=== PATIENT | female | born 1945 | race Caucasian/White ===

== ENCOUNTER 2023-06-11 08:53 | Outpatient (RCR) | payer MEDICARE, SELFPAY | END 2023-07-15 16:09 | disposition home or self-care (01) | LOC: HO.WCC 08:53 | PROVIDERS: PCP Pediatrics; Referring Provider Pediatrics; Visit Provider Surgery | DX: I87.313 Chronic venous hypertension (idiopathic) with ulcer of bilateral lower extremity (principal); L97.822 Non-pressure chronic ulcer of other part of left lower leg with fat layer exposed; L97.812 Non-pressure chronic ulcer of other part of right lower leg with fat layer exposed; R73.03 Prediabetes; G62.9 Polyneuropathy, unspecified; I10 Essential (primary) hypertension; I73.9 Peripheral vascular disease, unspecified; Z87.891 Personal history of nicotine dependence; Z95.2 Presence of prosthetic heart valve; Z86.73 Personal history of transient ischemic attack (TIA), and cerebral infarction without residual deficits; Z86.711 Personal history of pulmonary embolism | CPT/HCPCS: 11042; 97597; 99212 ==

== ENCOUNTER 2023-08-20 09:31 | Outpatient (REF) | payer MEDICARE, SELFPAY ==
[2023-08-20 09:56] LABS: MANUAL DIFF FLAG NO
[2023-08-20 10:18] LABS: Basophils Absolute Auto 0.1 X10*3/uL (0.0-0.2); Basophils Percent Auto 0.7 % (0-2); Eosinophils Absolute Auto 0.4 X10*3/uL (0.0-0.4); Eosinophils Percent Auto 4.3 % (0-4); Hematocrit 43.2 % (37.0-47.0); Hemoglobin 13.9 g/dl (12.0-16.0); Imm Gran Abs Auto 0.04 X10*3/uL (0.00-0.03); Imm Gran Pct Auto 0.4 % (0.0-0.4); Lymphocytes Absolute Auto 1.8 X10*3/uL (1.2-4.9); Mean Corpuscular HGB Conc 32.2 g/dl (31.0-35.0); Mean Corpuscular Hemoglobin 28.7 pg (27.0-33.0); Mean Corpuscular Volume 89.3 fL (80.0-98.0); Mean Platelet Volume 9.2 fL (9.4-12.3); Monocytes Absolute Auto 0.9 X10*3/uL (0.1-1.2); Monocytes Percent Auto 9.5 % (2-11); Neutrophils Absolute Auto 6.2 x10*3/uL (2.0-8.3); Neutrophils Percent Auto 66.1 % (45-73); Platelet Count 167 X10*3/uL (160-400); Red Blood Count 4.84 X10*6/uL (4.20-5.50); Red Cell Distribution Width 14.3 % (11.0-16.0); White Blood Count 9.4 X10*3/uL (4.8-10.8)
[2023-08-20 11:03] LABS: Erythrocyte Sedimentation Rate 7 MM/HR (0-20)
== END 2023-08-20 09:32 | disposition home or self-care (01) ==
LOC: HO.LAB 09:31
PROVIDERS: Visit Provider Psychiatry & Neurology Neurology
DX: G44.209 Tension-type headache, unspecified, not intractable (principal); Z20.2 Contact with and (suspected) exposure to infections with a predominantly sexual mode of transmission
CPT/HCPCS: 36415; 85025; 85652

== ENCOUNTER 2025-08-02 10:15 | Outpatient (AMB) | payer MEDICARE, SELFPAY ==
--- NOTE | 2025-08-02 10:30 | A.OFFVIS_ITS ---
Intake Visit Reasons: Follow up Allergies amoxicillin (From Augmentin) Allergy (Unknown, Verified 08/02/25 10:31) Unknown clarithromycin (From Biaxin) Allergy (Unknown, Verified 08/02/25 10:31) Unknown clavulanic acid (From Augmentin) Allergy (Unknown, Verified 08/02/25 10:31) Unknown codeine Allergy (Unknown, Verified 08/02/25 10:31) Unknown oxycodone Allergy (Unknown, Verified 08/02/25 10:31) Unknown pentazocine (From Talwin) Allergy (Unknown, Verified 08/02/25 10:31) Unknown salsalate (From Disalcid) Allergy (Unknown, Verified 08/02/25 10:31) Unknown Medication List - Last Reconciled 08/02/25 by Laila Shah CNP apixaban (Eliquis) 5 mg PO BID celecoxib 200 mg PO DAILY cholecalciferol (vitamin D3) (Vitamin D3) 25 mcg PO DAILY clopidogrel 75 mg PO DAILY cyanocobalamin (vitamin B-12) 1,000 mcg PO DAILY digoxin 125 mcg PO Q OTHER DAY empagliflozin (Jardiance) 10 mg PO QAM estradiol 0.01%(0.1mg/gram) vaginal ezetimibe 10 mg PO DAILY fluticasone furoate-vilanterol 100-25 mcg/dose (Breo Ellipta) 1 ea inhalation DAILY fluticasone propionate 50 mcg/actuation sprays intranasal hydromorphone mg PO metoprolol succinate ER 50 mg PO DAILY montelukast 10 mg PO QPM nortriptyline 25 mg PO BEDTIME pantoprazole 40 mg PO BID rosuvastatin 20 mg PO BEDTIME spironolactone 25 mg PO DAILY umeclidinium 62.5 mcg/actuation (Incruse Ellipta) 1 inh inhalation DAILY zolpidem 5 mg PO BEDTIME PRN HPI Comments Details: She had R foot surgery in 06/2025 and had Watchman procedure on 07/27/2025, on Plavix and Eliquis for now with plan to stop Eliquis in the future. Headaches have been up and down. Some days will feel good with no headaches, and other days will have heavy pressure to front of head and fatigue. May be worse with rainy weather. More headaches and fatigue lately. Sleep was okay with CPAP. Had double bypass surgery in 08/2024. Left leg is bit weaker. No stamina. Needs to nap by early afternoon. Sleeping about 9-10 hours/night, using CPAP. Gets some headaches, bifrontal pressure and eyes feel heavy. No photophobia, sonophobia, nausea, or vomiting. More headaches when cloudy or rainy. Barium swallow study was okay, pantoprazole increased to twice a day which has helped with swallowing and feeling of food getting stuck. No issues with speech. Headaches are a frontal pressure above eyes, head and eyes feel heavy with low energy and fatigue. More headaches when cloudy or rainy. No photophobia, sonophobia, nausea, or vomiting. Had cardiac cath with stent placement on 03/10/2024, was found to have 95% blockage. Was hospitalized x2 in 12/2022 while in [place] for CHF exacerbation, pulmonary infection, and foot infection. Reports hx of stroke in 07/2021 following aortic valve replacement, presented with word finding difficulty, seen at [facility]. No speech difficulties, occasional difficulty swallowing. Feels she has some issues with spatial perception as she will knock things over, unsure when this began. No new weakness, poor upper body/arm strength following bilateral rotator cuff repair around 2014 and 14 level spinal fusion in 2018. COVID positive x3, last 03/2022 with ongoing daily headaches and has been diagnosed with long COVID. Bifrontal headaches shortly after waking, lasting most of day. No associated symptoms such as photophobia, nausea, or vomiting. Was taking Tylenol 1000mg 1-2x/day for chronic back pain, no relief for headaches. Feels dizzy, describes as sensation of rocking back and forth, feeling unsteady even in sitting position. Tried meclizine without success. CT scan sinuses unremarkable. No significant hx of headaches prior to COVID, except for occasional sinus headache. [facility] Medical History (Updated 08/02/25 @ 12:01 by Laila Shah CNP) Presence of Watchman left atrial appendage closure device CHF (congestive heart failure) ROBBY on CPAP Afib IgG deficiency Asthma Post covid-19 condition, unspecified Surgical History (Updated 08/02/25 @ 12:01 by Laila Shah CNP) S/P foot surgery, right Status post double vessel coronary artery bypass H/O heart artery stent S/P spinal fusion S/P right rotator cuff repair S/P left rotator cuff repair S/P aortic valve replacement Review of Systems Const Denies chills, Denies daytime sleepiness, Denies difficulty sleeping, Reports fatigue, Denies fever(s), Denies frequent falls, Reports headache(s), Denies increased appetite, Denies poor appetite, Denies snoring, Denies weakness, Denies weight gain and Denies weight loss Eyes Denies loss of vision ENT Denies vertigo, Denies dizziness, Reports headache(s) and Reports neck pain Card Denies chest pain at rest, Denies chest pain with activity, Denies syncope, Denies leg edema, Denies palpitations, Denies dyspnea and Denies dyspnea on exertion Resp Denies cough, Denies dyspnea, Denies dyspnea on exertion and Denies snoring GI Denies abdominal pain, Denies constipation, Denies heartburn, Denies diarrhea and Denies nausea Denies urinary frequency, Denies urinary incontinence and Denies urinary urgency Musc Denies abnormal gait, Reports back pain, Reports myalgias, Denies arthralgias, Reports neck pain, Denies numbness and Denies tingling Neuro Denies abnormal gait, Denies vertigo, Denies dizziness, Denies syncope, Denies frequent falls, Reports headache(s), Denies lack of coordination, Denies loss of vision, Denies memory loss, Denies numbness, Denies Other visual disturbances, Denies restless legs, Denies seizure-like activity, Denies tingling, Denies paresthesias, Denies tremor(s) and Denies weakness Psych Reports anxiety, Denies depression, Denies auditory hallucinations, Denies memory loss and Denies visual hallucinations Endo Reports fatigue and Denies palpitations Physical Exam Const Other: General Appearance:? normal, in no acute distress. Heart:? S1, S2 normal, no murmurs. Lungs:? clear anteriorly and posteriorly. Musculoskeletal:? normal. Extremities:? no edema. Psych:? alert, oriented, cognitive function intact, cooperative with exam. 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 5-/5 L iliopsoas. With walker. Mental Status: alert and oriented X 3. Normal attention, orientation, memory, and affect. Cranial Nerves: Pupils are equal, round, and reactive to light. External ocular muscles are intact. Visual cobb are full, no ptosis. Face is symmetrical, no facial weakness or droop. Facial sensations are normal. Tongue protrudes in midline. Palate elevates symmetrically. Shoulder shrugging is normal Motor Examination: As above. Sensory Exam: Normal light touch, temperature, pinprick, vibration, and joint- position sensations. Rhomberg sign is absent. Coordination: No ataxia. No titubation. Gait Exam: With walker. Cerebellar Signs: [id number] is okay. Extrapyramidal System: No tremor, rigidity with normal facial expressions. No bradykinesia. No bradyphrenia. Normal arm swing and posture. No propulsion or retropulsion. Speech: Normal. Results Reviewed Results Reviewed: CTA head/neck at [facility] 07/2021: 1. No acute intracranial large vessel occlusion. 2. Atherosclerotic changes of the aortic arch and great vessels (Calcified plaque or embolus is noted within the left posterior sylvian fissue related to a left MCA branch vessel). Severe stenosis of the proximal nondominant artery due to heavy calcification (reported) CT head at [facility] 07/2021: No acute intracranial hemorrhage or mass effect. Focal hypodensity within the subcortical white matter of the left frontal lobe-centrum semioval which is nonspecific but given the clinical history could represent small recent ischemic infarction (reported). MRI brain WO at [facility] 07/2021: Acute-subacute left centrum semiovale, left posterior parietotemporal, and left putamen infarcts without hemorrhagic transformation (reported) Assessment & Plan Assessment & Plan (1) Tension headache: Code(s): G44.209 - Tension-type headache, unspecified, not intractable Category: Medical Plan: Continue nortriptyline 25mg 1 capsule at bedtime. (2) History of stroke: Comment: following aortic valve replacement in 07/2021 Code(s): Z86.73 - Personal history of transient ischemic attack (TIA), and cerebral infarction without residual deficits Category: Medical Plan: Reports from [facility] reviewed. She did not have CD of MRI/CT with her to review. She has been asked at multiple visits to bring CD with her to next appointment for review. Continue statin. Control blood pressure. Plan . Coding Level of Care Code Est Pt Level 4 (03451) Diagnoses Tension headache G44.209 History of stroke Z86.73
--- OUTSIDE RECORDS SUMMARY | 2025-08-02 12:06 | XMS_ITS | Clinical Summary ---
Author Organization [facility] Address [address] [place] [address] Care Team Providers Care Control Panel Operator Name Role Phone Mariano Shirley Primary Care Provider [phone] Allergies Active Allergy Reactions Criticality Noted Date Comments Adhesive Tape-Silicones Rash 09/15/2023 Aspirin Anaphylaxis High 09/15/2023 Clarithromycin Hives 09/15/2023 Oxycodone Rash 09/15/2023 Oxycodone-Acetaminophen Rash 09/15/2023 Quinine Rash 09/15/2023 Talwin Compound Rash 09/15/2023 Medications Vitamin D3 25 mcg (1,000 unit) capsule Take 1 capsule by mouth once a day. Active cyanocobalamin (VITAMIN B12) 100 mcg tablet Take 100 mcg by mouth once a day. Active FA/niacinamide/cu pric ox/Zn ox (NICOTINAMIDE ORAL) Take 1 tablet by mouth once a day. Active Bacillus coagulans (PROBIOTIC, B. COAGULANS, ORAL) Take 1 capsule by mouth once a day. Active albuterol (PROAIR HFA,VENTOLIN HFA) 90 mcg inhaler Inhale 1-2 puffs by mouth every 6 hours as needed for wheezing or shortness of breath. Use with spacer. Active ketoconazole (NIZORAL) 2% cream Apply 1 application. topically to the affected area once a day. Active immune globulin, human, (Hizentra) subcutaneous infusion Inject under the skin. Active metoprolol succinate XL (TOPROL XL) 100 mg tablet Take 50 mg by mouth once a day. Active digoxin (LANOXIN) 125 mcg (0.125 mg) tablet Take 125 mcg by mouth every other day. Active apixaban (ELIQUIS) 2.5 mg tablet Take 5 mg by mouth every 12 hours. Active clopidogreL (PLAVIX) 75 mg tablet Take 75 mg by mouth once a day. Active zolpidem (AMBIEN) 5 mg tablet Take 5 mg by mouth nightly as needed for sleep. Active montelukast (SINGULAIR) 10 mg tablet Take 10 mg by mouth nightly. Active pantoprazole DR (PROTONIX) 40 mg tablet Take 40 mg by mouth 2 times a day. Active ezetimibe (ZETIA) 10 mg tablet Take 10 mg by mouth once a day. Active magnesium glycinate 100 mg tablet Take 4 tablets by mouth once a day. Active alpha lipoic acid 600 mg capsule Take 1 capsule by mouth once a day. Active fluticasone propionate (FLONASE) 50 mcg/actuation nasal spray Administer 1 spray into each nostril once a day. Active HYDROmorphone (DILAUDID) 2 mg tablet Take 2 mg by mouth every 6 hours as needed for pain. Active cetirizine (ZyrTEC) 10 mg tablet Take 1 tablet (10 mg total) by mouth once a day. 30 tablet 11 4 Active fluticasone furoate-vilantero L (Breo Ellipta) 100-25 mcg/dose blister with device Inhale by mouth. Active furosemide (LASIX) 20 mg tablet Take 40 mg by mouth 2 times a day. Active nortriptyline (PAMELOR) 25 mg capsule Take 25 mg by mouth nightly. Active umeclidinium (Incruse Ellipta) 62.5 mcg/actuation blister with device Inhale by mouth. Active spironolactone (ALDACTONE) 25 mg tablet Take 25 mg by mouth once a day. Active empagliflozin (Jardiance) 10 mg Take 10 mg by mouth once a day. Active rosuvastatin (CRESTOR) 20 mg tablet Take 20 mg by mouth nightly. 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 09/15/2023 Drug reaction 09/15/2023 Encounters Date Type Department Care Team Description 05/31/[address] Allergy/Immunology [address] [place] [phone] Kelli Boland DO 05/11/2025 Results Follow-Up [facility] [address] Allergy/Immunology [address] [place] [phone] Kelli Boland DO 05/10/2025 9:30 AM EDT Office Visit [facility] [address] Allergy/Immunology [address] [place] [phone] Kelli Boland DO Common variable immunodeficiency (HCC) (Primary Dx); Congestive heart failure, unspecified HF chronicity, unspecified heart failure type (HCC); Chronic rhinitis; Pulmonary emphysema, unspecified emphysema type (HCC) from Last 3 Months Social History Tobacco Use Types Packs/Day Years Used Date Smoking Tobacco: Never Smokeless Tobacco: Never Alcohol Use Standard Drinks/Week Comments Never 0 (1 standard drink = 0.6 oz pur e alcohol) Comments Unknown Sex and Gender Information Value Date Recorded Sex Assigned at Female 08/05/2023 11:18 AM EDT Legal Sex Female 11:14 AM EDT Gender Identity Female 08/05/2023 11:18 AM EDT Sexual Orientation Not on file Last Filed Vital Signs Vital Sign Reading Time Taken Comments Blood Pressure 122/74 05/10/2025 9:27 AM EDT Pulse 73 05/10/2025 9:27 AM EDT Temperature - - Respiratory Rate 22 07/27/2024 9:30 AM EDT Oxygen Saturation 94% 05/10/2025 9:27 AM EDT Inhaled Oxygen Concentration - - Weight 78.7 kg (173 lb 6.4 oz) 05/10/2025 9:27 A M EDT Height - - Body Mass Index - - Plan of Treatment Upcoming Encounters Date Type Department Care Team (Late st Contact Info) Description 10/20/2025 9:30 AM EST Office Visit [facility] [address] Allergy/Immunology [address] [place] [phone] Kelli Boland DO [address] [place] [address] Health Maintenance Due Date Last Done Comments Medicare AWV 1945 Osteoporosis Screening 1994 Alcohol/Substance Use Screening 10/13/2024 Depression Screening and Follow-Up 10/13/2024 Health Care Proxy Review 10/13/2024 Social Drivers of Health Allison ual Screening 10/13/2024 Basic Metabolic Panel 12/01/2024 12/01/2023 COVID-19 Vaccine (6 - 2024-2 6 season) 2025 10/01/2023, 09/25/2022, 11/09/2021, Additional history exists Influenza Vaccine (#1) 2025 , 09/11/2023, 07/15/2022, Additional history exists DTaP,Tdap,and Td Vaccines (3 - Td or Tdap) 09/14/2030 09/14/2020, 06/29/2012 Hepatitis B Vaccines Completed 07/07/2007, 02/03/2007, 01/06/2007 Zoster Vaccines Completed 02/26/2019, 08/14, 09/05/2018 RSV Vaccine (60+ years old a nd patients) Completed 08/12/2023 Pneumococcal Vaccine: 50+ Years Completed 09/22/2023, 10/25/2021, 08/17/2019, Additional history exists Procedures * Due to [place] [employer]'s law, this organization might not be sharing negative HIV tests. Procedure Name Priority Date/Time Associated Diagnosis Comments CREATININE Routine 05/10/2025 10:24 AM EDT Common variable immunodeficiency (HCC) BUN Routine 05/10/2025 10:24 AM EDT Common variable immunodeficiency (HCC) IGG Routine 05/10/2025 10:24 AM EDT Common variable immunodeficiency (HCC) from Last 3 Months Results * Due to [place] state law, this organization might not be sharing negative HIV tests. * (ABNORMAL) BUN (05/10/2025 10:24 AM EDT) BUN 24(H) 8 - 23 mg/dL 05/10/2025 2:59 PM EDT [facility] Blood Structure of peripheral vein / Unknown Venipuncture / Unknown 05/10/2025 10:24 AM EDT 05/10/2025 10:27 AM EDT [facility] Boland DO LAB BLOOD ORDERABLES Final Result [facility] [address] [place] [address], [place] [phone] * IgG (05/10/2025 10:24 AM EDT) IgG, Serum 1218 600 - 1540 mg/dL 05/11/2025 3:13 AM EDT [employer] [facility] Blood Structure of peripheral vein / Unknown Venipuncture / Unknown 05/10/2025 10:24 AM EDT 05/10/2025 10:27 AM EDT Narrative [facility] - 05/11/2025 3:13 AM EDT [facility] Received Date:[id number] [facility] BLOOD ORDERABLES Final Result Performing Organization Address City/[facility]/ZIP Co de Phone Number MARCELO BAUMANN [address], [place] [address], [place] [phone] [facility] [address], [place] [address], [place] [phone] * Creatinine (05/10/2025 10:24 AM EDT) Creatinine 0.75 0.50 - 1.12 mg/dL 05/10/2025 2:59 PM EDT [facility] eGFR 81 >=60 mL/min/1. 73m2 05/10/2025 2:59 PM EDT [facility] Comment:The estimated glomer ular filtration rate (eGFR) is calculated using a new formula developed by the NKF-ASN task force to eliminate race-based correction factors. The new formula uses serum/plasma creatinine, age, and gender to determine eGFR. A value below 60mls/min might indicate kidney disease and will be flagged. For additional information, see Yvonne et al, Am J Kidney Dis. 2021;79(2):268- 288, A Unifying Approach for GFR estimation: Recommendations of the NKF-ASN Task Force on Reassessing the Inclusion of Race in Diagnosing Kidney Disease . Blood Structure of peripheral vein / Unknown Venipuncture / Unknown 05/10/2025 10:24 AM EDT 05/10/2025 10:27 AM EDT us Kelli Boland DO LAB BLOOD ORDERABLES Final Result [facility] [address] [place] [address], [place] [phone] from Last 3 Months Insurance [employer] [facility] MEDICARE Care Teams Control Panel Operator Relationship Specialty Start Date End Date Mariano Shirley [address] [phone] PCP - General Internal Medicine 08/05/23
--- OUTSIDE RECORDS SUMMARY | 2025-08-02 12:07 | XMS_ITS | Clinical Summary ---
Author Organization [facility] Address [address] [place] [address] Care Team Providers Care Iron Caster Name Role Phone Mariano Shirley MD Primary Care Provider Allergies Active Allergy Reactions Criticality Noted Date Comments Clarithromycin Hives Medium 09/30/2023 Salsalate Anaphylaxis High 09/30/2023 Oxycodone Hives Medium 09/30/2023 Oxycodone-Acetaminophen Hives Medium 09/30/2023 Medications No known medications Active Problems Problem Noted Date Diagnosed Date Osteoarthritis of ankle and foot, right 10/15/19 24 Social History Tobacco Use Types Packs/Day Years Used Date Smoking Tobacco: Never Assessed Comments Unknown Sex and Gender Information Value Date Recorded Sex Assigned at Not on file Legal Sex Female 3:53 PM EDT Gender Identity Not on file Sexual Orientation Not on file Plan of Treatment Health Maintenance Due Date Last Done Comments Advance Care Planning 1945 DTaP/Tdap/Td Vaccines (1 - Tdap) 1963 Pneumococcal Vaccines 50+ (1 of 1 - PCV) 1994 Zoster (Shingles) Vaccine (1 of 2) 1994 DXA Bone Density (Females,Ages 65 and older) 2009 RSV Vaccine 50 years and older and Patients (1 - 1-dose 75+ series) 2019 Influenza Vaccine 05/13/2025 09/11/2023, , 08/27/2021, Additional history exists COVID-19 Vaccine (2024- season) 2025 10/01/2023, 09/25/2022, 11/09/2021, Additional history exists Hepatitis B Vaccines Aged Out No long er eligible based on patient's age to complete this topic Insurance MEDICARE PART A & B [facility] Care Teams Iron Caster Relationship Specialty Start Date End Date Mariano Shirley MD [address] [address] PCP - General 04/22/23
--- OUTSIDE RECORDS SUMMARY | 2025-08-02 12:07 | XMS_ITS ---
Author Name [facility] Organization Unknown History of Medication Use Medication Directions Dispensed Refills Start Date End Date Stat us betamethasone acetate-betamethaso ne sodium phosphate (CELESTONE) injection 3 mg 3 mg, Intra-articular, Once PRN Procedure, Starting on Fri10/15/23 at 0900, For 1 dose 10/15/2023 10/15/2023 completed betamethasone acetate-betamethaso ne sodium phosphate (CELESTONE) injection 6 mg 6 mg, Intra-articular, Once, On Fri09/30/23 at 1600, For 1 dose, NOT FOR IV OR EPIDURAL USE. 09/30/2023 09/30/2023 completed No known medications No known medications active Allergies Allergen Reaction Severity Comment Documented Date Source Statu s OXYCODONE-ACETAMINOPHEN HIVES 09/30/2023 [facility] active CLARITHROMYCIN [facility]ES [facility] OXYCODONE [facility]ES [facility] SALSALATE ANAPHYLAXIS [facility] Problems Problem Status Onset Date Problem Type Date of Resolution Source Primary osteoarthritis, left ankle and foot active EncounterDiagnosisAct [facility] Osteoarthritis of ankle and foot, right active 2023-10-15 ProblemAct [facility] Encounters Encounter Type Encounter Reason Primary Diagnosis Location Date Ambulatory Primary osteoarthritis, right ankle and foot Primary osteoarthritis, right ankle and foot [email or web address] 02/03/2024 Ambulatory Primary osteoarthritis, right ankle and foot Primary osteoarthritis, right ankle and foot [email or web address] 02/03/2024 Ambulatory [email or web address] 10/15/2023 Ambulatory Primary osteoarthritis, right ankle and foot Primary osteoarthritis, right ankle and foot [email or web address] 10/15/2023 Ambulatory Primary osteoarthritis, left ankle and foot Primary osteoarthritis, left ankle and foot [email or web address] 09/30/2023 Ambulatory Metatarsalgia, right foot [email or web address] 04/22/2023 Care Team Organization Name Specialty Phone Email Start Date End [email or web address] Mariano Shirley Primary Care 04/22/2023 025 [facility] Mariano Shirley Primary Care 04/22/2023 023
--- OUTSIDE RECORDS SUMMARY | 2025-08-02 12:07 | XMS_ITS | Patient Health Record ---
Author Organization [facility] Address [address] [place] [address] Care Team Providers Care Choir Director Name Role Phone NONE, LISTED Primary Care Provider Stefani Ceballos Unavailable [phone] Allergies Allergen (clinical drug ingredient) Drug/Non Drug Allergy documented on EMR Reaction Allergy Type Onset Date Status Disalcid anaphylaxis Drug Allergy Activ e Biaxin hives Drug Allergy Active codeine codeine other Drug Allergy Active quinidine quinidine vomiting Drug Allergy Active oxycodone other Drug Allergy Active Talwin GI problem Drug Allergy Active Reason For Referral No Information Medications Medication SIG (Take, Route, Frequency, Duration) Notes Start Date End Date Status azelastine nasal 137 mcg/inh 2 sprays pe r nostril 2 times a day; Duration: 30 days Active ProAir HFA 90 mcg/inh 1-2 puffs as neede d up to every 4-6 hours for shortness of breath Active zolpidem 5 mg 1 tab(s) orally once a day (at bedtime) Active Symbicort 160 mcg-4.5 mcg/inh 2 puffs 2 times a day Active amitriptyline 100 mg 1 tab(s) stopped or ally once a day (at bedtime) Active Jardiance 10 mg 1 tab(s) orally once a day (in the morning) Active HYDROmorphone 2 mg 1 tab(s) orally ever y 4 hours Active nortriptyline 25 mg 1 cap(s) orally 3 ti mes a day Active spironolactone 25 mg 1 tab(s) orally onc e a day Active Metoprolol Succinate ER 50 mg 1 tab(s) orally once a day; Duration: 30 days 12/12/2022 Active Eliquis 5 mg as directed orally 2 times a day; Duration: 30 day(s) 12/12/2022 Active Dilaudid 2 mg 1 tab orally every 4 hours Active ezetimibe 10 mg 1 tab(s) orally once a day; Duration: 30 day(s) Active doxepin 25 mg 1 cap orally once a day (at bedtime) Active digoxin 62.5 mcg (0.0625 mg) 1 tab(s) ev pam other day orally once a day; Duration: 30 days 12/12/2022 Active rosuvastatin 10 mg 1 tab(s) orally once a day Active clopidogrel 75 mg 1 tab orally once a day Active Hizentra Prefilled Syringe 20% as directed Active montelukast 10 mg 1 tab once a day Active cetirizine 10 mg 1 tab once a day Active pantoprazole 40 mg 1 tab(s) orally twic e a day; Duration: 30 days Active fluticasone nasal 50 mcg/inh 2 spray(s) in each nostril stopped taking; Duration: 30 days Active ketoconazole topical 2% 1 kyle applied topically once a day; Duration: 14 days As needed Active Incruse Ellipta 62.5 mcg (0.0625 mg)/inh 1 puff every 24 hours Act haresh Flonase Allergy Relief 50 mcg/inh 2 sprays/nostril 1-2 times a day Active SALINE IRRIGATION 0.9% 2-3 oz/nostril 1- 2 times a day Active Magic mouthwash (lidocaine, benadryl, [place], nystatin) 1 tsp swish and swallow 3-4x/day Active azelastine nasal 137 mcg/inh 2 sprays pe r nostril 2 times a day; Duration: 30 days Active fluticasone nasal 50 mcg/inh 2 spray(s) in each nostril 2 times a day; Duration: 30 day(s) Active Social History Smoking Question Answer Notes history: smoked in the past Problems Problem Type SNOMED Code ICD Code Onset Dates Problem Status W/U Status Risk Notes Problem Dyspnea (849028794) dyspnea (R06.02) Active con firmed Problem Lymphadenopathy (19814751) lymphadenopathy (R59.0) Active confirmed Problem Allergic rhinitis caused by pollen (disorder) (22630186) Allergic rhinitis due to pollen (J30.1) Active confirmed Problem Other oral mucositis (ulcerative) (K12.39) Active confirmed Problem Polyarthritis (311414283) Polyarthritis, unspecified (M13.0) Active confirmed Problem 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, 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 Vital Signs Blood pressure diastolic 72 mm Hg 12/14/2024 Height 65 in 12/14/2024 Blood pressure systolic 130 mm Hg 12/14/2024 Weight 170 lbs 12/14/2024 BMI 28.29 kg/m2 12/14/2024 Encounters Encounter Location Date Provider Diagnosis [facility] [address] [place] [address] 12/14/2024 Stefani [place] immunodeficiency, common variable D83.0 ; lymphadenopathy R59.0 ; Allergic rhinitis due to pollen J30.1 ; Polyarthritis, unspecified M13.0 and Other oral mucositis (ulcerative) K12.39 Assessments Encounter Date Diagnosis (ICD Code) Assessment Notes Treatment Notes Treatment Clinical Notes Section Notes 12/14/2024 immunodeficiency, common variable (ICD-10 - D83.0) 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 She started gammaguard with excellent response and had remained infection free until treatment was stopped due to CVA 07/2021. She did well off treatment until 05/2022 when she contracted COVID x 2 and developed recurrent bronchitis and sinusitis again. IgG levels started to decline again. She is taking Hizentra 12gm weekly. She has been doing well on treatment. 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 This should really help control symptoms better. Discussed proper technique and emphasized the importance of daily use to achieve full therapeutic benefit 12/14/2024 Polyarthritis, unspecified (ICD-10 - M13.0) Appears to be consistent with osteoarthritis (aside from the occasional joint warmth), but have to keep polyarthralgia associated with immune deficiency in mind 12/14/2024 Other oral mucositis (ulcerative) (ICD-10 - K12.39) 12/14/2024 Other Thank you for t he opportunity to participate in this patient's care. Please feel free to contact me with any questions or concerns Plan Of Treatment Pending Test Test Name Order Date CT angiogram chest 12/16/2023 Insurance Providers Payer Name Payer Address Payer Phone Subscriber Number Group Number Insured Name Patient Relationship to Insured Coverage Start Date Coverage End Date MEDICARE PART B PART B CLAIMS AND CLAIMS [facility] [address] [place] [phone] [id number] BARBI PARIKH Self - patient is the insured [facility] [address] [place] [address] [id number] BARBI PARIKH Self - patient is the insured 0 Medical (General) History Medical History History ICD Code IGG Deficiency asthma hypertension gerd hyperlipidemia arthritis Surgical History Surgery Date(Month/Year) knee replacement R BL rotator cuff hernia repair spinal infusion BL foot fusion Hospitalization History Reason Date(Month/Year) surgeries
--- OUTSIDE RECORDS SUMMARY | 2025-08-02 12:07 | XMS_ITS | Data Portability ---
Author Organization [facility], Main Office Address [address] [place] [address] Care Team Providers Care Gaming Commissioner Name Role Phone MARIANO SHIRLEY Primary Care Provider [phone] ROYAL ROSARIO Orthopedic Surgeon [phone] HELGA TRIPATHI Assurance Sourcing Manager ROYAL COOPER Card Seller MARLIN SANDOVAL Inside Barrel Lathe Operator [facility] Vascular Surgeon [phone] KRISH VALENTE Pediatric Physical [facility] ZEFERINO YATES Outside Contractor Sales KRISH SIMENTAL Neurologist KRISH ACOSTA Cardiac Surgeon ARLEY SORIANO Vascular Surgeon [phone] [facility] (DENZEL CHU) Orthopedic Surgeon [facility] Yarder Puncher TRISHA COUCH Outside Contractor Sales [facility] Orthopedic Surgeon FUENTES GARCIA Crane Engineer [phone] [facility] Sleep Medicine AYANA MCDONALD Veterinary Parasitologist [phone] Assessment Encounter Date Assessment Date Assessment LastModified by Organization Details LastModified Time 03/28/2025 03/28/2025 Discussed with patient the signs/symptoms warranted for a return to office visit and/or an ER visit. Patient understood and agreed with the plan. [email or web address] Not available 03/28/2025 14:52:15 05/13/2025 05/13/2025 This service was provided using telemedicine. Patient consented to video & audio visit Patient was located at home in the [facility]. Provider was located in the office. No other persons participated in the telemedicine visit except for the patient unless otherwise indicated here. Total time of visit was 16 minutes. [email or web address] Not available 05/13/2025 14:00:48 07/01/2025 07/01/2025 This service was provided using telemedicine ([employer] ). The patient consented and was seen through synchronous audio and video technology. If audio only connection was used, the provider used telephone communication. Patient was located at home in the [facility]. Provider was located in the office. No other persons participated in the telemedicine visit except for the patient unless otherwise indicated here. Total time of visit was 9 minutes. [email or web address] Not available 07/01/2025 15:39:57 Plan of Treatment Reminders Order Date Submit Date Provider Last Modified By Organization Details Last Modified Time Details Appointments telehealt h20 2024 01:45P M Mariano Shirley MD Not available Not available Not available AWV30 2024 09:30A M Mariano Shirley MD Not available Not available Not available Lab drug screen, 14 drugs (detectim ed), urine 2024 025 [facility] (Centralized Electronic Ordering - All Locations), Patient Can Go To The Location Of Their Choice, 05/13/2025 14:02:52 urinalysi s, complete 2024 025 [facility] (Centralized Electronic Ordering - All Locations), Patient Can Go To The Location Of Their Choice, 05/13/2025 14:02:52 lipid panel, serum 2024 025 [facility] (Centralized Electronic Ordering - All Locations), Patient Can Go To The Location Of Their Choice, 05/13/2025 14:02:51 CMP, serum or plasma 2024 025 [facility] (Centralized Electronic Ordering - All Locations), Patient Can Go To The Location Of Their Choice, [id number] 05/13/2025 14:02:52 vaginal pathogens panel, AINSLEY+probe , vaginal fluid 2024 025 T[facility] (Centralized Electronic Ordering - All Locations), Patient Can Go To The Location Of Their Choice, [id number] 03/31/2025 06:08:05 Referral None recorded. Procedures None recorded. Surgeries None recorded. Imaging None recorded. Medication Orders hydromorp j carlos 4 mg tablet 2024 025 [facility] [place], [address], 07/01/2025 15:37:36 estradiol 0.01% (0.1 mg/gram) vaginal cream 2024 025 [facility], [address] [place], [address], 06/17/2025 13:48:55 clotrimaz ole-betam ethasone 1 %-0.05 % topical cream 2024 [facility], [address] [place], [address], 06/17/2025 13:47:47 fluconazo le 150 mg tablet 2024 025 [facility], [address] [place], [address], 06/26/2025 05:01:34 hydromorp j carlos 4 mg tablet 2024 025 [facility], [address] [place], [address], 05/13/2025 14:02:45 hydromorp j carlos 4 mg tablet 2024 025 [facility], [address] [place], [address], 07/01/2025 15:34:52 hydromorp j carlos 4 mg tablet 2024 025 [facility] [facility], [place], [address], 05/13/2025 14:02:45 Patient TargetsNo targets recorded. Patient Instructions Encounter Date Encounter Id Patient Instructions Last Modified By Organization Details Last Modified Time 04/18/2025 [id number] rec. get debrox kit - apply 5 drops in affected ear before bedtime, then place cotton ball - do so nightly x 1-3 nights, then use bulb syringe with warm water in the shower on the following day to irrigate the blockage out - do so monthly for prevention, avoid use of q-tips [email or web address] Not available 04/18/2025 11:38:32 05/13/2025 [id number] chronic pain: care instructions [email or web address] Not available 05/13/2025 14:02:42 Learning About Take-Home Naloxone Kits for Opioid Emergencies [email or web address] Not available 05/13/2025 14:02:42 high blood pressure: care instructions [email or web address] Not available 05/13/2025 14:02:42 learning about high blood pressure [email or web address] Not available 05/13/2025 14:02:42 high cholesterol: care instructions [email or web address] Not available 05/13/2025 14:02:42 Reviewed the risks and benefits of long-term use of opiate for chronic, non-malignant pain. Reviewed with patient that longterm opiate use is appropriate treatment based on current medical condition and patient states that continued benefit is noted. Contract for opiate use is in place. Discussed side effects of opiates. Caution driving, reviewed fall risk, and treatment for constipation, as well as option to fill in lesser amounts. A Prescription for an Opioid has been given to the patient and I have reviewed the patients profile in [facility] Partial fill of RX is possible. [email or web address] Not available 05/13/2025 13:09:21 06/17/2025 [id number] atrophic vaginitis: care instructions Not available 06/17/2025 13:48:53 bacterial vaginosis: care instructions Not available 06/17/2025 13:47:45 Reason for Referral None Reported. Results Created Date Observation Date Name Description Value Unit Range Abnormal Flag Note LastModifiedBy Organization Detail LastModifiedTime 03/28/2003/29/2025 NUA B VAGIN ITIS PLUS (VG+) atopobium vaginae Low - 0 score Not Available [facility] ([facility]) [address] [place], [address], 03/31/2025 06:08:05 03/28/2003/29/2025 NUA B VAGIN ITIS PLUS (VG+) bvab 2 Low - 0 score Not Available [facility] ([facility]) [address] [place], [address], 03/31/2025 06:08:05 03/28/2003/29/2025 NUA B VAGIN ITIS PLUS (VG+) megasphaera 1 Low - 0 score Calcu late total score by jillianin g the 3 indiv idual bacte rial vagin osis (BV) marke r score s toget her. Total score is inter prete d as follo ws: Total score 0-1: Indic ates the absen ce of BV. Total score 2: Indet ermin ate for BV. Addit ional clini karine data shoul d be evalu ated to estab doug a diagn osis. Total score 3-6: Indic ates the prese nce of BV. Not Available [facility] ([facility]) [address] [place], [address], 03/31/2025 06:08:05 03/28/2003/29/2025 NUA B VAGIN ITIS PLUS (VG+) kristi albicans, AINSLEY Negati ve negati ve Not Available [facility] ([facility]) [address] [place], [address], 03/31/2025 06:08:05 03/28/20 25 03/29/2025 NUA B VAGIN ITIS PLUS (VG+) kristi glabrata, AINSLEY Negati ve negati ve Not Available [facility] ([facility]) [address] [place], [address], 03/31/2025 06:08:05 03/28/20 25 03/30/2025 NUSWA B VAGIN ITIS PLUS (VG+) trich vag by AINSLEY Negati ve negati ve Not Available [facility] ([facility]) [address] [place], [address], 03/31/2025 06:08:05 03/28/20 25 03/30/2025 NUA B VAGIN ITIS PLUS (VG+) chlamydia trachomatis, AINSLEY Negati ve negati ve Not Available [facility] ([facility]) [address] [facility], [place], [address], 03/31/2025 06:08:05 03/28/20 25 03/30/2025 NUA B VAGIN ITIS PLUS (VG+) neisseria gonorrhoeae, AINSLEY Negati ve negati ve Not Available [facility] ([facility]) [address] [facility], [place], [address], 03/31/2025 06:08:05 06/14/2006/14/2025 MAMMO , scree jane, digit al, bilat eral PROCED URE: MM Digita l Mammo Screen ing INDICA TION: Screen ing COMPAR ALLISON: Multip le prior mammog garrett most recent ly 024 TECHNI QUE: Full-f ield digita l CC and MLO 3D tomosy nthesi s images of both breast s were acquir ed. Comput er-aid ed detect ion (CAD) was utiliz ed in the interp retati on of this study. DENSIT Y: The breast s are almost entire ly fatty. FINDIN GS: No suspic ious masses , suspic ious microc alcifi cation s, or areas of inocencia ectura l distor tion are seen in either breast to sugges t malign jacqueline. IMPRES JUAN: No mammog raphic eviden ce of malign jacqueline. RECOMM ENDATI ON: Annual mammog raphic screen ing BI-RAD S: 1 (Negat haresh) Lay letter mailed to rei PALMERN: [id number] Orderi ng Physic faye: Mariano White Dictat ed By: Willis Zeng rd, Jr, MD Dictat ed Date/T mary: 1:12 pm Review ed By: Willis Zeng rd, Jr, MD Signed By: Willis Zeng rd, Jr, MD Signed Date/T mary: 1:12 pm Transc ribed By: CSB Transc riptio n Date/T mary: 1:10 pm Birads : Rei cata Class: Outpat ient [email or web address] [facility] (Outpt Imaging) [address] [place], [address], 06/15/2025 11:11:36 06/14/20 25 06/14/2025 MAMMO , scree jane, bilat eral No observ ation record ed. [facility] [address] [place], [address], 06/15/2025 11:12:08 07/16/20 25 07/15/2025 elect rocar diogr am, routi ne ECG, 12 leads min No observ ation record ed. [email or web address] [facility] [address] [place], [address], 07/18/2025 07:14:39 Result Notes Documentation Provider Name and Address Organization Details Recorded Time Mammo, Screening, Digital, Bilateral : PROCEDURE: MM Digital Mammo Screening INDICATION: Screening COMPARISON: Multiple prior mammograms most recently 06/11/2024 TECHNIQUE: Full-field digital CC and MLO 3D tomosynthesis images of both breasts were acquired. Computer-aided detection (CAD) was utilized in the interpretation of this study. DENSITY: The breasts are almost entirely fatty. FINDINGS: No suspicious masses, suspicious microcalcifications, or areas of architectural distortion are seen in either breast to suggest malignancy. IMPRESSION: No mammographic evidence of malignancy. RECOMMENDATION: Annual mammographic screening BI-RADS: 1 (Negative) Lay letter mailed to patient WSN: [id number] Ordering Physician: Mariano Shirley Dictated By: Willis Bartholomew Jr, MD Dictated Date/Time: 06/14/25 1:12 pm Reviewed By: Willis Bartholomew Jr, MD Signed By: Willis Bartholomew Jr, MD Signed Date/Time: 06/14/25 1:12 pm Transcribed By: JERONIMO Er Medical Technician Date/Time: 06/14/25 1:10 pm Birads: Patient Class: Outpatient Traci Vaca fern, [facility] 06/15/2025 11:11:36 Problems Name Problem SNOMED Code Status Onset Date Resolution Date Notes Provider Name and Address Organization Details Recorded Time Allergic rhinitis 67008159 Active Not Available [facility] 3 08:53:10 Arthropa thy 702744636 Completed 08/11/2018 Mariano Shirley MD [address] [facility] [address], [place], [address] , [facility] 8 11:00:48 Asthma 572991041 Completed 08/02/2016 STORY: DEUCE Shirley MD [address], [place], [address] , [facility] 6 10:57:05 Pain in limb 31311178 Completed 02/03/2017 CATA Woodall, [facility] 7 09:23:17 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 74092468 Completed 08/17/2019 STORY: SECONDAR Y TO AORTIC ATHEROMA -YANCY Mariano Shirley MD [address], [place], [address] , [facility] 9 10:10:20 Malaise and fatigue 354132009 Completed 08/02/2016 Mariano Shirley MD [address] [address], [place], [address] , [facility] 6 10:58:03 Fibromyo sitis 31676510 Completed 08/08/2017 Mariano Shirley MD [address], [place], [address] , [facility] 7 11:50:56 Gastroes ophageal reflux disease 959270463 Active Not Available [facility] 3 08:53:09 Headache 46963632 Completed 02/03/2017 CATA Woodall, [facility] 7 09:22:56 Hyperlip idemia 66012734 Active Not Available [facility] 3 08:53:10 Idiopath ic progress haresh polyneur opathy 08315718 Active Not Available [facility] 3 08:53:10 Immunode ficiency disorder 060996098 Active STORY: MUDAWAAR Not Available [facility] 3 08:53:09 Insomnia 924049071 Active Not Available [facility] 3 08:53:09 Heart murmur 09584505 Completed 09/28/2020 mild , trace AR Mariano Shirley MD [address] [address], [place], [address] , [facility] 0 20:01:40 Obesity 836029146 Completed 08/02/2016 Mariano Shirley MD [address] [facility], [place], [address] , [facility] 6 10:57:45 Acute sinusiti s 87254115 Completed 07/31/2015 Mariano Shirley MD [address] [address], [place], [address] , [facility] 6 14:35:29 Fatigue 36357981 Completed 05/21/2017 Holly shirley, [facility] 7 10:57:30 Acute asthma 132810194 Completed 07/31/2015 Mariano Shirley MD [address] [address], [place], [address] , [facility] 6 14:35:29 Edema 552517357 Active Not Available [facility] 3 08:53:09 Aortic valve sclerosi s 18465381 Completed 09/28/2020 Mariano Shirley MD [address] [address], [place], [address] , [facility] 0 20:00:59 Insect bite - wound 503953926 Completed 06/01/2014 Mariano Shirley MD [address] [address], [place], [address] , [facility] 6 14:35:30 Emphysem atous bronchit is 779790579 Active Not Available [facility] 3 08:53:09 Pain of joint of foot 586157610 Completed 02/03/2017 CATA Woodall, [facility] 7 09:23:02 Cellulit is of foot 281631899 Completed 10/12/2014 Mariano Shirley MD [address] [address], [place], [address] , [facility] 6 14:35:29 History of operativ e procedur e on knee 493995386 Completed 02/03/2017 CATA Woodall, [facility] 7 09:23:09 Hyperten sive disorder 03682945 Completed 08/08/2017 Leda shirley, [facility] 2 16:34:07 Peripher al venous insuffic iency 23521421 Active Not Available [facility] hospital 3 08:53:09 Cough 87163632 Completed 08/02/2016 Mariano Shirley MD [address] [address], [place], [address] , [facility] 6 10:57:54 Paresthe vishal 23324952 Completed 08/11/2018 Mariano Shirley MD [address] [address], [place], [address] , [facility] 8 11:01:16 Body mass index 30+ - obesity 224537859 Completed 08/17/2019 Mariano Shirley MD [address] [address], [place], [address] , [facility] 4 11:16:53 Tremor 37367200 Completed 08/02/2016 Mariano Shirley MD [address] [address], [place], [address] , [facility] 7 11:50:23 Injury of lower limb 109836113 Completed 08/11/2018 Mariano Shirley MD [address] [address], [place], [address] , [facility] 8 10:59:58 Cut of taylor 992338333 Completed 08/02/2016 Mariano Shirley MD [address] [address], [place], [address] , [facility] 6 10:56:55 Disorder of rotator cuff 673107398 Active Not Available [facility] hospital 3 08:53:10 Essentia l hyperten juan 96560543 Active Not Available [facility] 3 08:53:10 Essentia l tremor 745374921 Completed 09/09/2022 Mariano Shirley MD [address] [address], [place], [address] , [facility] 2 09:28:17 Liver enzymes outside referenc e range 767560865 Completed 08/08/2017 Mariano Shirley MD [address] [address], [place], [address] , [facility] 7 11:50:16 Hypogamm aglobuli nemia 553256277 Active Not Available [facility] 3 08:53:09 Primary fibromya lgia syndrome 19728585 Active Not Available [facility] 3 08:53:10 Moderate persiste nt asthma 603383143 Active Not Available [facility] 3 08:53:10 Bee sting 481839955 Completed 08/02/2016 Mariano Shirley MD [address], [place], [address] , [facility] 6 10:55:13 Pain of hip region 91224561 Completed 05/21/2017 Holly shirley, [facility] 7 10:57:21 Pain in right knee Completed 02/03/2017 CATA Woodall, [facility] 7 09:22:36 Obesity 026444632 Active Not Available [facility] 3 08:53:10 Degenera tive scoliosi s 55273013321 9101 Active Not Available [facility] 3 08:53:09 Asthma 744730145 Active Not Available [facility] 3 08:53:09 Pulmonar y embolism 25619432 Active Not Available [facility] 3 08:53:10 Spondylo listhesi s 790323657 Active Not Available [facility] 3 08:53:09 Peripher al arterial occlusiv e disease 819065792 Active Not Available [facility] 3 08:53:10 Impairme nt of balance 085732751 Active Not Available [facility] 3 08:53:10 Acquired scoliosi s 808748401 Active Not Available [facility] 3 08:53:09 Abnormal gait 11587090 Active Not Available [facility] 3 08:53:09 Ulcer Completed 08/22/2020 Mariano Shirley MD [address], [place], [address] , [facility] 0 14:00:57 Chronic sinusiti s 98087097 Active Not Available [facility] 3 08:53:10 Neuropat hy 002101003 Active Not Available [facility] 3 08:53:10 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 647009157 Active Not Available [facility] 3 08:53:09 Venous hyperten juan 573139925 Active Not Available [facility] 3 08:53:09 Ulcer of lower extremit y 00198070 Completed 09/09/2022 Mariano Shirley MD [address] [address], [place], [address] , [facility] 2 09:30:35 Backache 165314167 Active Not Available [facility] 3 08:53:09 History of total hysterec manoj 056105197 Active 1984 Not Available [facility] 3 08:53:10 Active or passive immuniza tion Completed 201104/26/2014 RECORDED 06/29/20 12 10:39AM BY MARIANO Mcdermott MD, OFFICE VISIT Mariano Shirley MD [address] [address], [place], [address] , [facility] 6 14:35:30 Active or passive immuniza tion Completed 201105/23/2014 RECORDED 06/29/20 12 10:39AM BY MARIANO Mcdermott MD, OFFICE VISIT Mariano Shirley MD [address] [address], [place], [address] , [facility] 6 14:35:30 Asthma 193016194 Completed 201104/26/2014 RECORDED 10/12/20 12 12:38PM BY ARMANI MINATI ON/ADDEN DUM Mariano Shirley MD [address] [address], [place], [address] , [facility] 6 10:57:05 Screenin g for malignan t neoplasm of colon Completed 201104/26/2014 RECORDED 10/12/20 12 12:38PM BY ARMANI MINATI ON/MARIAH Shirley MD [address] [facility] [address], [place], [address] , [facility] 6 14:35:30 Idiopath ic peripher al neuropat hy 20343620 Completed 201104/26/2014 RECORDED 10/12/20 12 12:37PM BY ZIA MIN ON/MARIAH Shirley MD [address] [facility] [address], [place], [address] , [facility] 6 14:35:29 Administ ration of diphther ia and tetanus vaccine Completed 201104/26/2014 RECORDED 10/12/20 12 12:38PM BY ZIA MIN ON/MARIAH Shirley MD [address] [facility] [address], [place], [address] , [facility] 6 14:35:30 Screenin g for malignan t neoplasm of colon Completed 201105/23/2014 RECORDED 10/12/20 12 12:38PM BY ZIA MIN ON/MARIAH Shirley MD [address] [facility] [address], [place], [address] , [facility] 6 14:35:30 Idiopath ic peripher al neuropat hy 38013341 Completed 201105/23/2014 RECORDED 10/12/20 12 12:37PM BY ZIA MIN ON/MARIAH Shirley MD [address] [facility] [address], [place], [address] , [facility] 6 14:35:29 Administ ration of diphther ia and tetanus vaccine Completed 201105/23/2014 RECORDED 10/12/20 12 12:38PM BY ZIA MIN ON/MARIAH Shirley MD [address] [facility] [address], [place], [address] , [facility] 6 14:35:30 Procedur e Completed 201204/26/2014 RECORDED 12/31/19 13 11:20AM BY BRENDA ROGERS MA, ARMANIATI ON/ADDCAM Shirley MD [address], [place], [address] , [facility] 6 14:35:30 Procedur e Completed 201205/23/2014 RECORDED 12/31/19 13 11:20AM BY BRENDA ROGERS MA, ANNOTATI ON/MARIAH Shirley MD [address], [place], [address] , [facility] 6 14:35:30 Tobacco user [id number] Completed 201204/26/2014 RECORDED 01/21/20 13 10:29AM BY BRENDA ROGERS MA, ANNOTATI ON/MARIAH Shirley MD [address], [place], [address] , [facility] 6 14:35:29 Tobacco user [id number] Completed 201205/23/2014 RECORDED 01/21/20 13 10:29AM BY BRENDA ROGERS MA, ZIA ON/MARIAH Shirley MD [address], [place], [address] , [facility] 6 14:35:29 History of clinical finding in subject 675751363 Completed 201206/01/2014 RECORDED 01/21/20 13 10:29AM BY BRENDA ROGERS MA, ANNOTATI ON/MARIAH Shirley MD [address], [place], [address] , [facility] 6 14:35:30 Disorder of lower extremit y Completed 201204/26/2014 IMPRESSI ON: WITH SURROUND ING ERYTHEMA AROUND ABRASION ON PREVIOUS SKIN GRAFT SITE WILL START ABX AND F/U WITH SURGEON WHO PERFORME D GRAFT.; RECORDED 06/01/20 13 8:49AM BY BRENDA ROGERS MA, ZIA CARRILLO/MARIAH Shirley MD [address], [place], [address] , [facility] 6 14:35:30 Edema 595244055 Completed 201204/26/2014 IMPRESSI ON: HAS HISTORY OF PERIPHER AL VASCULAR DISEASE WITH EDEMA AND NOW NEW WOUND. WILL CONSULT FOR ASSITANC E WITH EDEMA AND WOUND MANAGEME NT.; RECORDED 06/01/20 13 8:49AM BY BRENDA ROGERS MA, ZIA CARRILLO/MARIAH Shirley MD [address] [address], [place], [address] , [facility] 6 14:35:29 Disorder of lower extremit y Completed 201205/23/2014 IMPRESSI ON: WITH SURROUND ING ERYTHEMA AROUND ABRASION ON PREVIOUS SKIN GRAFT SITE WILL START ABX AND F/U WITH SURGEON WHO PERFORME D GRAFT.; RECORDED 06/01/20 13 8:49AM BY BRENDA ROGERS MA, ZIA CARRILLO/MARIAH Shirley MD [address] [facility] [address], [place], [address] , [facility] 6 14:35:30 Edema 923084489 Completed 201205/23/2014 IMPRESSI ON: HAS HISTORY OF PERIPHER AL VASCULAR DISEASE WITH EDEMA AND NOW NEW WOUND. WILL CONSULT FOR ASSITANC E WITH EDEMA AND WOUND MANAGEME NT.; RECORDED 06/01/20 13 8:49AM BY BRENDA ROGERS MA, ZIA CARRILLO/MARIAH Shirley MD [address] [facility] [address], [place], [address] , [facility] 6 14:35:30 Cellulit is [id number] Completed 201204/26/2014 IMPRESSI ON: WITH SURROUND ING WARMTH/E RYTHEMA, SOME SUSPICIO N FOR CELLULIT IS. HAS TOLERATE D AND RESPONDE D WELL TO BACTRIM FOR SIMILAR ISSUE IN THE PAST. PT TO ARRANGE APPT WITH DR HAINES FOR FURTHER WOUND CARE. ELEVATIO N AND OTC WOUND CARE ADVISED IN MEANTIME .; RECORDED 07/01/20 13 9:48AM BY BRENDA ROGERS MA, ZIA ON/MARIAH Shirley MD [address], [place], [address] , [facility] 6 14:35:29 Influenz a vaccine needed [id number] 06 Completed 201204/26/2014 RECORDED 07/01/20 13 9:57AM BY BRENDA ROGERS MA, OFFICE VISIT Mariano Shirley MD [address], [place], [address] , [facility] 6 14:35:30 Cellulit is [id number] Completed 201205/23/2014 IMPRESSI ON: WITH SURROUND ING WARMTH/E RYTHEMA, SOME SUSPICIO N FOR CELLULIT IS. HAS TOLERATE D AND RESPONDE D WELL TO BACTRIM FOR SIMILAR ISSUE IN THE PAST. PT TO ARRANGE APPT WITH DR HAINES FOR FURTHER WOUND CARE. ELEVATIO N AND OTC WOUND CARE ADVISED IN MEANTIME .; RECORDED 07/01/20 13 9:48AM BY BRENDA ROGERS MA, ZIA ON/MARIAH DUM Mariano Shirley MD [address], [place], [address] , [facility] 6 14:35:29 Influenz a vaccine needed [id number] 06 Completed 201205/23/2014 RECORDED 07/01/20 13 9:57AM BY BRENDA ROGERS MA, OFFICE VISIT Mariano Shirley MD [address], [place], [address] , [facility] 6 14:35:30 Adult health examinat ion Completed 201204/26/2014 IMPRESSI ON: WILL UPDATE IMMUNIZA TION STATUS (ZOSTAVA X CONTRAIN DICATED) AND SCREEN BASED ON RISK FACTORS. REGULAR DENTAL CARE AND SEATBELT USE ADVISED. DISTRACT ED DRIVING DISCUSSE D. COLON AND BREAST CANCER SCREENIN G UTD. CERVICAL CANCER SCREENIN G NOT INDICATE D POST HYSTEREC MANOJ.; RECORDED 08/26/20 13 9:12AM BY SHA KELLER MA, ANNOTATI ON/MARIAH Shirley MD [address], [place], [address] , [facility] 6 14:35:30 Screenin g for malignan t neoplasm of breast Completed 201204/26/2014 RECORDED 08/26/20 13 9:12AM BY SHA KELLER MA, ANNOTATI ON/MARIAH Shirley MD [address], [place], [address] , [facility] 6 14:35:30 Chronic sinusiti s [id number] Completed 201204/26/2014 IMPRESSI ON: PERSISTA NT SYMPTOMS S/P EXTENSIV E TREATMEN T. NEED IMAGING TO SEE WHTHER THIS EXPLAINS HER SYMPTOMS .; RECORDED 08/26/20 13 9:12AM BY SHA KELLER MA, ANNOTATI ON/MARIAH Shirley MD [address], [place], [address] , [facility] 6 14:35:29 Adult health examinat ion Completed 201205/23/2014 IMPRESSI ON: WILL UPDATE IMMUNIZA TION STATUS (ZOSTAVA X CONTRAIN DICATED) AND SCREEN BASED ON RISK FACTORS. REGULAR DENTAL CARE AND SEATBELT USE ADVISED. DISTRACT ED DRIVING DISCUSSE D. COLON AND BREAST CANCER SCREENIN G UTD. CERVICAL CANCER SCREENIN G NOT INDICATE D POST HYSTEREC MANOJ.; RECORDED 08/26/20 13 9:12AM BY SHA KELLER MA, ZIA ON/MARIAH Shirley MD [address], [place], [address] , [facility] 6 14:35:30 Screenin g for malignan t neoplasm of breast Completed 201205/23/2014 RECORDED 08/26/20 13 9:12AM BY SHA KELLER MA, ANNOTATI ON/MARIAH Shirley MD [address], [place], [address] , [facility] 6 14:35:30 Chronic sinusiti s [id number] Completed 201205/23/2014 IMPRESSI ON: PERSISTA NT SYMPTOMS S/P EXTENSIV E TREATMEN T. NEED IMAGING TO SEE WHTHER THIS EXPLAINS HER SYMPTOMS .; RECORDED 08/26/20 13 9:12AM BY SHA KELLER MA, ANNOTATI ON/MARIAH Shirley MD [address], [place], [address] , [facility] 6 14:35:29 Open wound of multiple sites of one upper limb Completed 201304/26/2014 IMPRESSI ON: DOES NOT APPEAR TO HAVE A SECONDAR Y BACTERIA L INFX BUT IS SLOW TO HEAL, SHE HAS SEEN DR. GONZALES BEFORE FOR WOUND CARE SO SHE WILL MAKE AN APPT WITH HIM. ADVISE TO CALL BACK IS ANY SIGNS OF INFX(SANDRA N, REDNESS, WARMTH, DRAINAGE , FEVER).; RECORDED 10/15/19 14 10:37AM BY BRENDA ROGERS MA, ANNOTATI ON/MARIAH Shirley MD [address], [place], [address] , [facility] 6 14:35:30 Open wound of multiple sites of one upper limb Completed 201305/23/2014 IMPRESSI ON: DOES NOT APPEAR TO HAVE A SECONDAR Y BACTERIA L INFX BUT IS SLOW TO HEAL, SHE HAS SEEN DR. GONZALES BEFORE FOR WOUND CARE SO SHE WILL MAKE AN APPT WITH HIM. ADVISE TO CALL BACK IS ANY SIGNS OF INFX(SANDRA N, REDNESS, WARMTH, DRAINAGE , FEVER).; RECORDED 10/15/19 14 10:37AM BY BRENDA ROGERS MA, ZIA ON/MARIAH Shirley MD [address], [place], [address] , [facility] 6 14:35:30 Cough [id number] Completed 201304/26/2014 RECORDED 01/01/20 14 11:06AM BY ZIA MIN/MARIAH Shirley MD [address], [place], [address] , [facility] 6 10:57:54 Pain of hip region 08356002 Completed 201304/26/2014 RECORDED 01/01/20 14 11:06AM [facility]IA [facility] Cough [id number] Completed 201305/23/2014 RECORDED 01/01/20 14 11:06AM BY ZIA MIN/MARIAH Shirley MD [address], [place], [address] , [facility] 6 10:57:54 Pain of hip region 82443785 Completed 201305/23/2014 RECORDED 01/01/20 14 11:06AM [facility] 10:57:21 Open wound 715050207 Completed 201304/26/2014 RECORDED 01/13/20 14 11:28AM BY BRENDA ROGERS MA, ANNOTATI ON/MARIAH Shirley MD [address] [facility] [address], [place], [address] , [facility] 6 14:35:30 Open wound 864617603 Completed 201305/23/2014 RECORDED 01/13/20 14 11:28AM BY BRENDA ROGERS MA, ANNOTATI ON/ADDEN DUM Mariano Shirley MD [address], [place], [address] , [facility] 6 14:35:30 Acute sinusiti s 69532342 Completed 201305/23/2014 IMPRESSI ON: BASED ON DURATION OF SYMPTOMS AND PT'S COMORBID ITIES WILL COVER FOR POSSIBLE SECONDAR Y BACTERIA L PROCESS. I SUSPECT THAT THIS MAY HAVE BEEN PRECIPIT ATED BY SEASONAL ALLERGIE S.; RECORDED 03/16/20 14 8:36AM BY BRENDA ROGERS MA, ANNOTATI ON/ADDEN DUM Mariano Shirley MD [address], [place], [address] , [facility] 6 14:35:29 Tendon rupture - shoulder 297731725 Completed 201508/22/2020 Mariano Shirley MD [address] [facility], [place], [address] , [facility] 0 14:00:52 Candidia sis of mouth 96247763 Completed 201508/11/2018 Mariano Shirley MD [address], [place], [address] , [facility] 8 10:59:27 Claudica tion Active 2016 Not Available [facility] 3 08:53:09 Hand pain 32133925 Completed 201605/21/2017 Holly shirley, [facility] 7 10:57:25 Spinal stenosis of lumbar region 89215302 Active 2016 L4/L5 Not Available [facility] 3 08:53:09 Inflamma tion of sacroili ac joint 61948842 Completed 201606/28/2017 Mariano Shirley MD [address] [facility] [address], [place], [address] , [facility] 7 08:14:51 Carpal tunnel syndrome 55187480 Completed 201601/13/2019 Mariano Shirley MD [address] [facility] [address], [place], [address] , [facility] 9 12:05:34 Lumbar radiculo rose marie 848019218 Active 2016 Not Available [facility] 3 08:53:09 Levoscol iosis 95179857692 4102 Active 2016 severe upper lumbar spine Not Available [facility] 3 08:53:10 Tremor 00563549 Completed 201608/08/2017 Mariano Shirley MD [address], [place], [address] , [facility] 7 11:50:23 Peripher al vascular disease 277199557 Active 2016 Not Available [facility] 3 08:53:10 Carotid bruit 741999641 Completed 201608/08/2017 left Mariano Shirley MD [address] [facility] [place], [address] , [facility] 7 11:48:29 Carotid artery stenosis 52628513 Active 2016 50-69% Not Available [facility] 3 08:53:10 Carotid atherosc lerosis 386010431 Completed 201608/17/2019 Mariano Shirley MD [address] [facility] [address], [address] , [facility] 9 10:08:07 Cellulit is of left lower limb 69938397552 145752 Completed 201608/08/2017 Mariano Shirley MD [address], [place], [address] , [facility] 7 11:47:26 Erythroc yte sediment ation rate above referenc e range 208298906 Active 2016 Not Available [facility] 3 08:53:09 Divertic ular disease 460060879 Active 2016 Not Available [facility] 3 08:53:10 Hernia of abdomina l cavity 89237443 Completed 201608/17/2019 Mariano Shirley MD [address], [place], [address] , [facility] 9 10:07:45 Cholangi ectasis 853119725 Active 2016 Not Available [facility] 3 08:53:09 Pancreas divisum 03063876 Active 2017 Not Available [facility] 3 08:53:10 Diastoli c dysfunct ion 0269580 Active 2017 Not Available [facility] 3 08:53:10 Atrial dilatati on 12897223 Active 2017 left Not Available [facility] 3 08:53:10 Generali zed osteoart hritis of the hand 054693707 Active 2017 mod/cristian re left Not Available [facility] 3 08:53:09 History of pulmonar y embolus 779511475 Active 2017 Not Available [facility] 3 08:53:09 Umbilica l hernia 902289052 Active 2017 Not Available [facility] 3 08:53:10 Bilatera l trochant tammi bursitis 45243894078 974463 Active 2018 Not Available [facility] 3 08:53:09 Osteoart hritis of hip 947919264 Active 2018 left Not Available [facility] 3 08:53:09 Iliotibi al band friction syndrome 495044407 Active 2018 Not Available [facility] 3 08:53:10 History of arterial thrombos is 52305611944 360595 Active 2018 Not Available [facility] 3 08:53:09 Albuminu stephen 010387048 Active 2019 Not Available [facility] 3 08:53:09 Spinal stenosis of thoracic region 98699910 Active 2019 T6-T8 Not Available [facility] 3 08:53:10 Fracture of lumbar spine 832331000 Active 2019 L5 pedicle Not Available [facility] 3 08:53:09 Lumbar spondylo listhesi s 89515360636 9102 Active 2019 Not Available [facility] 3 08:53:09 Orthoped ic hardware in situ 785778668 Active 2019 Not Available [facility] 3 08:53:10 Peroneal tendinit is 58635708 Active 2019 Not Available [facility] 3 08:53:10 Left atrial dilatati on 381228816 Active 2019 Not Available [facility] 3 08:53:09 Mitral valve stenosis 41943561 Active 2019 Not Available [facility] 3 08:53:10 Aortic valve stenosis 47528397 Completed 201907/15/2022 s/p TAVR Removal Reason: s/p AVR Mariano Shirley MD [address] [address], [place], [address] , [facility] 4 11:40:28 Aortic valve stenosis 72677611 Completed 201910/15/2023 Mariano Shirley MD [address] [address], [place], [address] , [facility] 4 11:40:28 Polyneur opathy 03328683 Completed 202009/09/2022 lower extremit ies Mariano Shirley MD [address] [address], [place], [address] , [facility] 2 09:30:01 Iliac artery stenosis 916673663 Active 2020 left Not Available [facility] 3 08:53:09 Iliotibi al band friction syndrome 694735692 Active 2020 Not Available [facility] 3 08:53:10 Bilatera l bursitis of hips 45588511587 966777 Completed 202009/09/2022 Mariano Shirley MD [address], [place], [address] , [facility] 2 09:27:11 History of spinal fusion 34879503293 107 Active 2020 Not Available [facility] 3 08:53:10 Arterios clerotic vascular disease 19172757 Active 2020 proximal innomina te stenosis severe Not Available [facility] 3 08:53:10 CVA - cerebrov ascular accident due to cerebral artery occlusio n 007837678 Active 2020 left centrum semioval e/pariet otempora l/putame n Not Available [facility] 3 08:53:09 Antibiot ic prophyla xis indicate d 276626892 Active 2020 Not Available [facility] 3 08:53:10 Body mass index 30+ - obesity 391560316 Completed 202007/12/2024 Mariano Shirley MD [address], [place], [address] , [facility] 4 11:16:53 Hypokale fidel 06464235 Completed 202007/12/2024 Mariano Shirley MD [address], [place], [address] , [facility] 4 10:43:13 Abdomina l aortic aneurysm 984361186 Active 2020 3cm Not Available [facility] 3 08:53:09 Coronary arterios clerosis 15085522 Active 2020 Not Available [facility] 3 08:53:10 Drug-ind uced constipa tion 49916618 Completed 202009/09/2022 Mariano Shirley MD [address], [place], [address] , [facility] 2 09:27:56 Restless legs syndrome 63305954 Active 2021 Not Available [facility] 3 08:53:09 Osteoart hritis of knee 936797567 Active 2021 left Not Available [facility] 3 08:53:09 Stenosis of brachioc ephalic artery 558233124 Active 2021 Not Available [facility] 3 08:53:10 COVID-19 619482597 Completed 202104/19/2022 Mariano Shirley MD [address], [place], [address] , [facility] 2 13:24:45 Diarrhea 39895878 Completed 202109/09/2022 Mariano Shirley MD [address], [place], [address] , [facility] 2 09:27:49 Dizzines s 490624201 Active 2021 Not Available [facility] 3 08:53:10 History of SARS-CoV -2 95710266301 9611414 Active 2021 Not Available [facility] 3 08:53:09 Post-acu te COVID-19 8624376639 Active 2021 Not Available [facility] 3 08:53:09 Prediabe osito 564366762 Active 2021 Not Available [facility] 3 08:53:10 Cardiome best 4083384 Active 2021 Not Available [facility] 3 08:53:10 Non-rheu matic mitral valve stenosis 140290189 Active 2021 Not Available [facility] 3 08:53:09 Urge incontin ence of urine 57880532 Active 2021 Not Available [facility] 3 08:53:10 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 74551672969 199346 Active 2021 Not Available [facility] 3 08:53:09 Hyperten juan monitori ng status 048524324 Active 2021 enrolled Not Available [facility] 3 08:53:09 Paroxysm al atrial fibrilla tion with rapid ventricu lar response 1362510007 Completed 202203/02/2025 Mariano Shirley MD [address], [place], [address] , [facility] 5 19:41:23 Obstruct haresh sleep apnea syndrome 44565337 Active 2022 Not Available [facility] 3 08:53:10 Persiste nt atrial fibrilla tion 133152818 Active 2022 Mariano Shirley MD [address], [place], [address] , [facility] 5 19:41:38 Atrial fibrilla tion 60556963 Completed 202207/20/2025 Mariano Shirley MD [address], [place], [address] , [facility] 5 21:02:21 Vascular calcific ation, radiogra phic finding 731599148 Active 2022 Not Available [facility] 3 08:53:09 Fracture of manubriu pedro sterni 32067553360 352167 Completed 202201/13/2024 Mariano Shirley MD [address], [place], [address] , [facility] 4 09:44:39 Spinal stenosis in cervical region 31533765 Active 2022 C4-C5, C6-C7 Not Available [facility] 3 08:53:10 Degenera tion of cervical interver tebral disc 25287808 Active 2022 Not Available [facility] 3 08:53:10 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 15916829 Active 2022 Not Available [facility] 3 08:53:10 Cervical radiculo rose marie 79426977 Active 2022 Not Available [facility] 3 08:53:10 History of go cart mechanic al aortic valve replacem ent 42367003791 9107 Active 2022 Not Available [facility] 3 08:53:09 Common variable agammagl obulinem ia 02524437 Active 2022 Evelina Martinez MA [facility], [facility] 4 10:16:10 History of aortic valve repair 24695006933 9105 Active 2023 Mariano Shirley MD [address], [place], [address] , [facility] 4 11:40:39 Dilatati on of aorta 32979314 Active 2023 3.7cm Mariano Shirley MD [address] [facility] [address], [place], [address] , [facility] 4 11:41:14 Osteoart hritis of left foot 93090922926 86570 Active 2023 Mariano Shirley MD [address] [facility] [address], [place], [address] , [facility] 4 21:56:03 Vascular insuffic iency of limb 872268041 Active 2023 Mariano Shirley MD [address], [place], [address] , [facility] 4 13:18:37 Body mass index 30+ - obesity 262291629 Active 2023 Mariano Shirley MD [address], [place], [address] , [facility] 4 11:16:53 Hypercoa gulabili [facility] 25083825 Active 2023 Mariano Shirley MD [address], [place], [address] , [facility] 4 11:21:40 Seborrhe ic dermatit is 43448340 Active 2024 Mariano Shirley MD [address], [place], [address] , [facility] 5 11:52:47 Bilatera l renal artery stenosis 147776293 Active 2024 Mariano Shirley MD [address], [place], [address] , [facility] 5 19:36:41 Heart failure 09188498 Active 2024 Mariano Shirley MD [address], [place], [address] , [facility] 5 19:41:02 Problem Notes None recorded. Procedures Surgical History Date Name Laterality Status Provider Name and Address Organization Details Recorded Time 06/14/20 25 Most Recent Mammogram completed Traci Vaca [facility] 06/15/2025 11:11:32 06/14/20 25 Mammogram Screening completed Traci Vaca [facility] 06/15/2025 11:11:16 05/13/20 25 Chronic Pain Assessment completed Demi Pastor MA [facility] 05/13/2025 13:15:12 09/29/20 24 Echo transthoracic completed Mariano Shirley MD [address] [facility], [place], [address], [facility] 10/03/2024 17:17:38 09/03/20 24 femorodistal bypass completed Mariano Shirley MD [address] [facility], [place], [address], [facility] 09/08/2024 12:36:37 07/12/20 24 Chronic Pain Assessment completed Evelina Martinez MA [facility] 07/12/2024 10:30:07 04/05/20 24 Chronic Pain Assessment completed Evelina Martinez MA [facility] 04/05/2024 10:59:31 03/10/20 24 cardiac catheterization completed Mariano Shirley MD [address] [facility], [place], [address], [facility] 03/10/2024 11:19:39 12/18/19 24 Echo transthoracic completed Mariano Shirley MD [address] [facility], [place], [address], [facility] 01/13/2024 21:59:19 10/07/20 23 Echo transthoracic completed Mariano Shirley MD [address] [facility], [place], [address], [facility] 10/15/2023 11:39:33 09/11/20 23 Advanced Care Planning completed Mariano Shirley MD [address] [facility], [place], [address], [facility] 09/11/2023 10:09:20 05/27/20 23 Chronic Pain Assessment completed Evelina Martinez MA [facility] 05/27/2023 13:01:09 04/18/20 23 Chronic Pain Assessment completed Evelina Martinez MA [facility] 04/18/2023 09:00:14 02/19/20 23 injection of joint of ankle completed Mariano Shirley MD [address] [facility], [place], [address], [facility] 05/07/2023 07:34:33 01/24/20 23 Chronic Pain Assessment completed Cait reynoso MA [facility] 01/23/2023 11:54:07 11/26/19 23 cardioversion completed Mariano Shirley MD [address] [facility], [place], [address], [facility] 01/04/2023 22:19:24 10/24/19 23 Chronic Pain Assessment completed Evelina Martinez MA [facility] 10/24/2022 11:08:33 09/09/20 22 Advanced Care Planning completed Mariano Shirley MD [address] [address], [place], [address], [facility] 09/09/2022 09:42:28 08/07/20 22 Echo transthoracic completed Mariano Shirley MD [address] [address], [place], [address], [facility] 08/28/2022 07:23:29 08/06/20 22 Chronic Pain Assessment completed Brenda Rogers MA [facility] 08/06/2022 10:15:33 04/02/20 22 Chronic Pain Assessment completed Brenda Rogers [facility] 04/02/2022 11:08:45 02/06/20 22 injection of knee joint completed Mariano Shirley MD [address], [address], [facility] 02/15/2022 07:18:59 01/16/20 22 Chronic Pain Assessment completed Brenda Rogers [facility] 01/15/2022 13:16:46 12/22/19 22 Chronic Pain Assessment completed Brenda Rogers MA [facility] 12/21/2021 09:49:04 09/25/20 21 Chronic Pain Assessment completed Brenda Rogers MA [facility] 09/25/2021 10:47:05 07/23/20 21 transcatheter aortic valve replacement completed Mariano Shirley MD [address] [facility], [place], [address], [facility] 08/15/2021 08:18:15 07/23/20 21 Cardiac Surgery completed Brenda Rogers MA [facility] 08/27/2021 09:30:10 07/17/20 21 Echo transthoracic completed Mariano Shirley MD [address] [facility], [place], [address], [facility] 04/02/2022 22:07:53 05/29/20 21 release of trigger finger completed Mariano Shirley MD [address] [facility], [place], [address], [facility] 06/03/2021 20:31:07 05/25/20 21 Chronic Pain Assessment completed Brenda Rogers MA [facility] 05/25/2021 13:07:54 05/21/20 21 Coronary artery angio s&i completed Mariano Shirley MD [address] [facility], [place], [address], [facility] 06/27/2021 20:14:08 04/12/20 21 Chronic Pain Assessment completed Brenda Rogers MA [facility] 04/12/2021 08:57:27 04/12/20 21 injection into bursa completed Mariano Shirley MD [address] [facility], [place], [address], [facility] 04/18/2021 20:25:28 03/15/20 21 Echo transthoracic completed Mariano Shirley MD [address] [facility], [place], [address], [facility] 04/13/2021 10:06:40 01/20/20 21 Chronic Pain Assessment completed Mariano Shirley MD [address] [address], [place], [address], [facility] 01/19/2021 13:25:44 10/27/19 21 Chronic Pain Assessment completed Brenda Rogers MA [facility] 10/27/2020 10:20:43 09/15/20 20 injection of joint of ankle completed Mariano Shirley MD [address] [address], [place], [address], [facility] 09/24/2020 13:48:11 08/22/20 20 Advanced Care Planning completed Mariano Shirley MD [address], [address], [facility] 08/22/2020 14:02:30 08/22/20 20 Six-Item Cognitive Test completed Brenda Rogers MA [facility] 08/22/2020 09:41:07 05/02/20 20 Chronic Pain Assessment completed Brenda Rogers MA [facility] 05/02/2020 11:49:01 02/24/20 20 posterior spinal instrumentation completed Marlen Mckeon [facility] 06/05/2020 15:47:11 01/25/20 20 Chronic Pain Assessment completed Brenda Rogers MA [facility] 01/25/2020 09:28:27 09/20/20 19 Chronic Pain Assessment completed Cait reynoso MA [facility] 09/20/2019 09:30:26 08/17/20 19 Mini-Cog Test completed Brenda Rogers MA [facility] 08/17/2019 09:47:05 08/17/20 19 Advanced Care Planning completed Mariano Shirley MD [address], [address], [facility] 08/17/2019 10:32:22 07/15/20 19 Xcapsl ctrc rmvl cplx wo ecp completed Brenda Rogers MA [facility] 08/17/2019 09:41:58 07/01/20 19 Xcapsl ctrc rmvl cplx wo ecp completed Brenda Rogers MA MA [facility] 08/17/2019 09:41:40 05/25/20 19 Chronic Pain Assessment completed Brenda Rogers MA [facility] 05/25/2019 10:13:41 02/20/20 19 Chronic Pain Assessment completed Brenda Rogers MA [facility] 02/19/2019 09:30:15 01/22/20 19 Orthopedic Surgery completed Mariano Shirley MD [address], [place], [address], [facility] 02/19/2019 09:44:16 10/14/19 19 Chronic Pain Assessment completed Brenda Rogers MA [facility] 10/14/2018 09:23:37 09/24/20 18 Most Recent Bone Density completed Brenda Rogers MA [facility] 08/22/2020 09:39:17 09/24/20 18 Dxa bone density evaristo vrt fx completed Brenda Rogers MA [facility] 08/22/2020 09:38:28 09/15/20 18 Chronic Pain Assessment completed Brenda Rogers MA [facility] 09/15/2018 13:47:00 08/26/20 18 Date of Last Colonoscopy completed Brenda Rogers MA [facility] 05/25/2019 10:22:11 08/26/20 18 Cologuard completed Brenda Rogers MA [facility] 05/25/2019 10:21:56 08/11/20 18 Mini-Cog Test completed Brenda Rogers MA [facility] 08/11/2018 10:25:57 02/24/20 18 Neurosurgery completed Mariano Shirley MD [address], [place], [address], [facility] 03/13/2018 04:36:01 02/24/20 18 posterior fusion of lumbar spine completed Marlen Mckeon [facility] 06/05/2020 15:46:51 11/03/19 18 Unlisted procedure spine completed Mariano Shirley MD [address] [facility] [address], [place], [address], [facility] 12/16/2017 20:43:47 10/14/19 18 Chronic Pain Assessment completed Brenda Rogers MA [facility] 10/14/2017 11:18:04 09/12/20 17 Chronic Pain Assessment completed Brenda Rogers MA [facility] 09/12/2017 10:05:02 08/08/20 17 Fall Risk Assessment completed Brenda Rogers MA [facility] 08/08/2017 11:25:19 08/08/20 17 Mini-Cog Test completed Brenda Rogers MA [facility] 08/08/2017 11:25:28 11/01/19 17 Angioplasty completed Mariano Shirley MD [address] [facility] [address], [place], [address], [facility] 08/17/2019 10:05:36 08/02/20 16 Fall Risk Assessment completed Brenda Rogers MA [facility] 08/02/2016 10:32:33 08/02/20 16 Mini-Cog Test completed Brenda Rogers MA [facility] 08/02/2016 10:33:08 07/31/20 15 Fall Risk Assessment completed Brenda Rogers MA [facility] 07/31/2015 11:34:52 07/31/20 15 Mini-Cog Test completed Brenda Rogers MA [facility] 07/31/2015 11:34:52 07/18/20 14 Fall Risk Assessment completed Brenda Rogers MA [facility] 07/18/2014 09:44:28 07/18/20 14 Mini-Cog Test completed Brenda Rogers MA [facility] 07/18/2014 09:44:28 08/05/20 13 completed Brenda Rogers MA [facility] 07/18/2014 09:44:29 10/13/19 10 Joint Replacement completed Evelina Martinez MA [facility] 09/09/2022 08:55:59 12/07/19 08 Egd diagnostic brush wash completed Coleen Cain [facility] 10/01/2017 09:39:16 01/28/20 07 Colonoscopy completed Mariano Shirley MD [address], [place], [address], [facility] 08/27/2021 10:16:57 01/28/20 04 completed Brenda Rogers MA [facility] 07/18/2014 09:44:29 11/13/18 96 ENT Surgery completed Brenda Rogers MA [facility] 08/08/2017 11:19:04 10/13/18 85 Total hysterectomy completed Cait reynoso MA [facility] 12/10/2017 14:04:47 12/29/18 81 Caesarean Section completed Brenda Rogers MA [facility] 08/08/2017 11:19:04 10/13/18 47 Tonsillectomy completed Brenda Rogers MA [facility] 08/27/2021 09:30:10 [place] cultured skin graft completed Brenda Rogers MA [facility] 08/02/2016 10:28:42 Tonsillectomy completed Brenda Rogers MA [facility] 08/27/2021 09:30:10 Carpal tunnel surgery completed Mariano Shirley MD [address], [place], [address], [facility] 08/11/2018 11:08:25 Caesarean Section completed Cait reynoso MA [facility] 09/20/2019 09:22:45 Arthroscopic Surgery completed Brenda Rogers MA [facility] 08/02/2016 10:28:42 Other completed Mary Garza [facility] 06/01/2014 08:38:34 Joint Replacement completed Mairano Shirley MD [address] [facility] [address] [facility], [place], [address], [facility] 08/02/2016 11:05:34 Removal of ovary(s) completed Mariano Shirley MD [address] [address], [place], [address], [facility] 08/08/2017 12:00:11 Cholecystectomy completed Mariano Shirley MD [address] [facility] [address] [facility], [place], [address], [facility] 08/08/2017 12:00:37 primary repair of inguinal hernia completed Cait reynoso [facility] 09/20/2019 09:22:38 Hernia Repair completed Brenda Rogers [facility] 08/22/2020 09:30:08 Cataract Surgery completed Brenda Rogers [facility] 08/22/2020 09:30:08 Control Board Operator Surgery completed Brenda Rogers [facility] 08/22/2020 09:30:08 Hysterectomy completed Brenda Rogers [facility] 08/22/2020 09:30:08 Imaging Results None recorded. Procedure Notes None recorded. Medical Equipment None Reported. Allergies Allergen ID Allergen Name Allergen Category Reaction Reaction Severity Criticality Documentation Date Start Date Code Code System Note Provider Name and Address Organization Details Recorded Time 72031 docusate Not available Not available Not available Not available 01/25/2020 22206 RxNorm Not Available [facility] 3 08:53:16 26947 clarithro mycin medicatio n Not available Not available Not available 01/25/2020 24439 RxNorm EDUAR Soni [facility] 5 14:36:46 60274 oxycodone medicatio n itching Not available Not available 01/25/2020 7804 RxNorm Coleen shirley [facility] 0 10:26:50 23360 salsalate medicatio n anaphylax is Not available Not available 01/25/2020 34424 RxNorm Not Available [facility] 08:53:16 11639 codeine medicatio n itching Not available Not available 01/25/2020 2670 RxNorm Not Available [facility] 08:53:16 90560 quinine Not available Not available Not available Not available 01/25/2020 9071 RxNorm Mary Anne Kaur LPN [place], [facility] 4 09:33:04 05478 pentazoci ne Not available Not available Not available Not available 01/25/2020 8001 RxNorm Not Available [facility] 3 08:53:16 00459 adhesive tape environme nt,medica tion Not available Not available Not available 01/25/2020 Coleen shirley [facility] 0 10:29:01 4211 Biaxin medicatio n hives Not available Not available 04/26/20142013 19817 9 RxNorm Cait CATA Fry [facility] 6 08:34:11 4213 Disalcid medicatio n anaphylax is Not available Not available 04/26/20142013 48134 8 RxNorm CATA Chan [facility] 6 08:34:11 4215 quinine sulfate medicatio n vomiting Not available Not available 04/26/20142013 9075 RxNorm Cait CATA Fry [facility] 6 08:34:11 4216 Talwin medicatio n itching Not available Not available 04/26/20142013 8002 RxNorm Cait CATA Fry [facility] 6 08:34:11 34355 Augmentin medicatio n diarrhea mild Not available 06/30/2023 18200 2 RxNorm Not Available [facility] 3 08:53:16 11723 atorvasta tin medicatio n myalgias (muscle pain) mild low 10/09/2023 96836 RxNorm Mariano Shirley MD [address] [facility] [address] [address], [facility] 3 08:00:25 Medications Name Sig Start Date Stop Date Status Note LastModified by Organization Details LastModified Time Prescript ion - Clarifica tion 08/02 completed Not Available Not Available Not Available Prescript ion - Prior Authoriza tion Request 04/12 completed Not Available Not Available Not Available Miralax 17 gram oral powder packet Take 1 packet every day by oral route. 08/11 completed Not Available Not Available Not Available celecoxib 200 mg capsule TAKE 1 CAPSULE BY MOUTH EVERY DAY active Not Available Not Available No t Available Santyl 250 unit/gram topical ointment 1 1 by topical route. 01/19 completed Not Available Not Available Not Available cyclobenz aprine 10 mg tablet Take 1 tablet every day by oral route for 30 days. 03/27 completed Not Available Not Available Not Available amoxicill in 500 mg capsule TAKE 4 CAPSULES BY MOUTH 1 HR PRIOR TO DENTAL APPOINTM ENT active Not Available Not Available No t Available Miralax 17 gram/dose oral powder Take 17 g every day by oral route as needed. 01/15 completed Not Available Not Available Not Available methocarb nely 500 mg tablet Take 1 tablet every day by oral route as needed. 03/12 completed Not Available Not Available Not Available clotrimaz ole 10 mg hyacinth TAKE 1 TABLET 5 TIMES A DAY BY ORAL ROUTE FOR 14 DAYS. 09/09 completed Not Available Not Available Not Available silver sulfadiaz ine 1 % topical cream 10/27 completed Not Available Not Available Not Available terconazo le 0.4 % vaginal cream Insert 1 applicat orful every day by vaginal route for 7 days. 01/15 completed Not Available Not Available Not Available atorvasta tin 80 mg tablet Take 1 tablet every day by oral route. 10/24 completed myalgias Not Available Not Available Not Available nystatin 100,000 unit/mL oral suspensio n Take 5 mL 4 times a day by oral route for 14 days. 07/15 completed Not Available Not Available Not Available prednison e 10 mg tablet Take 3 tablets every day by oral route. 04/05 completed Not Available Not Available Not Available gabapenti n 600 mg tablet TAKE 1 TABLET BY MOUTH THREE TIMES A DAY 08/11 completed Not Available Not Available Not Available doxycycli ne hyclate 100 mg capsule TAKE 1 CAPSULE BY MOUTH TWICE A DAY FOR 7 DAYS 01/12 completed Not Available Not Available Not Available torsemide 20 mg tablet TAKE 2 TABLETS BY MOUTH EVERY DAY 04/05 completed Not Available Not Available Not Available albuterol sulfate 2.5 mg/3 mL (0.083 %) solution for nebulizat ion USE 1 VIAL VIA NEBULIZE R 3 TIMES A DAY NEEDED 02/21 completed Not Available Not Available Not Available ciproflox acin 750 mg tablet Take 2 tablets every day by oral route for 7 days. 08/11 completed Not Available Not Available Not Available trazodone 50 mg tablet Take 1 tablet every day by oral route as directed . 02/19 completed Not Available Not Available Not Available cetirizin e 10 mg tablet TAKE 1 TABLET BY MOUTH ONCE A DAY 05/13 completed Not Available Not Available Not Available azithromy fela 250 mg tablet TAKE 2 TABLETS BY MOUTH TODAY, THEN TAKE 1 TABLET DAILY FOR 4 DAYS DIRECTED 01/31 completed Not Available Not Available Not Available ofloxacin 0.3 % eye drops 08/17 completed Not Available Not Available Not Available tizanidin e 4 mg tablet Take 1 tablet every 8 hours by oral route for 10 days. 08/11 completed Not Available Not Available Not Available fluconazo le 150 mg tablet Take 1 tablet every 72 hours by oral route as directed for 2 days. 06/26 completed Not Available Not Available Not Available benzonata te 200 mg capsule TAKE 1 CAPSULE BY MOUTH THREE TIMES A DAY FOR COUGH FOR 7 DAYS 01/31 completed Not Available Not Available Not Available metoprolo l succinate ER 50 mg tablet,ex tended release 24 hr TAKE 1 TABLET BY MOUTH EVERY DAY active Not Available Not Available No t Available doxepin 25 mg capsule TAKE 1 CAPSULE BY MOUTH EVERY DAY AT BEDTIME FOR 30 DAYS active Not Available Not Available No t Available urea 20 % topical cream APPLY TO CALLOUS AREA ON BOTH FEET TWICE DAILY 07/25 completed Not Available Not Available Not Available meloxicam 15 mg tablet Take 1 tablet every day by oral route for 10 days. 05/27 completed Not Available Not Available Not Available ibuprofen 200 mg capsule Take 4 capsules as needed by oral route. active Not Available Not Available No t Available prednison e 20 mg tablet Take 2 tablets every day by oral route in the morning for 5 days. 02/12 completed Not Available Not Available Not Available fluoroura cil 5 % topical cream Apply 1 applicat ion every day by topical route for 30 days. 01/15 completed Not Available Not Available Not Available sennoside s 8.6 mg-docusa te sodium 50 mg tablet 2 tablets by oral route. 03/13 completed Not Available Not Available Not Available metoprolo l succinate ER 100 mg tablet,ex tended release 24 hr TAKE 1 TABLET BY MOUTH DAILY , HOLD IF SYSTOLIC BP BELOW 100 OR HR BEBLOW 55 05/10 completed Not Available Not Available Not Available gabapenti n 400 mg capsule 400 mg by oral route. 02/26 completed Not Available Not Available Not Available prednison e 5 mg tablet TAKE 8 TAB FOR 2 DAYS AND DECREASE BY 1 TAB EVERY OTHER DAY UNTIL COMPLETE 08/06 completed Not Available Not Available Not Available moxifloxa fela 400 mg tablet Take 1 tablet every day by oral route as needed for 10 days. 03/25 completed Not Available Not Available Not Available acetazola mide 250 mg tablet THREE TIMES DAILY 11/12 completed RECORDED 11/18/19 13 1:46PM BY MARIANO Mcdermott MD, MEDICATI ON AUTO-CHANCE CTIVATIO N; Not Available Not Available Not Available cyanocoba phi (vit B-12) 1,000 mcg tablet TAKE 1 TABLET BY MOUTH EVERY DAY active Not Available Not Available No t Available bacitraci n 500 unit/gram topical ointment Apply 1 applicat ion every 12 hours by topical route for 30 days. 10/16 completed Not Available Not Available Not Available meclizine 12.5 mg tablet Take 1 tablet 3 times a day by oral route as needed. 04/10 completed Not Available Not Available Not Available metronida zole 500 mg tablet Take 1 tablet every 6 hours by oral route for 10 days. 05/25 completed Not Available Not Available Not Available melatonin 3 mg tablet 05/02 completed Not Available Not Available Not Available clopidogr el 75 mg tablet TAKE 1 TABLET BY MOUTH EVERY DAY 2024 active Not Available Not Available Not Avai lable chlorthal idone 25 mg tablet Take 1 tablet every day by oral route for 90 days. 03/14 completed 01/22/23 ON HOLD PER CARDIO; restart furosemi de 20 mg bid x 1 week Not Available Not Available Not Available doxepin 10 mg capsule TAKE 1 CAPSULE BY MOUTH EVERYDAY AT BEDTIME active Not Available Not Available No t Available folic acid 400 mcg tablet Take 1 tablet every day by oral route. 06/28 completed Not Available Not Available Not Available morphine ER 30 mg tablet,ex tended release 03/13 completed Not Available Not Available Not Available sulfameth oxazole 800 mg-trimet hoprim 160 mg tablet Take 1 tablet every 12 hours by oral route for 7 days. 01/12 completed Not Available Not Available Not Available hydrocodo ne 10 mg-acetam inophen 325 mg tablet 09/28 completed Not Available Not Available Not Available omeprazol e 40 mg capsule,d elayed release Take 1 capsule every day by oral route as directed for 30 days. active Not Available Not Available No t Available doxycycli ne monohydra te 100 mg tablet Take 1 tablet twice a day by oral route for 10 days. 05/30 completed Not Available Not Available Not Available tramadol 50 mg tablet Take 1 tablet every day by oral route for 7 days. 02/19 completed Not Available Not Available Not Available acetamino phen 500 mg tablet Take 2 tablets twice a day by oral route as needed. 2017 active Not Available Not Available Not Avai lable spironola ctone 25 mg tablet TAKE 1 TABLET BY MOUTH EVERY DAY active Not Available Not Available No t Available amoxicill in 500 mg tablet Take 1 tablet 3 times a day by oral route as directed for 10 days. 01/13 completed Not Available Not Available Not Available simvastat in 40 mg tablet TAKE 1 TABLET BY MOUTH EVERY DAY 07/15 completed Not Available Not Available Not Available pantopraz ole 20 mg tablet,de layed release Take 1 tablet every day by oral route. 09/25 completed Not Available Not Available Not Available ketorolac 0.5 % eye drops 08/17 completed Not Available Not Available Not Available nortripty line 25 mg capsule TAKE 1 CAPSULE BY MOUTH EVERY DAY AT BEDTIME FOR 90 DAYS active Not Available Not Available No t Available cefadroxi l 500 mg capsule TAKE 1 CAPSULE BY MOUTH TWICE A DAY 07/01 completed Not Available Not Available Not Available terbinafi ne HCl 250 mg tablet TAKE ONE TABLET BY MOUTH DAILY. REPEAT LABS AFTER 6 WEEKS ON MEDICATI ON 07/12 completed Not Available Not Available Not Available calcium 600 mg (as calcium carbonate 1,500 mg) tablet active RECORDED 06/29/20 12 10:00AM BY BRENDA ROGERS MA, ANNOTATI ON/ADDEN DUM; Not Available Not Available Not Available hydromorp j carlos 2 mg tablet TAKE 1 TABLET BY MOUTH EVERY 4 HOURS NEEDED FOR SEVERE POSTOPER ATIVE PAIN 09/28 completed Not Available Not Available Not Available famotidin e 20 mg tablet Take 1 tablet twice a day by oral route for 14 days. 05/27 completed Not Available Not Available Not Available amitripty line 25 mg tablet 04/05 completed Not Available Not Available Not Available prednisol one acetate 1 % eye drops,soto coxon 08/17 completed Not Available Not Available Not Available omeprazol e 10 mg capsule,d elayed release DAILY active RECORDED 06/29/20 12 9:52AM BY BRENDA ROGERS MA, ZIA ON/ADDEN DUM; Not Available Not Available Not Available lorazepam 0.5 mg tablet 0.5 mg by oral route. 04/02 completed Not Available Not Available Not Available calcium 500 mg (as calcium carbonate 1,250 mg) tablet Take 1 tablet every day by oral route. 07/12 completed Not Available Not Available Not Available dicyclomi ne 20 mg tablet Take 1 tablet every 6 hours by oral route for 7 days. 08/11 completed Not Available Not Available Not Available amitripty line 10 mg tablet Take 3 tablets every day by oral route. 04/05 completed Not Available Not Available Not Available baclofen 10 mg tablet 05/02 completed Not Available Not Available Not Available benzonata te 100 mg capsule Take 2 capsules 3 times a day by oral route as needed for 20 days. 11/01 completed Not Available Not Available Not Available doxycycli ne monohydra te 100 mg capsule TAKE 1 CAPSULE BY MOUTH 2 TIMES A DAY FOR 14 DAYS. 03/28 completed Not Available Not Available Not Available econazole nitrate 1 % topical cream Apply 1 applicat ion every day by topical route for 10 days. 07/01 completed PRN Not Available Not Available Not Available cephalexi n 500 mg capsule TAKE 1 CAPSULE BY MOUTH 4 TIMES A DAY FOR 10 DAYS. 01/31 completed Not Available Not Available Not Available pantopraz ole 40 mg tablet,de layed release TAKE 1 TABLET BY MOUTH TWICE A DAY active Not Available Not Available No t Available erythromy fela 5 mg/gram (0.5 %) eye ointment APPLY 1 CM RIBBON INTO THE LOWER CONJUNCT IVAL SAC(S) IN THE AFFECTED EYE(S) BY OPHTHALM IC ROUTE 3 TIMES PER DAY 01/15 completed Not Available Not Available Not Available trazodone 150 mg tablet Take 1 tablet every day by oral route for 90 days. 08/23 completed Not Available Not Available Not Available ferrous sulfate 325 mg (65 mg iron) tablet TAKE 1 TABLET BY MOUTH EVERY DAY 10/22 completed Not Available Not Available Not Available Cipro 500 mg tablet Take 1 tablet every 12 hours by oral route for 10 days. 10/14 completed Not Available Not Available Not Available clotrimaz ole-betam ethasone 1 %-0.05 % topical cream APPLY TO THE AFFECTED AND SURROUND ING AREAS OF SKIN BY TOPICAL ROUTE 2 TIMES PER DAY IN THE MORNING AND EVENING FOR 2 WEEKS 2024 active Not Available Not Available Not Avai lable prednison e 50 mg tablet Take 1 tablet every day by oral route for 5 days. 2014 active Not Available Not Available Not Avai lable lidocaine 5 % topical patch TWO TIMES DAILY, NEEDED active Not Available Not Available No t Available metronida zole 0.75 % topical cream Apply 1 applicat ion twice a day by topical route for 30 days. 01/15 completed Not Available Not Available Not Available orphenadr ine citrate ER 100 mg tablet,ex tended release TAKE 1 TABLET TWICE A DAY NEEDED 05/21 completed Not Available Not Available Not Available cefadroxi l 1 gram tablet Take 1 tablet twice a day by oral route for 7 days. 06/08 completed Not Available Not Available Not Available nitroglyc venkatesh 0.4 mg sublingua l tablet 07/12 completed Not Available Not Available Not Available trazodone 300 mg tablet AT BEDTIME 04/19 completed RECORDED 05/25/20 13 12:00PM BY IMTIAZ ELDER MD, MEDICATI ON AUTO-CHANCE CTIVATIO N; Not Available Not Available Not Available docusate sodium 100 mg capsule Take 1 capsule twice a day by oral route. 03/12 completed Not Available Not Available Not Available oxybutyni n chloride ER 5 mg tablet,ex tended release 24 hr Take 1 tablet every day by oral route. 10/14 completed Not Available Not Available Not Available gabapenti n 300 mg capsule Take 1 capsule every day by oral route. 04/02 completed Not Available Not Available Not Available Senna Laxative 8.6 mg tablet Take 2 tablets every day by oral route at bedtime. 01/15 completed Not Available Not Available Not Available omeprazol e 20 mg capsule,d elayed release TAKE 1 CAPSULE BY MOUTH EVERY DAY DIRECTED active Not Available Not Available No t Available folic acid 1 mg tablet 05/02 completed Not Available Not Available Not Available monteluka st 10 mg tablet TAKE 1 TABLET BY MOUTH EVERY DAY IN THE EVENING active Not Available Not Available No t Available morphine ER 15 mg tablet,ex tended release Take 1 tablet every day by oral route for 7 days. 03/12 completed Not Available Not Available Not Available codeine 10 mg-guaife nesin 100 mg/5 mL oral liquid TAKE 5 ML BY MOUTH AT BEDTIME NEEDED 01/23 completed Not Available Not Available Not Available mometason e 0.1 % topical ointment APPLY ONCE DAILY TO AFFECTED AREA ON ARM 06/30 completed Not Available Not Available Not Available digoxin 125 mcg (0.125 mg) tablet 1 TABLET BY MOUTH EVERY OTHER DAY,X90 DAYS active Not Available Not Available No t Available zolpidem 5 mg tablet TAKE ONE TABLET BY MOUTH EVERY DAY NEEDED 2024 active Not Available Not Available Not Avai lable furosemid e 20 mg tablet TAKE 3 TABLETS BY MOUTH EVERY DAY active Not Available Not Available No t Available gabapenti n 100 mg capsule TAKE 1 CAPSULE BY MOUTH EVERY DAY 05/27 completed Not Available Not Available Not Available lorazepam 1 mg tablet 04/02 completed Not Available Not Available Not Available azelastin e 137 mcg (0.1 %) nasal spray INHALE 1 SPRAYS EACH NOSTRIL TWICE DAILY 04/05 completed Not Available Not Available Not Available epinephri ne 0.3 mg/0.3 mL injection , auto-inje ctor Take 1 auto as needed by injectio n route for 2 days. active Not Available Not Available No t Available cefuroxim e axetil 500 mg tablet Take by oral route for 7 days. 10/27 completed Not Available Not Available Not Available levofloxa fela 500 mg tablet TAKE 1 TABLET BY MOUTH EVERY DAY 07/02 completed Not Available Not Available Not Available estradiol 0.01% (0.1 mg/gram) vaginal cream Insert 1 applicat orful by vaginal route for 30 days. 2024 active Not Available Not Available Not Avai lable levofloxa fela 750 mg tablet Take 1 tablet every day by oral route. 02/23 completed chaged to bactrim Not Available Not Available Not Available zolpidem 10 mg tablet Take 1 tablet every day by oral route. 08/22 completed Not Available Not Available Not Available methylpre dnisolone 4 mg tablets in a dose pack TAKE 6 TABLETS ON DAY 1 DIRECTED ON PACKAGE AND DECREASE BY 1 TAB EACH DAY FOR A TOTAL OF 6 DAYS 01/31 completed Not Available Not Available Not Available albuterol sulfate HFA 90 mcg/actua tion aerosol inhaler TAKE 2 PUFFS BY MOUTH EVERY 4 TO 6 HOURS NEEDED active Not Available Not Available No t Available celecoxib 100 mg capsule TAKE 1 CAPSULE EVERY DAY BY ORAL ROUTE NEEDED FOR 14 DAYS. 04/01 completed Not Available Not Available Not Available hydrocort isone 2.5 % topical ointment APPLY TO AFFECTED AREA ON LEG ONCE DAILY 09/26 completed Not Available Not Available Not Available ketoconaz ole 2 % topical cream APPLY TO RASH ON FEET TWICE DAILY CHRONICA LLY. USE TWICE DAILY X2 WEEKS FOR RASH IN SKIN FOLDS. active Not Available Not Available No t Available hydromorp j carlos 4 mg tablet Take 0.5 tablets every 6 hours by oral route as needed for 30 days, for foot and chronic back pain. 2024 active Not Available Not Available Not Avai lable morphine 15 mg immediate release tablet Take 1 tablet every day by oral route. 12/10 completed Not Available Not Available Not Available brompheni ramine-ps eudoephed rine-DM 2 mg-30 mg-10 mg/5 mL oral syrup TAKE 2 TEASPOON SFUL( 10MLS) BY MOUTH EVERY 6 HOURS NEEDED FOR COUGH 05/02 completed Not Available Not Available Not Available ondansetr on 4 mg disintegr ating tablet 09/21 completed Not Available Not Available Not Available fluticaso ne propionat e 50 mcg/actua tion nasal spray,soto pension SPRAY 1 - 2 SPRAY BY INTRANAS AL ROUTE EVERY DAY IN EACH NOSTRIL NEEDED active Not Available Not Available No t Available betametha sone dipropion ate 0.05 % lotion APPLY TO SCALP 1-2 TIMES DAILY NEEDED active Not Available Not Available No t Available doxycycli ne hyclate 100 mg tablet TAKE 1 TABLET BY MOUTH EVERY 12 HOURS FOR 10 DAYS 01/31 completed Not Available Not Available Not Available loratadin e 10 mg tablet Take 1 tablet every day by oral route. 08/22 completed Not Available Not Available Not Available naproxen 500 mg tablet TAKE 1 TABLET BY MOUTH EVERY 12 HOURS WITH FOOD OR MILK NEEDED FOR 30 DAYS active Not Available Not Available No t Available diazepam 5 mg tablet 07/27 completed Not Available Not Available Not Available amoxicill in 875 mg-potass ium clavulana te 125 mg tablet Take 1 tablet every 12 hours by oral route for 7 days. 03/27 completed Not Available Not Available Not Available Vitamin B1 (Thiamine ) 100 mg tablet Take 1 tablet every day by oral route. 01/13 completed Not Available Not Available Not Available ciclopiro x 0.77 % topical cream 03/27 completed Not Available Not Available Not Available Calcium 500 + D 500 mg-5 mcg (200 unit) tablet Take 1 tablet every day by oral route. 08/17 completed Not Available Not Available Not Available ezetimibe 10 mg tablet TAKE 1 TABLET BY MOUTH EVERY DAY active Not Available Not Available No t Available Vitamin D3 25 mcg (1,000 unit) tablet TAKE 1 TABLET BY MOUTH EVERY DAY active Not Available Not Available No t Available Vitamin D3 25 mcg (1,000 unit) capsule Take 1 capsule every day by oral route. 05/02 completed Not Available Not Available Not Available cyclobenz aprine 5 mg tablet Take 1 tablet every day by oral route for 19 days. 05/25 completed Not Available Not Available Not Available oxymetazo line 0.05 % nasal drops AT BEDTIME 12/05 completed RECORDED 12/31/19 13 9:52AM BY MARIANO Mcdermott MD, MEDICATI ON AUTO-CHANCE CTIVATIO N; Not Available Not Available Not Available rosuvasta tin 20 mg tablet TAKE 1 TABLET BY MOUTH EVERY DAY 2024 active Not Available Not Available Not Avai lable ketorolac 0.4 % eye drops 1 [drp] by ophthalm ic route. 02/26 completed Not Available Not Available Not Available Klor-Con M10 mEq tablet,ex tended release TAKE 1 TABLET BY MOUTH EVERY DAY 04/20 completed Not Available Not Available Not Available Readi-Cat 2 2.1 % (w/v), 2.0 % (w/w) oral suspensio n Take 450 mL twice a day by oral route as directed for 1 day. 11/26 completed Not Available Not Available Not Available senna 8.6 mg capsule Take 2 capsules every day by oral route at bedtime. 01/19 completed Not Available Not Available Not Available duloxetin e 30 mg capsule,d elayed release Take 1 capsule every day by oral route. 10/14 completed Not Available Not Available Not Available duloxetin e 60 mg capsule,d elayed release Take 1 capsule twice a day by oral route for 90 days. 08/08 completed Not Available Not Available Not Available lactulose 10 gram/15 mL oral solution 03/13 completed Not Available Not Available Not Available Gammagard Liquid 10 % injection solution Take 25 mL every 3 weeks by injectio n route for 21 days. 01/15 completed Not Available Not Available Not Available Flonase 1 1. 04/12 completed Not Available Not Available Not Available magnesium carbonate active RECORDED 06/29/20 12 10:00AM BY BRENDA ROGERS MA, ANNOTATI ON/ADDEN DUM; Not Available Not Available Not Available orphenadr ine citrate 07/01 completed RECORDED 07/01/20 13 9:54AM BY BRENDA ROGERS MA, OFFICE VISIT; Not Available Not Available Not Available azelastin e active RECORDED 06/29/20 12 9:53AM BY BRENDA ROGERS MA, ANNOTATI ON/ADDEN DUM; Not Available Not Available Not Available Prilosec 20 mg. 05/02 completed Not Available Not Available Not Available Miralax 05/02 completed Not Available Not Available Not Available Glucosami ne Complex DAILY active RECORDED 07/01/20 13 10:32AM BY MARIANO Mcdermott MD, ANNOTATI ON/ADDEN DUM; Not Available Not Available Not Available Gammagard dosage as ordered, by Intraven ous route, EVERY 3 WEEKS 03/23 completed Not Available Not Available Not Available Saline Nasal FOUR TIMES DAILY 12/05 completed RECORDED 12/31/19 13 9:52AM BY MARIANO Mcdermott MD, MEDICATI ON AUTO-CHANCE CTIVATIO N; Not Available Not Available Not Available artificia l tears (dext 40-hpm) one drop both eyes as needed 2017 active Not Available Not Available Not Avai lable Mucinex DM TWO TIMES DAILY 2013 active RECORDED 01/01/20 14 11:06AM BY ANKIT MASSEY I, OFFICE VISIT; Not Available Not Available Not Available hydrocodo ne 5 mg-acetam inophen 300 mg tablet Take 1 tablet 4 times a day by oral route as needed for 5 days. 01/15 completed Not Available Not Available Not Available Symbicort 160 mcg-4.5 mcg/actua tion HFA aerosol inhaler TAKE 2 PUFFS BY MOUTH TWICE A DAY IN THE MORNING AND IN THE EVENING IN THE MORNING AND EVENING 04/05 completed Not Available Not Available Not Available Symbicort 80 mcg-4.5 mcg/actua tion HFA aerosol inhaler Inhale 2 inhalati ons twice a day by inhalati on route for 90 days. 07/27 completed Not Available Not Available Not Available peg 3350-elec trolytes 236 gram-22.7 4 gram-6.74 gram-5.86 gram solution 10/14 completed Not Available Not Available Not Available Mucinex 1,200 mg tablet, extended release Take 1 tablet every 12 hours by oral route as needed for 10 days. 07/12 completed Not Available Not Available Not Available diclofena c 1 % topical gel APPLY SMALL AMOUNT TO AREA 3 TIMES A DAY NEEDED FOR PAIN active Not Available Not Available No t Available Fiber (dextrin) 3 gram/3.5 gram oral powder Take 7 g every day by oral route. 02/26 completed Not Available Not Available Not Available magnesium glycinate one tablet by mouth daily 11/01 completed Unknown strength Not Available Not Available Not Available Calmosept ine 0.44 %-20.6 % topical ointment Apply 1 applicat ion every day by topical route. 07/25 completed Not Available Not Available Not Available Hizentra 2 gram/10 mL (20 %) subcutane ous solution 05/10 completed Not Available Not Available Not Available Hizentra 4 gram/20 mL (20 %) subcutane ous solution Inject 20 mL every week by sub-q route for 28 days. 05/10 completed Not Available Not Available Not Available Probiotic 10 billion cell capsule Take 1 capsule every day by oral route. 11/01 completed Not Available Not Available Not Available B3-azelai c acid-zinc -B6-coppe r-FA 600 mg-5 mg-10 mg-5 mg-1.5 mg tablet Take 1 tablet by oral route. 05/02 completed Not Available Not Available Not Available Eliquis 5 mg tablet TAKE 1 TABLET BY MOUTH TWICE A DAY active Not Available Not Available No t Available Breo Ellipta 100 mcg-25 mcg/dose powder for inhalatio n INHALE 1 PUFF BY MOUTH 1 (ONE) TIME EACH DAY. active Not Available Not Available No t Available Hizentra 10 gram/50 mL (20 %) subcutane ous solution Inject 10 mL every week by subcutan eous route. active Not Available Not Available No t Available potassium chloride ER 20 mEq tablet,ex tended release TAKE 1 TABLET BY MOUTH EVERY DAY 08/25 completed ON HOLD Not Available Not Available Not Available Jardiance 10 mg tablet TAKE 1 TABLET BY MOUTH EVERY DAY IN THE MORNING active Not Available Not Available No t Available Incruse Ellipta 62.5 mcg/actua tion powder for inhalatio n INHALE 1 PUFF BY INHALATI ON ROUTE EVERY DAY AT THE SAME TIME EACH DAY active Not Available Not Available No t Available Spiriva Respimat 1.25 mcg/actua tion solution for inhalatio n Inhale 2 puffs every day by inhalati on route. 01/19 completed Not Available Not Available Not Available Nasal Allergy 55 mcg spray aerosol INSTILL 1 SPRAY TO EACH NOSTRIL TWICE A DAY 09/26 completed Not Available Not Available Not Available Narcan 4 mg/actuat ion nasal spray 05/02 completed Not Available Not Available Not Available Shingrix (PF) 50 mcg/0.5 mL intramusc ular suspensio n, kit 03/23 completed Not Available Not Available Not Available Hizentra 2 gram/10 mL (20 %) subcutane ous syringe Inject 10 mL every week by sub-q route as directed for 28 days. active Not Available Not Available No t Available Evusheld (EUA) 150 mg/1.5 mL-150 mg/1.5 mL intramusc ular solution Inject 1.5 mL as needed by intramus cular route. 04/01 completed every 6 months Not Available Not Available Not Available Paxlovid 300 mg (150 mg x 2)-100 mg tablets in a dose pack TAKE BY ORAL ROUTE 2 TIMES PER DAY PER PACKAGE DIRECTIO NS FOR 5 DAYS 04/02 completed Not Available Not Available Not Available Hizentra 10 gram/50 mL (20 %) subcutane ous syringe Inject 50 mL every week by sub-q route as directed for 28 days. 07/01 completed Not Available Not Available Not Available Vitals Date Recorded Body height Body mass index (BMI) Body weight Heart rate Oxygen saturation Oxygen saturation in Arterial blood by Pulse oximetry Body temperature Systolic blood pressure Provider Name and Address Organization Details Last Updated DateTime 167.64 cm 29.2 kg/m2 44936.9 2 g 89 /min 98 % 98 % 97.9 [degF] 123 mm[Hg] Mary Anne Kaur LPN [facility] 14:36:31 Date Recorded Heart rate Systolic And Diastolic Provider Name and Address Organization Details Last Updated DateTime 03/30/2025 54 /min 113/72 mm[Hg] Not Available [facility] 03/30/2025 09:44:37 Date Recorded Heart rate Systolic And Diastolic Provider Name and Address Organization Details Last Updated DateTime 04/02/2025 82 /min 129/66 mm[Hg] Not Available [facility] 04/02/2025 09:09:36 Date Recorded Heart rate Systolic And Diastolic Provider Name and Address Organization Details Last Updated DateTime 04/08/2025 75 /min 127/57 mm[Hg] Not Available [facility] 04/08/2025 08:48:39 Date Recorded Heart rate Systolic And Diastolic Provider Name and Address Organization Details Last Updated DateTime 04/10/2025 79 /min 126/51 mm[Hg] Not Available [facility] 04/10/2025 09:12:35 Date Recorded Heart rate Systolic And Diastolic Provider Name and Address Organization Details Last Updated DateTime 04/17/2025 80 /min 146/70 mm[Hg] Not Available [facility] 04/17/2025 09:18:38 Date Recorded Body height Body mass index (BMI) Body weight Heart rate Oxygen saturation Oxygen saturation in Arterial blood by Pulse oximetry Body temperature Systolic And Diastolic Systolic And Diastolic Provider Name and Address Organization Details Last Updated DateTime 167.64 cm 27.1 kg/m2 90830.5 2 g 79 /min 99 % 99 % 98 [degF] 150/74 mm[Hg] 130/80 mm[Hg] Dionna Martinez MA [facility] 11:03:31 Date Recorded Heart rate Systolic And Diastolic Provider Name and Address Organization Details Last Updated DateTime 04/19/2025 64 /min 124/81 mm[Hg] Not Available [facility] 04/19/2025 09:35:44 Date Recorded Heart rate Systolic And Diastolic Provider Name and Address Organization Details Last Updated DateTime 04/20/2025 80 /min 126/55 mm[Hg] Not Available [facility] 04/20/2025 09:35:36 Date Recorded Heart rate Systolic And Diastolic Provider Name and Address Organization Details Last Updated DateTime 04/21/2025 74 /min 145/57 mm[Hg] Not Available [facility] 04/21/2025 09:21:39 Date Recorded Heart rate Systolic And Diastolic Provider Name and Address Organization Details Last Updated DateTime 04/22/2025 87 /min 131/86 mm[Hg] Not Available [facility] 04/22/2025 09:00:35 Date Recorded Heart rate Systolic And Diastolic Provider Name and Address Organization Details Last Updated DateTime 04/23/2025 79 /min 129/61 mm[Hg] Not Available [facility] 04/23/2025 09:34:41 Date Recorded Heart rate Heart rate Systolic And Diastolic Systolic And Diastolic Provider Name and Address Organization Details Last Updated DateTime 04/26/2025 83 /min 60 /min 147/70 mm[Hg] 109/57 mm[Hg] Not Available [facility] 04/27/2025 09:17:36 Date Recorded Heart rate Systolic And Diastolic Provider Name and Address Organization Details Last Updated DateTime 04/27/2025 83 /min 144/99 mm[Hg] Not Available [facility] 04/27/2025 09:17:37 Date Recorded Heart rate Systolic And Diastolic Provider Name and Address Organization Details Last Updated DateTime 04/28/2025 70 /min 124/60 mm[Hg] Not Available [facility] 04/28/2025 09:03:38 Date Recorded Heart rate Systolic And Diastolic Provider Name and Address Organization Details Last Updated DateTime 04/30/2025 55 /min 131/66 mm[Hg] Not Available [facility] 04/30/2025 10:02:34 Date Recorded Heart rate Systolic And Diastolic Provider Name and Address Organization Details Last Updated DateTime 05/02/2025 73 /min 122/69 mm[Hg] Not Available [facility] 05/02/2025 08:29:36 Date Recorded Heart rate Systolic And Diastolic Provider Name and Address Organization Details Last Updated DateTime 05/03/2025 75 /min 158/59 mm[Hg] Not Available [facility] 05/03/2025 08:41:34 Date Recorded Heart rate Systolic And Diastolic Provider Name and Address Organization Details Last Updated DateTime 05/08/2025 75 /min 131/67 mm[Hg] Not Available [facility] 05/08/2025 14:17:30 Date Recorded Heart rate Systolic And Diastolic Provider Name and Address Organization Details Last Updated DateTime 05/09/2025 55 /min 122/61 mm[Hg] Not Available [facility] 05/09/2025 09:44:27 Date Recorded Body height Provider Name an d Address Organization Details Last Updated DateTime 05/13/2025 167.64 cm Demi Pastor MA [facility] 05/13/2025 13:10:41 Date Recorded Heart rate Systolic And Diastolic Provider Name and Address Organization Details Last Updated DateTime 05/15/2025 84 /min 132/58 mm[Hg] Not Available [facility] 05/15/2025 13:16:26 Date Recorded Heart rate Systolic And Diastolic Provider Name and Address Organization Details Last Updated DateTime 05/21/2025 90 /min 143/81 mm[Hg] Not Available [facility] 05/21/2025 12:03:29 Date Recorded Heart rate Systolic And Diastolic Provider Name and Address Organization Details Last Updated DateTime 05/27/2025 81 /min 129/71 mm[Hg] Not Available [facility] 05/27/2025 11:42:29 Date Recorded Heart rate Systolic And Diastolic Provider Name and Address Organization Details Last Updated DateTime 06/01/2025 91 /min 124/56 mm[Hg] Not Available [facility] 06/01/2025 21:25:26 Date Recorded Heart rate Systolic And Diastolic Provider Name and Address Organization Details Last Updated DateTime 06/06/2025 83 /min 126/57 mm[Hg] Not Available [facility] 06/06/2025 14:07:30 Date Recorded Body height Body mass index (BMI) Body weight Heart rate Oxygen saturation Oxygen saturation in Arterial blood by Pulse oximetry Body temperature Systolic And Diastolic Provider Name and Address Organization Details Last Updated DateTime 167.64 cm 27.3 kg/m2 16137.1 1 g 84 /min 98 % 98 % 97.9 [degF] 116/69 mm[Hg] Cait rivera [facility] 13:30:49 Date Recorded Heart rate Systolic And Diastolic Provider Name and Address Organization Details Last Updated DateTime 06/25/2025 90 /min 139/67 mm[Hg] Not Available [facility] 06/25/2025 13:37:30 Date Recorded Body height Provider Name an d Address Organization Details Last Updated DateTime 07/01/2025 167.64 cm Demi Pastor MA [facility] 07/01/2025 14:53:10 Date Recorded Heart rate Systolic And Diastolic Provider Name and Address Organization Details Last Updated DateTime 07/08/2025 86 /min 124/67 mm[Hg] Not Available [facility] 07/08/2025 13:18:27 Date Recorded Heart rate Systolic And Diastolic Provider Name and Address Organization Details Last Updated DateTime 07/17/2025 92 /min 116/64 mm[Hg] Not Available [facility] 07/17/2025 17:32:29 Date Recorded Heart rate Systolic And Diastolic Provider Name and Address Organization Details Last Updated DateTime 07/18/2025 87 /min 122/65 mm[Hg] Not Available [facility] 07/18/2025 14:39:26 Date Recorded Heart rate Systolic And Diastolic Provider Name and Address Organization Details Last Updated DateTime 07/21/2025 75 /min 139/56 mm[Hg] Not Available [facility] 07/21/2025 21:20:26 Social History Question Answer Notes LastModified by Organizat ion Details LastModified Time Tobacco Smoking Status Former [facility]oker quit 1976 Not Available [facility] 08/15/2020 03:36:38 Do You Have An Advance Directive? Yes HCP/ -Phi l, Dtr-Nilda gipson Information not available 09/09/2022 Is Blood Transfusion Acceptable In An Emergency? Yes [id number] Information not available 08/15/2020 What Is Your Level Of Caffeine Consumption? Moderate Tea Daily [id number] Information not available 08/15/2020 How Much Tobacco Do You Chew? None [id number] Information not available 08/15/2020 What Type Of Diet Are You Following? REGULAR [id number] Information not available 08/15/2020 Which Illicit Or Recreational Drugs Have You Used? None [id number] Information not available 08/15/2020 When Did You Quit Smoking? 16+yearssinc elastcigaret te [id number] Information not available 08/31/2020 Live Alone Or With Others? With Others (Martin), Son, His Girlfriend, 2 Grand Kids/2 Cats [email or web address] Information not available 09/28/2024 Do You Take Precautions To Prevent Distracted Driving? Yes Information not available 07/31/2015 How Often Do You Need To Have Someone Help You When You Read Instructions, Pamphlets, Or Other Written Material From Your Doctor Or Pharmacy? Never Information not available 07/31/2015 Have You Served In The ? Yes Spouse Information not available 08/02/2016 Have You Or Anyone In Your Household Had Any Of The Following Symptoms In The Last 14 Days: Sore Throat, Cough, Chills, Body Aches For Unknown Reasons, Shortness Of Breath For Unknown Reasons, Loss Of Smell, Loss Of Taste, Fever At Or Greater Than 100 Degrees Fahrenheit? No Information not available 05/02/2020 Are You Or Anyone In Your Household A Health Care Provider Or Emergency Responder? No Information not available 05/02/2020 To The Best Of Your Knowledge Have You Been In Close Proximity To Any Individual Who Tested Positive For COVID-19? No Information not available 05/02/2020 *AWV ONLY* Are You Presently Prescribed Opioid Medication By PCP Or Specialist? If YES -Provider Assess The Benefit For Other, Non-opioid Pain Therapies Instead, Even If The Patient Does Not Have OUD But Is Possibly At Risk. No Information not available 08/22/2020 Have You Recently Traveled To A COVID-19 High Risk Area Or Gathering In The Last 10 Days? No Information not available 10/27/2020 What Was The Date Of Your Most Recent Tobacco Screening? 05/13/2025 [id number] Information not available 05/13/2025 How Many Children Do You Have? 5 4 Dtrs, 1 Son [id number] Information not available 08/15/2020 What Is Your Current Pack Years? 30ormorepack years Information not available 09/09/2022 Do You Use Your Seat Belt Or Car Seat Routinely? Yes Information not available 08/27/2021 Seat Belts Used Routinely Yes Information not available 09/09/2022 Are You Sexually Active? No [id number] Information not available 08/15/2020 Smoke Alarm In Home Yes Information not available 09/09/2022 Do You Have Smoke And Carbon Monoxide Detectors In Your Home? Yes Information not available 08/27/2021 At What Age Did You Start Smoking Tobacco? 15 [id number] Information not available 08/15/2020 Are You Passively Exposed To Smoke? Yes Information not available 08/27/2021 How Much Tobacco Do You Smoke? 3+ PPD Information not available 09/09/2022 Do You Use Sunscreen Routinely? No [id number] Information not available 08/15/2020 How Many Years Have You Smoked Tobacco? 16 Information not available 08/22/2020 Sex: Unknown Functional Status Question Answer Note LastModified by Organizat ion Details LastModified Time Do you use any illicit or recreational drugs? No Information not available 09/09/2022 Do you or have you ever used any other forms of tobacco or nicotine? No Information not available 09/09/2022 What is your level of alcohol consumption? Moderate Information not available 09/28/2024 Do you or have you ever used smokeless tobacco? Never used smokeless tobacco [email or web address] Information not available 08/31/2020 Are you currently employed? No retired [id number] Information not available 08/15/2020 Are you able to walk independently without assistance or assistive devices? YESASSIST Information not available 09/28/2024 Are you able to care for yourself independently? 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 Never used electronic cigarettes Information not available 09/09/2022 What is your exercise level? None Information not available 09/09/2022 Mental Status None recorded. Family History Relationship Description Onset Age of this Age Resolved Age Notes LastModified by Organization Details LastModified Time Sister Cerebrovascu lar accident abolcun Not available 10:27:59 Sister Heart disease [email or web address] Not available 08/02 11:00:13 Sister Hypercholest erolemia abolcun Not available 2016 11:18:29 Sister Anxiety disorder abolcun Not available 2019 09:29:43 Maternal Grandmother Malignant neoplasm of colon abolcun Not available 2015 09:42:15 Maternal Grandmother Hypercholest erolemia [email or web address] Not available 08:13:07 Father Hypercholest erolemia abolcun Not available 2015 10:27:59 Father Coronary arterioscler osis [email or web address] Not available 08:55:42 Father Arthritis abolcun Not available 08/08/2017 11:18:29 Father Asthma abolcun Not available 11:18:30 Father Heart disease [email or web address] Not available 08:55:42 Brother Hypercholest erolemia abolcun Not available 2015 09:42:15 Brother Heart disease [email or web address] Not available 08:55:42 Son Hypercholest erolemia [email or web address] Not available 08:13:07 Son Harmful pattern of use of alcohol abolcun Not available 2020 09:30:00 Son Liver problem [email or web address] Not available 08:55:42 Son Kidney disease [email or web address] Not available 08:55:42 Mother Memory impairment [email or web address] Not available 11/09/2021 08:55:42 Mother Conduction disorder of the heart [email or web address] Not available 08:55:42 Mother Dementia abolcun Not available 08/22/2020 09:29:44 Unspecified Relation Immunodefici ency disorder [email or web address] Not available 08:55:42 Unspecified Relation Attention deficit hyperactivit y disorder [email or web address] Not available 1 11/09/2021 08:55:42 Medical History Condition Response Other Y Gout N Kidney Stones N Blood Diseases N Hyperthyroidism N Breast Cancer N Depression N COPD Y Lung Disease N Hypothyroidism Y Defects or Inherited Disease N Anesthesia Complications N Headaches/Migraines N Varicose Veins Y Anxiety Disorder Y Obesity Y Vision or Eye Problems N Arthritis Y Head Injury/Concussion N Polyps N Infertility N Congenital Anomalies N Acid Reflux (GERD) Y Cancer N Stroke Y ADHD N Endometriosis N High Cholesterol Y Liver Disease N Headaches Y Fibromyalgia Y Kidney Disease N Heart Problems Y Ear or Hearing Problems N Hospitalizations Y Thyroid Problems N GI Problems Y Acne N Skin Problems Y Eating Disorder N Anemia N Constipation N Bladder Problems Y Mental Illness N Ovarian Cancer N Diabetes N Blood Transfusions Y Seizures/Epilepsy N Tuberculosis N AIDS/HIV N Congestive Heart Failure (CHF) N Eczema N Diverticulitis N Abuse/Domestic Violence N Asthma Y Allergies Y Reflux/GERD Y Hepatitis N Pulmonary Embolism N Hypertension Y Chicken Pox Y Autism Spectrum Disorder (ASD) N Osteoporosis N Gynecological History Statement/Question Response Date of Last Pap Smear Most Recent Mammogram 06/14/2025 08/05/2013 Date of Last Colonoscopy 08/26/2018 Most Recent Bone Density 09/24/2018 01/28/2004 Obstetrics History GPAL:G 0 P 0 0 0 0 Immunizations Vaccine Type Date Status Note Provider Nam e and Address Organization Details Recorded Time Influenza, split virus, quadrivalent, preservative 5 completed Sveta shirley [facility] 10/03/2023 09:05:35 COVID-19, mRNA, LNP-S, PF, 30 mcg/0.3 mL dose 1 completed Sveta shirley [facility] 10/03/2023 09:05:35 COVID-19, mRNA, LNP-S, PF, 30 mcg/0.3 mL dose 1 completed Sveta Benavides null, [facility] 10/03/2023 09:05:35 zoster recombinant 8 completed Sveta Benavides null, [facility] 10/03/2023 09:05:35 COVID-19, mRNA, LNP-S, PF, 30 mcg/0.3 mL dose 2 completed Sveta Benavides null, [facility] 10/03/2023 09:05:35 Pneumococcal conjugate PCV 13 4 completed Sveta Benavides null, [facility] 10/03/2023 09:05:35 Influenza, high-dose, quadrivalent, PF 0 completed Svetatomas Benavides null, [facility] 10/03/2023 09:05:35 Influenza, split virus, trivalent, PF 4 completed Sveta Benavides null, [facility] 10/03/2023 09:05:35 pneumococcal polysaccharide PPV23 9 completed Sveta Benavides null, [facility] 10/03/2023 09:05:35 pneumococcal polysaccharide PPV23 2 completed Sveta Benavides null, [facility] 10/03/2023 09:05:35 Influenza, high-dose, trivalent, PF 7 completed Sveta Benavides null, [facility] 10/03/2023 09:05:35 Influenza, high-dose, trivalent, PF 6 completed Sveta Benavides null, [facility] 10/03/2023 09:05:35 Influenza, high-dose, trivalent, PF 8 completed Sveta Benavides null, [facility] 10/03/2023 09:05:35 Influenza, high-dose, quadrivalent, PF 1 completed Svetatomas Hannanett null, [facility] 10/03/2023 09:05:35 Td (adult), 2 Lf tetanus toxoid, preservative free, adsorbed 0 completed Sveta Benavides null, [facility] 10/03/2023 09:05:35 Influenza, high-dose, trivalent, PF 9 completed Sveta Benavides null, [facility] 10/03/2023 09:05:35 zoster recombinant 9 completed Sveta Benavides null, [facility] 10/03/2023 09:05:35 zoster recombinant 9 completed Sveta Benavides null, [facility] 10/03/2023 09:05:35 zoster recombinant 9 completed Sveta Benavides null, [facility] 10/03/2023 09:05:35 zoster live 8 completed Sveta Benavides null, [facility] 10/03/2023 09:05:35 Influenza, high-dose, quadrivalent, PF 2 completed Sveta Benavides null, [facility] 10/03/2023 09:05:35 COVID-19, mRNA, LNP-S, bivalent, PF, 30 mcg/0.3 mL dose 2 completed Sveta Benavides null, [facility] 10/03/2023 09:05:35 RSV, recombinant, protein subunit RSVpreF, adjuvant reconstituted, 0.5 mL, PF 3 completed Sveta Benavides null, [facility] 10/03/2023 09:05:35 COVID-19, mRNA, LNP-S, PF, 50 mcg/0.5 mL 3 completed Sveta Benavides null, [facility] 10/03/2023 09:05:35 Pneumococcal conjugate PCV20, polysaccharide [id number] conjugate, adjuvant, PF 3 completed Coleen Cain null, [facility] 12/19/2023 15:36:31 zoster recombinant 8 completed CATA Dunlap, [facility] 04/05/2024 10:16:44 Influenza, high-dose, trivalent, PF 4 completed CATA Dunlap, [facility] 09/28/2024 10:31:09 Pneumococcal conjugate PCV20, polysaccharide [id number] conjugate, adjuvant, PF 3 completed Not Available [facility] 07/01/2025 12:54:55 Hep B, adult 7 completed Sveta shirley, [facility] 10/03/2023 09:05:35 Hep B, adult 7 completed Sveta shirley, [facility] 10/03/2023 09:05:35 Hep B, adult 7 completed Sveta shirley [facility] 10/03/2023 09:05:35 Tdap 2 completed Sveta shirley, [facility] 10/03/2023 09:05:35 pneumococcal polysaccharide PPV23 2 completed Sveta shirley, [facility] 10/03/2023 09:05:35 Influenza, split virus, trivalent, preservative 2 completed Sveta shirley, [facility] 10/03/2023 09:05:35 Influenza, split virus, trivalent, preservative 3 completed Sveta shirley, [facility] 10/03/2023 09:05:35 Influenza, high-dose, quadrivalent, PF 3 completed Mariano Shirley MD [address], [address], [facility] 09/11/2023 12:59:04 Past Encounters Encounter ID Performer Location Encounter Start Date Encounter Closed Date Diagnosis/Indication Diagnosis SNOMED-CT Code Diagnosis ICD10 Code Diagnosis IMO Codes Diagnosis Note [id number] Mariano Shirley MD Main Office [address] [address] 05/04/2014 13:35:09 05/04/2014 14:18:21 Fatigue [id number] Suspect that this might be asthma/all ergy related. Will check labs and if nl follow response to prednisone taper. Acute asthma 670335512 No evidence for infection but if that should evolve or symptoms fail to improve with course of steroids would image and try course of abx. Edema 747561715 Almost back to baseline but with coincident dyspnea will screen for CHF with BNP. [id number] Mariano Shirley MD Main Office [address] [facility] [address] [place], [place] [address] 05/11/2014 14:14:30 05/11/2014 15:32:18 Fatigue 79622164 Suspect that this might be asthma/all ergy related, but given exertional component cardiac contributo r can't be ruled out at this point. Given known valvle disease and her comorbidit ies will ask cardiiolog y for opinion on how to best approach evaluation . Aortic martin ve sclerosis 13430012 [id number] [employer] [address] [facility] [place] [address] 06/29/2012 00:00:00 [id number] [employer]ce [address] [facility],[address] [place] [address] 10/12/2012 00:00:00 [id number] auto[employer] erce [address] [facility],[address] [place] [address] 11/05/2012 00:00:00 [id number] [address] [place] [place] [address],[address] [place] [address] 12/30/2012 00:00:00 [id number] auto[employer] erce [address] [facility],[address] [place] [address] 01/20/2013 00:00:00 [id number] [employer]ce [address] [facility],[address] [place] [address] 06/01/2013 00:00:00 [id number] [employer] erce [address] [facility],[address] [place] [address] 07/01/2013 00:00:00 [id number] [employer] erce [address] [facility],[address] [place], [place] [address] 08/26/2013 00:00:00 [id number] [employer]ce [address] [facility],[address] [place], [place] [address] 10/15/2013 00:00:00 [id number] [employer] erce [address] [facility] [place], [place] [address] 12/31/2013 00:00:00 [id number] [employer] [address] [facility] [place], [place] [address] 01/12/2014 00:00:00 [id number] [employer]ce [address] [facility] [place] [address] 03/16/2014 00:00:00 [id number] NADINE Cabezas Main Office [address] [facility] [address] [place], [place] [address] 06/01/2014 09:48:18 06/01/2014 10:23:01 Pain of joint of foot 773796994 r/o fracture instead of the pain being a cellulitis . not a septic joint since able to move the metatarsal -phalanage al joints FROM no pain Cellulitis of foot 466242197 possible cellulitis foot. non-purule nt. call if redness starts spreading more Fatigue 40977473 currently being worked up for this. reviewing previous notes PCP is having her see cardiology next week. I discussed with pt that if cardio does not see a reason for the fatigue then she should contact our office back [id number] Mariano Shirley MD Main Office [address] [facility] [address] [place], [place] [address] 07/18/2014 09:23:25 07/18/2014 10:54:45 Adult health examination [id number] WIll update mmunizatio n status and screen based on risk factors. Regular dental and ophtho care advised as well as seatbelt and sunscreen use advised. Distracted driving discussed. Breast colon and cervical cancer screening are utd. Pt currently demonstrat es low risk for falls and no significan t cognitive decline. Advance directives discussed. 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 Hyperlipidemia 17311685 Mckay s been at goal and regimen well tolerated. Will reassess and continue current dose. Hypertensive disorder 94867566 Has been labile in the past. Low Na diet, regular exercise and weigh loss advised. If >140/90 at f/u and labs unremarkab le would try diuretic. [id number] Mariano Shirley MD Main Office [address] [place] [address] [place] [address] 08/31/2014 10:06:54 08/31/2014 11:34:32 Hypertensive disorder 20788232 Has be en labile but now persistent ly elevated. Hyperlipidemia 79538610 Mckay s been at goal and regimen well tolerated. Will reassess and continue current dose. Edema 526610212 See if addition af a diuretic helps mitigate this issue as well. Thrombosis of arteries of lower extremity 48447450 [id number] Mariano Shirley MD Main Office [address] [place] [address] [place] [address] 10/12/2014 11:21:26 10/12/2014 12:22:31 Hypertensive disorder 90326417 Well controlled on low dose diuretic. Tolerating rx well. Continue current dose. Hyperlipidemia 09924411 Mckay s been at goal and regimen well tolerated. Will reassess and continue current dose. Arthropathy 764390590 Like ly OA. Would prefer celecoxib over ibuprofen. [id number] NADINE Hanks Main Office [address] [address] [place] [address] 11/10/2014 09:57:11 11/10/2014 10:18:06 Cough 56215581 will treat for possible secondary bacterial infx [id number] Mariano Shirley MD Main Office [address] [place] [address] [place] [address] 02/27/2015 09:17:19 02/27/2015 10:02:08 Hypertensive disorder 27332814 Well controlled on low dose diuretic. Tolerating rx well. Continue current dose. Paresthesia 75720555 Given her history and risk factors could be neurogenic or vascular. Will screen for possible metabolic conditions . Has appointmen t with neuro upcoming so will raise this issue with them to start. If eval unremarkab le will need vascular f/u. Hyperlipidemia 12755782 Mckay s been at goal and regimen well tolerated. Will reassess and continue current dose. Allergic rhinitis 96336673 Arthropathy 141123203 Pres umed OA. Would prefer celecoxib over ibuprofen given her comorbidit ies and risk factors. [id number] Mariano Shirlye MD Main Office [address] [facility] [place] [address] 07/31/2015 11:02:57 07/31/2015 12:26:58 Adult health examination 829762961 Z00.00 Immunizati on status utd will screen based on risk factors. Regular dental and ophtho care advised as well as seatbelt and sunscreen use. Distracted driving discussed. Breast colon and cervical cancer screening are utd. Pt currently demonstrat es low risk for falls and no significan t cognitive decline. Advance directives discussed. Body mass index 30+ - obesity 129179898 E66.9 Pt frustrated with regards to her weight and the secondary comorbidit ies. Has tried weight watchers, but wants/need s further help with this issue. Healthy diet habits as well as regular exercise advised. Insomnia 300987944 G47.0 0 Pt has some risk factors for ROBBY but declines screening at this time. Potential termite control servicer health consequenc es discussed. Will follow. 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 No longer following with vascular. This and PVD managed with clopidogre l and compressio n stockings. Peripheral venous insufficiency 84003873 I87.2 Aortic martin ve sclerosis 02701577 I35.8 Symptomati cande stable. Previous ECHO done 3 years ago. Will follow clinically for now. Hypertensive disorder 38 904186 I10 Poor control but suspect that recent regular NSAID use is a factor. Patient asymptomat ic and ECG unremarkab le. Pt will stop NSAID and come back for reassessme nt in 2-3 weeks. [id number] Mariano Shirley MD Main Office [address] [place] [address] 08/21/2015 09:32:00 08/21/2015 10:48:03 Hypertensive disorder 70191525 I10 Better control today with regular NSAID use out of the picture. Advised to try and limit use as much as possible. Will continue low dose diuretic for now. Tremor 75876225 R25.1 This coupled to gait issues requires neuologic eval to rule out essential tremor vs Parkinson' s. Will screen for thyroid disease. [id number] Albert Alcaraz MD Main Office [address] [address] [place] [address] 12/23/2015 08:15:57 12/23/2015 08:59:30 Injury of lower limb 867477710 S80.922A [id number] Pamela Pickard PA-C Main Office [address] [address] [place] [address] 02/09/2016 11:00:51 02/09/2016 11:41:59 Pre-surgery evaluation 027395199 Z01.818 Based on comprehens haresh history, PE , EKG findings pt. has no above average risk for the L. rotator cuff surgery. Aortic sclerosis with stable echo and baseline symptoms of some sob with exertion. NOrmal EKG nad BP. Labs are ordered and will be reviewed and completed note forwarded to surgeon before 02/14/16. Disorder o f rotator cuff 927925745 M75.82 Essential hypertension 39698865 I10 Asthma 865287834 J45.90 9 Hyperlipidemia 95614488 E78.5 [id number] Mariano Shirley MD Main Office [address] [place] [address] [place] [address] 02/21/2016 09:34:47 02/21/2016 10:13:18 Essential hypertension 09185601 I10 Hyperlipidemia 93863197 E78.5 Has been at goal and regimen well tolerated. Will reassess and continue current dose. Body mass index 30+ - obesity 681975903 E66.01 Pt frustrated with regards to her weight and the secondary comorbidit ies. Has tried weight watchers, but wants/need s further help with this issue. Healthy diet habits as well as regular exercise advised. Essential tremor 9680188 09 G25.0 Minimally symptomati c. Consider BB if symptoms worsen. [id number] Mariano Shirley MD Main Office [address] [address] [place] [address] 06/10/2016 12:40:40 06/10/2016 13:34:28 Pain of hip region 07264554 M25.551 History and exam findings c/w bursitis for which she just had an iunjection . Advised to f/i with ortho if persistent /worse. Pain in right knee 72113 84534 54597 M25.561 Given that she is s/p right TKR and recent apsiration with unremarkab le lab results, I have little to suggest for this issue. We will karine NEOS to confirm that I am not overlookin g something. Influenza vaccine needed [id number] 106 Z23 Gastroesop hageal reflux disease 229481616 K21.9 Well controlled . Will try to wear PPI to QOD dosing for a few weeks and if still well controlled try H2B therapy PRN instead. [id number] Mariano Shirley MD Main Office [address] [facility] [address] [place] [address] 08/02/2016 10:11:28 08/02/2016 11:25:24 Adult health examination 883597587 Z00.00 Immunizati on status utd will screen based on risk factors. Regular dental and ophtho care advised as well as seat belt and sunscreen use. Distracted driving discussed. Breast colon and cervical cancer screening are utd. Pt currently demonstrat es low risk for falls and no significan t cognitive decline. Advance directives discussed. Thrombosis of arteries of lower extremity 76936288 I74.3 from aortic atheroma in the past. No longer following with vascular. This and PVD managed with clopidogre l and compressio n stockings. Body mass index 30+ - obesity 452228600 E66.01 Pt frustrated with regards to her weight and the secondary comorbidit ies. Has tried weight watchers, but wants/need s further help with this issue. Healthy diet habits as well as regular exercise advised. Claudication 708134749 I 73.9 Pt will follow up with vascular to re-evaluat e her PVD and see if additional treatment options are available. Menopause present 442243 006 Z78.0 Screening for malignant neoplasm of breast 500810753 Z12.39 Cramp in lower limb 4499 72976 R25.2 Hyperlipidemia 33194998 E78.5 Has been at goal and regimen well tolerated. Will reassess and continue current dose. [id number] Mariano Shirley MD Main Office [address] [address] [place] [address] 01/15/2017 13:06:01 01/15/2017 13:43:45 Hand pain 06353145 M79.641 M79.642 ? CTS vs RA. Regardless based on degree if symptoms will refer to ortho to help sort out and treat accordingl y. Pain of mu ltiple joints 95286695 M25.50 Will rule out deficiency as the cause of her multiple joint pains. Has had normal sed rate recently. Acquired t tube former operator finger 9193091 M65.30 Will start with conservati ve management and defer injection therapy decision to ortho. [id number] Mariano Shirley MD Main Office [address] [address] [place] [address] 02/03/2017 09:09:24 02/03/2017 10:07:51 Essential hypertension 71961324 I10 Hoarse 98023507 R49.0 Possibly related to thrush vs allergies. Advised to resume antihistam ine even though previous allergy testing was reportedly negative. Candidiasis of mouth 797 27224 B37.0 Consider clotrimazo le hyacinth if persistent /worse. [id number] Mariano Shirley MD Main Office [address] [place] [address] [place] [address] 03/27/2017 13:50:53 03/27/2017 14:35:55 Pre-surgery evaluation 443784725 Z01.818 Essential hypertension 67927720 I10 [id number] Scott Pickard PA-C Main Office [address] [place] [address] 05/21/2017 10:54:29 05/21/2017 12:03:12 Open wound of lower limb 96719930 S81.802A [facility] past Cellulitis of lower leg 690278683 L03.116 Spinal estefany nosis of lumbar region 60634935 M48.[address] Valente in past - was on pain pills thru him, also seen by neurosurge on - he had advised her to f/u c PCP for considerat ion of narcotic contract - she ran out of dilaudid yest - she is requesting pain pills - will give 2-3 days of dilaudid to help prevent withdrawal . checked EDUCATIONAL/DEVELOPMENT ASSISTANT - appropriat e Accidental ly struck by or against stationary object 187905541 W22.8XXA [id number] Mariano Shirley MD Main Office [address] [place] [place] [address] [place] [address] 05/23/2017 08:53:43 05/23/2017 09:49:27 Open wound of lower limb 87695932 S81.802D Responding well to abx change. Will complete 10 days of tx. Will reassess following completion . Spinal estefany nosis of lumbar region 49837302 M48.06 Will maintain pt on narcotic pain regimen until surgery is performed. Narcotic contract completed. Accidental ly struck by or against objects or persons 134749622 W22.8XXD [id number] Mariano Shirley MD Main Office [address] [place] [address] 05/30/2017 08:59:33 05/30/2017 09:46:51 Open wound of lower limb 48311762 S81.802D Healing well, will defer further abx for now. Call if not continuing to slowly resolve. Acute vaginitis 23274545 N76.0 take probiotic and start OTC monistat if persistent . Call inb/worse. Will need to hold trazodone/ simvastati n if oral therpay is needed. Accidental ly struck by or against objects or persons 605195104 W22.8XXD [id number] Mariano Shirley MD Main Office [address] [place] [address] 06/27/2017 12:42:46 06/27/2017 13:37:31 Open wound of hand 623878888 S61.402A Unclear if this is the source of inflammati on, will monitor with leg wound as above. Open wound of lower limb 51711610 S81.802D Healing well compared to 05/30, without subtle evidence for celulitis. CRP value of 0.8 is basically unchanged from 05/2016 (0.7), and CBC is normal, but ESR is elevated at 40. which raises potential concern for infection/ cellulitis . I called and spoke with Dr Chino (covering for Dr. Rosario) and advised postponing surgery until this issue resolves. Pt was started on Bactrim and will continue this for at least 2 weeks with clinical and lab f/u during the treatment course. Peripheral vascular disease 447245217 I73.9 Lower extremity erythema partially related to this issue. Anxiety state 488864610 F41.1 Pt requesting rx preop. Will be driven to hospital. Hypogammaglobulinemia 11 9605517 D80.1 Continue treatment are per hematology to further minimize risk for perioperat haresh infectious complicati ons. Accidental ly struck by or against objects or persons [id number] W22.8XXD [id number] Mariano Shirley MD Main Office [address] [facility] [address] [place] [address] 07/03/2017 11:29:29 07/03/2017 12:24:19 Influenza vaccine needed [id number] 106 Z23 Cellulitis of left lower limb [id number] 5460206 L03.116 Clinically continues to resolve. Will see if inflammato ry markers follow the same trend. If not may need eval for other possible secondary causes. Continue abx for full 2 weeks for now. [id number] Mariano Shirley MD Main Office [address] [facility] [address] [place] [address] 07/10/2017 09:03:14 07/10/2017 09:30:17 Cellulitis of lower leg 466769506 L03.116 Continues to take bactrim and wound is healing well. Spinal estefany nosis of lumbar region 95425648 M48.06 Will maintain pt on narcotic pain regimen until surgery is performed. Erythrocyt e sedimentation rate above reference range 714611508 R70.0 I have been using this as a marker for cellulitis /wound healing. Today's value has increased. Whether this is related to the wound or other secondary factors (ie recent influenza vaccinatio n) is not discernabl e. Will extend course of therapy and ask that her elective back surgery be deferred until biomarker trend improves or wound closes completely . [id number] Pamela Pickard PA-C Main Office [address] [facility] [address] [place] [address] 07/25/2017 10:36:24 07/25/2017 11:20:17 Spinal stenosis of lumbar region 96145539 M48.062 Narcotic contract is on file. Pt. will continue Hydromorph one as per contract ( 2 mg BID) and will return as scheduled in 1 month. IN the mean time pt. has kyle. with both rheum. and ID for July adn August to evaluate for high ESR. [id number] Mariano Shirley MD Main Office [address] [facility] [address] [facility] [place] [address] 08/08/2017 10:46:59 08/08/2017 12:12:12 Adult health examination 858096121 Z00.00 WIll update immunizati on status and screen based on risk factors. Regular dental and ophtho care advised as well as seat belt and sunscreen use advised. Distracted driving discussed. Breast colon and cervical cancer screening are utd. Pt currently demonstrat es low risk for falls and no significan t cognitive decline. Advance directives discussed. Body mass index 30+ - obesity 507556579 E66.01 Z68.34 Erythrocyt e sedimentation rate above reference range 107316721 R70.0 ESR is normalizin g on recent lab work. No physical evidence of active infectious disease and rheumatolo gic evaluation was negative as well. Spinal estefany nosis of lumbar region 22491376 M48.062 Surgery has been postponed. Given resolution of infection and normalizin g of ESR, pt is medically stable and clear to proceed with surgery as planned. Essential hypertension 69886484 I10 Gastroesop hageal reflux disease 210455333 K21.9 Well controlled . Did not tolerate PPI wean. Will ask GI for considerat ion of further evaluation Screening for malignant neoplasm of colon 679116052 Z12.11 Pt will schedule f/u with Dr Kwok, nydia. Obesity 127649808 E66.9 Hyperlipidemia 16008025 E78.5 Has been at goal and regimen well tolerated. Will reassess and continue current dose. Peripheral venous insufficiency 67736324 I87.2 Chronic, following with vascular. Risk factor control excellent. Carotid ar delvin stenosis 09398505 I65.29 [id number] Mariano Shirley MD Main Office [address] [facility] [address] [facility] [place] [address] 09/12/2017 09:54:08 09/12/2017 10:37:49 Spinal stenosis of lumbar region 80212930 M48.062 Surgery has been postponed. Given resolution of infection and normalizin g of ESR, pt is medically stable and clear to proceed with surgery as planned. Will continue current narcotic pain medication dosing until surgical interventi on is reschedule d. Acute vaginitis 95241662 N76.0 Call inb/worse. Will need further evaluation then. [id number] Mariano Shirley MD Main Office [address] [facility] [place] [address] 09/29/2017 14:09:06 09/29/2017 14:52:02 Abdominal pain 21786383 R10.9 With loose stool I suspect that this is most likely diverticul itis. Between this and suspect hernia I will refer her for CT to elaborate/ verify diagnoses. Pt advised to call if symptoms worsen/per sist. Diverticular disease 397 638332 K57.90 Call inb/worse or with any problems on abx. Anterior a bdominal wall mass 774925632 R19.09 Refer to surgery if confirmed. [id number] Mariano Shirley MD Main Office [address] [place] [address] 10/14/2017 11:05:34 10/14/2017 12:07:23 Essential hypertension 13676167 I10 Fair control, continue current regimen. Cholangiectasis 57166022 4 K83.8 Will order MRCP to further evaluate biliary dilation. Hernia of abdominal cavity 73619931 K46.9 Does not correlate directly with source of abdominal discomfort , but if persistent will discuss surgical consultati on. Spinal estefany nosis of lumbar region 25442038 M48.062 Surgery has been reschedule d to 11/03. Given resolution of infection and normalizin g of ESR, pt is medically stable and clear to proceed with surgery as planned. Will continue current narcotic pain medication dosing until surgical interventi on is complete Aortic martin ve sclerosis 23689858 I35.8 Symptomati cande stable. Previous ECHO done over 3 years ago. Will reassess. [id number] Mariano Shirley MD Main Office [address] [facility] [address] [facility] [place] [address] 11/26/2017 16:38:16 11/27/2017 07:58:16 [id number] Scott Pickard PA-C Main Office [address] [facility] [address] [place] [address] 12/10/2017 13:57:33 12/10/2017 15:02:09 Spinal stenosis of lumbar region 67926792 M48.061 s/p surgery last month, cont to f/u c ortho - next f/u 3.22, cont vna/pt/ot as dir for now Gastroesop hageal reflux disease 160884137 K21.9 cont ppi qd Constipation 31380572 K5 9.00 rec. increase miralax to 1/2 scoop twice daily - as bowels moving better can stop colace then Essential hypertension 28155322 I10 bp stable - cont meds as dir, stable Cr at hospital last month, will recheck Anemia 540549815 D64.9 post op anemia h/h of 06/09 - will re-check [id number] Mariano Shirley MD Main Office [address] [address] [place] [address] 03/12/2018 10:18:29 03/12/2018 11:15:00 History of spinal fusion 0356667420 9107 Z98.1 Adequate hydration advised. Titrate gabapentin and use muscle relaxant short term for likely spasm in brace following surgical spine repair. Kyphosis o f thoracic spine 099405409 M40.295 s/p surgical repair with persistent post op pain and no ortho f/u for 10 days. EDUCATIONAL/DEVELOPMENT ASSISTANT reviewed Rx provided a supply of hydromorph one to last until ortho f/u arranged. If longterm pain mgmt is required will defer to ortho or refer to pain mgmt to stabilize. [id number] Mariano Shirley MD Main Office [address] [facility] [address] [place] [address] 04/02/2018 12:58:53 04/02/2018 14:02:32 Essential hypertension 23161139 I10 Fair control, continue current regimen. Spinal estefany nosis of lumbar region 97684066 M48.062 Slowly improving post op. History of spinal fusion 3598727145 9107 Z98.1 Pain mgmt being monitored/ managed by surgery. Edema 660014203 R60.9 Likely related to post op status/derian ous insufficie ncy. Screen for nephropath y/CHF. Continue diuretic, and compressio n stockings. Call if persistent /worse, momo if assymetry develops. Candidal intertrigo 2661 08045 B37.2 Suspect a secondary inflammato ry component. See if short course of steroid helps. Advised not to use longterm. Carotid ar delvin stenosis 79878377 I65.29 Following with vascular. Risk factor reduction pretty well controlled . Umbilical hernia 3417811 07 K42.9 Will monitor clinically for now. Advised of signs/symp toms of incarcerat ion and to go to ED if noted. [id number] Mariano Shirley MD Main Office [address] [place] [address] 07/02/2018 08:56:26 07/02/2018 09:47:05 Infectious colitis, enteritis and gastroenteritis 131233595 A09 Will call to request stool culture and CT scan results. Pt will complete course of cipro. Advised to start probiotic and let me know if symptoms aren't slowly improving. Hypokalemia 19232648 E87 .6 Will reassess and replete again if persistent . [id number] Mariano Shirley MD Main Office [address] [facility] [place] [address] 08/11/2018 10:07:57 08/11/2018 11:27:28 Adult health examination 266689564 Z00.00 WIll update immunizati on status and screen based on risk factors. Regular dental and ophtho care advised as well as seat belt and sunscreen use advised. Distracted driving discussed. Breast and cervical cancer screening are utd. Pt currently demonstrat es low risk for falls and no significan t cognitive decline. Advance directives discussed. Essential hypertension 78929251 I10 Insomnia 910937693 G47.0 0 Pt has some risk factors for ROBBY but continues to decline screening at this time. Potential termite control servicer health consequenc es discussed. Will follow. Influenza vaccine needed 3041052555 106 Z23 Screening for malignant neoplasm of breast 154446992 Z12.39 Menopause present 931807 006 Z78.0 Due for follow up screening. Screening for malignant neoplasm of colon 574497786 Z12.11 Z12.12 Pt will schedule f/u with Dr Kwok, nydia. Body mass index 30+ - obesity 064824968 E66.01 Z68.30 Hypogammaglobulinemia 11 3373920 D80.1 Continue treatment are via hematology to further minimize risk for perioperat haresh infectious complicati ons. [facility] 499596136 Z91.81 Umbilical hernia 8286097 07 K42.9 Will monitor clinically for now. Advised of signs/symp toms of incarcerat ion and to go to ED if noted. Carotid ar delvin stenosis 47272371 I65.29 Following with vascular. Risk factor reduction pretty well controlled . Obesity 314087539 E66.9 Gastroesop hageal reflux disease 486466228 K21.9 Well controlled . Did not tolerate PPI wean. No active warning signs. Continue current regimen. Hyperlipidemia 86615059 E78.5 Has been at goal and regimen well tolerated. Will reassess and continue current dose. Peripheral venous insufficiency 62009027 I87.2 Chronic, following with vascular. Risk factor control excellent. Peripheral vascular disease 553734228 I73.9 [id number] Mariano Shirley MD Main Office [address] [facility] [address] [place] [address] 09/15/2018 13:25:42 09/15/2018 14:33:19 Spinal stenosis of lumbar region 81391148 M48.062 Slowly improving post op. I will assume narcotic prescrbing and contiue to try and wean. Urinary incontinence 165 545901 R32 Urge incontinen ce. See if anticholin ergic helps. If not may need dose titration, urodynamic s and urology consult. Chronic pain syndrome 37 4231524 G89.4 [id number] Mariano Shirley MD Main Office [address] [facility] [address] [facility] [place] [address] 10/14/2018 09:07:00 10/14/2018 10:00:07 Spinal stenosis of lumbar region 35676864 M48.[address] Rx renewed for 90 day supply as per the terms. Will arrange PMR f/u as soon as she returns from [place]. Insomnia 410251907 G47.0 0 Pt has some risk factors for ROBBY but continues to decline screening at this time. Potential termite control servicer health consequenc es discussed. Advised not to use med every day and not to take with her opiate or alcohol. Will follow. [id number] Mariano Shirley MD Main Office [address] [facility] [address] [facility] [place] [address] 01/13/2019 11:18:20 01/13/2019 12:18:43 Insomnia 367249582 G47.00 Pt has some risk factors for ROBBY but continues to decline screening at this time. Potential termite control servicer health consequenc es discussed. Advised not to use med every day and not to take with her opiate or alcohol. Will follow. Pre-surger y evaluation 952894466 Z01.818 Morales CV risk score is 0.19%. Patient is at low risk for cardiopulm onary complicati ons with planned procedure based on comorbidit ies, good exertional tolerance and overall procedure risk. Pt advised to hold clopidogre l and NSAIDS for 7 days prior. Medically stable/jeramie ared to proceed with surgery as planned. Arthritis of hand 134813 005 M13.849 Scheduled for surgical interventi on on left 5th digit with Dr. Cisse on 01/21. Immunodefi ciency disorder 022105244 D84.9 Following with veterans service representative. Recent asthma flare felt to be related to her not getting her IVIG recently. Essential hypertension 96397875 I10 Well controlled . Continue current regimen. Aortic martin ve sclerosis 96754251 I35.8 Symptomati cande stable. Recent echo showed mild stable valve Moderate p ersistent asthma 371116097 J45.40 Off of po steroids and symptoms improving. Defer mgmt to veterans service representative. Should not complicate surgical plans. Prolonged QT interval 11 6404724 I45.81 Mild and new. WIll check electrolyt es/divalen ts and if normal monitor for now. [id number] Mariano Shirley MD Main Office [address] [facility] [address] [place] [address] 02/19/2019 09:10:47 02/19/2019 09:56:02 Spinal stenosis of lumbar region 15129604 M48.[address] Rx renewed for 90 day supply as per the terms. Will arrange PMR f/u as soon as she returns from [place]. Essential hypertension 34544647 I10 Well controlled . Continue current regimen. Insomnia 549409359 G47.0 0 Pt has some risk factors for ROBBY but continues to decline screening at this time. Potential longterm health consequenc es discussed. Doing well with gabapentin which makes sense with ehr chronic musculoske letal issues. Will try to wean trazodone, and continue to use ambien for particular ly difficult nights. Carotid ar delvin stenosis 22128520 I65.29 Following with vascular. Risk factors well controlled . Schedule to have f/u dopplers in July. [id number] Mariano Shirley MD Main Office [address] [facility] [address] [place] [address] 03/23/2019 10:55:57 03/23/2019 11:44:41 Cellulitis of lower leg 390398734 L03.116 Not convinced that there is a bacterial component at this time. Advised to start if redness worsens or warmth develops. Call with an problems. Abrasion o f skin of lower limb 369439099 S80.812A Continue wound care try calmosepti ne during the day hours. Peripheral venous insufficiency 97151081 I87.2 Refer to wound care if not slowly improving. [id number] Mariano Shirley MD Main Office [address] [facility] [address] [facility] [place] [address] 05/25/2019 10:01:04 05/25/2019 10:40:10 Spinal stenosis of lumbar region 30984653 M48.[address] Rx renewed for 90 day supply as per the terms. Pt currenly using meds appropriat sanjeev and knows that she does Insomnia 410448939 G47.0 0 Pt has some risk factors for ROBBY but continues to decline screening at this time. Potential termite control servicer health consequenc es discussed. Doing well with gabapentin which makes sense with her chronic musculoske letal issues. Will try continue trazodone, and use ambien for particular ly difficult nights. Hyperlipidemia 36839510 E78.5 Had been at goal and regimen not responsibl e for muscle symptoms. Will resume statin. [id number] Albert Alcaraz MD Main Office [address] [facility] [address] [place] [address] 06/28/2019 12:51:55 06/28/2019 13:42:03 Pre-surgery evaluation 653562004 Z01.818 Bilateral cataracts 9572 2004 H26.9 Insomnia 447639203 G47.0 0 Hyperlipidemia 51952277 E78.5 Spinal estefany nosis of lumbar region 12416216 M48.061 cont pain management as per pcp Essential hypertension 50958210 I10 bp stable - cont meds as dir, stable Cr in 4.19 History of pulmonary embolus 807829034 Z86.711 cont AC as dir Moderate p ersistent asthma 504360783 J45.40 Off of po steroids and symptoms improving. Defer mgmt to veterans service representative. Should not complicate surgical plans. Aortic martin ve sclerosis 25168995 I35.8 Symptomati cande stable. Recent echo showed mild stable valve Immunodefi ciency disorder 524102027 D84.9 [id number] Mariano Shirley MD Main Office [address] [facility] [address] [facility] [place] [address] 08/17/2019 09:21:45 08/17/2019 10:29:44 Adult health examination 019301129 Z00.00 Immunizati on status updated. Screening utd based on risk factors. Regular dental and ophtho care advised as well as seat belt and sunscreen use advised. Distracted driving discussed. Breast and cervical cancer screening are utd. Pt currently demonstrat es low risk for falls and no significan t cognitive decline. Advance directives discussed. Influenza vaccine needed 3026752401 106 Z23 Essential hypertension 76037595 I10 Well controlled . Continue current regimen. Cramp in lower leg 41560 8009 R25.2 Left side, has vascular Body mass index 30+ - obesity 633673951 E66.01 Z68.31 Peripheral vascular disease 854566288 I73.9 Spinal estefany nosis of lumbar region 67135636 M48.[address] Rx renewed for 90 day supply as per the terms. Pt currenly using meds appropriat sanjeev and knows that she does Moderate p ersistent asthma 867804128 J45.40 Off of po steroids and symptoms improving. Defer mgmt to veterans service representative. Should not complicate surgical plans. Administra tion of pneumococcal vaccine 87667853 Z23 Advance di rective discussed with patient 139558329 Z71.89 MOLST and HCP forms provided/r eviewed with pt. She will return them at her next appt. [id number] Mariano Shirley MD Main Office [address] [facility] [place] [address] 09/20/2019 09:19:56 09/20/2019 10:03:22 Chronic pain syndrome 821550749 G89.4 Spinal estefany nosis of lumbar region 18977661 M48.[address] Rx renewed for 90 day supply as per the terms. Pt currently using meds appropriat sanjeev with improved level of function. Insomnia 873613909 G47.0 0 Pt has some risk factors for ROBBY but continues to decline screening at this time. Potential longterm health consequenc es discussed. Doing well with gabapentin which makes sense with her chronic musculoske letal issues. Will try continue trazodone, and use ambien for particular ly difficult nights. Essential hypertension 32668482 I10 Well controlled . Continue current regimen. Requesting 90 day supply. Neuropathy 726946644 G62 .9 [id number] Mariano Shirley MD Main Office [address] [address] [place] [address] 10/15/2019 15:02:46 10/15/2019 16:20:00 Acute sinusitis 38941982 J01.90 In light of her risk factors and comorbidit ies as well as exam findings will cover for bacterial source. Advised to call if not slowly improving or if additional symptoms develop. Acute asthma 137710604 J 45.901 No evidence of flare now but if symptoms should evolve rx provided for steroid. [id number] Mariano Shirley MD Main Office [address] [facility] [address] [facility] [place] [address] 10/23/2019 10:45:46 10/23/2019 11:46:48 Chronic sinusitis 91237049 J32.9 Symptoms not improving. Will broaden coverage. Karine inb/worse . Essential hypertension 43817667 I10 Normotensi ve today. Suspect that recent spikes are related to acute illness. Will monitor. [id number] Mariano Shirley MD Main Office [address] [facility] [address] [facility] [place] [address] 01/05/2020 09:21:40 01/05/2020 13:35:23 Acute exacerbation of chronic obstructive pulmonary disease 783534800 J44.1 in an attempt to keep pt out of hospital, will empiricall y rx c higher dose of pred pulse and longer course of doxy. also rec alb tid, mucinex, probiotic advised pt if sig worse sob then to go to ER also rec cont self-quara ntine in light of covid pandemic Exposure t o viral disease 9184213571 29938 Z03.818 [id number] Mariano Shirley MD Main Office [address] [address] [place] [address] 01/13/2020 09:22:53 01/13/2020 11:00:12 Hyperlipidemia 01045664 E78.01 Has been at goal and regimen well tolerated. Will reassess and continue current dose. Refill requested. Candidiasis of mouth 797 29202 B37.0 Consider clotrimazo le hyacinth if persistent /worse. [id number] Mariano Shirley MD Main Office [address] [address] [place] [address] 01/18/2020 14:04:25 01/19/2020 12:59:16 Acute pharyngitis 542000658 J02.9 Most likely secondary to thrush and post nasal drip. Candidiasis of mouth 797 86091 B37.0 Not tolerating nystatin very well. Will try clotrimazo le hyacinth instead. Chronic sinusitis 462355 00 J32.9 Sounds more allergic than infectious at this point. Will see if steroid taper helps while continuing nasal steroid/an tihistamin e and sinus irrigation . [id number] Mariano Shirley MD Main Office [address] [place] [address] 01/25/2020 08:43:08 01/25/2020 11:15:43 Essential hypertension 87387936 I10 Mildly elevated based on reported home readings, but in the context of prednisone therapy not too bad. Will contiue diuretic dose. Chronic pain syndrome 37 1304808 G89.4 Spinal estefany nosis of lumbar region 16349058 M48.[address] Rx renewed for 90 day supply as per the terms. Pt currently using meds appropriat sanjeev with improved level of function. Insomnia 851597946 G47.0 0 Pt has some risk factors for ROBBY but continues to decline screening at this time. Potential longterm health consequenc es discussed. Doing well with gabapentin which makes sense with her chronic musculoske letal issues. Will try continue trazodone, and use ambien for particular ly difficult nights. Persistent cough 4056569 02 R05 Seems allergy related but already taking oral/nasal antihistam ine and nasal steroid. Better on prednisone but not a longterm option. Pt has f/u scheduled with veterans service representative. Consider montelukas t inb/worse after completing prednisone taper. [id number] Mariano Shirley MD Main Office [address] [facility] [address] [place] [address] 02/01/2020 08:58:55 02/01/2020 12:01:21 Asthma 259558402 J45.51 Back to baseline, off of oral prednisone . Will continue maintenanc e medication s for asthma/all ergies and follow up with veterans service representative/ pulmonolog ist as scheduled. Candidiasis of mouth 797 13136 B37.0 Resolved with clotrimazo le. Preventive measures discussed/ advised. [id number] Mariano Shirley MD Main Office [address] [place] [address] 05/02/2020 11:22:33 05/02/2020 13:39:02 Essential hypertension 57009539 I10 Well controlled . Continue current regimen. Spinal estefany nosis of lumbar region 13586801 M48.[address] Rx renewed for 90 day supply as per the terms. Pt currently using meds appropriat sanjeev with improved level of function. Osteoarthritis of hip 23 4906829 M16.9 Not sure that this is the cause of her discomfort . If back etiology is ruled out need to consider vascular etiology. Has appt with them in the Fall. Neuropathy 944528649 G62 .9 Hepatitis C screening 41 1114645 Z11.59 [id number] Jasmin hopkins MD Main Office [address] [facility] 207 [facility] [place] [address] 06/08/2020 09:18:01 06/08/2020 10:06:35 Acquired scoliosis 808879780 M41.[address] Rosario at [facility], pt does not want more surgery, treating aleks castellon, sees pain mgmt Essential hypertension 19169674 I10 Spinal estefany nosis of lumbar region 30923722 M48.[address] Salazar, will discuss PT Pain in lower limb 46269 006 M79.661 M79.662 Due to leg pain and cramping at night with paresthesi as would refer to neurology on advice of her back surgeon Insomnia 410689790 G47.0 9 pt takes this nightly, refilled in Dr Shirley' s absence Body mass index 30+ - obesity 053554724 E66.01 Encouraged healthy eating, watch portion size. Encouraged exercise as able but has limitation . [id number] Mariano Shirley MD Main Office [address] [facility] [address] [place] [address] 07/25/2020 13:26:12 07/25/2020 14:31:59 Hyperlipidemia 10383504 E78.01 Has been at goal and regimen well tolerated. Will reassess and continue current dose. Influenza vaccine needed [id number] 106 Z23 Insomnia 858255201 G47.0 0 Pt has some risk factors for ROBBY but continues to decline screening at this time. Potential termite control servicer health consequenc es discussed. Doing well with gabapentin which makes sense with her chronic musculoske letal issues. Will try continue trazodone, and use ambien for particular ly difficult nights. Muscle cramps have been somewhat mitigated by HS muscle relaxant. Essential hypertension 38751508 I10 Well controlled . Continue current regimen. Spinal estefany nosis of lumbar region 80804913 M48.[address] Rx renewed for 90 day supply as per the terms. Pt currently using meds appropriat sanjeev with improved level of function. [id number] Mariano Shirley MD Main Office [address] [facility] [address] [place] [address] 08/22/2020 09:25:02 08/22/2020 10:34:18 Adult health examination 367789861 Z00.00 Immunizati on status updated. Screening utd based on risk factors. Regular dental and ophtho care advised as well as seat belt and sunscreen use advised. Distracted driving discussed. Breast and cervical cancer screening are utd. Pt currently demonstrat es low risk for falls and no significan t cognitive decline. Advance directives discussed. Menopause present 686422 006 Z78.0 Due for follow up screening. At [facility] risk for falls 612752122 Z91.81 Already undergoing PT. Essential hypertension 08028080 I10 Well controlled . Continue current regimen. Cramp in lower leg 87017 8009 R25.2 Left side, has vascular and neurology follow up scheduled. Body mass index 30+ - obesity 417390264 E66.01 Z68.31 Peripheral vascular disease 337303156 I73.9 Followed by vascular. Moderate p ersistent asthma 148995233 J45.40 Currently well controlled and managed by allergy. Advance di rective discussed with patient 305422557 Z71.89 MOLST and HCP forms provided/r eviewed with pt again. She will return them at her next appt. Hernia of anterior abdominal wall 179740069 K43.9 Asymptomat ic. Understand s potential complicati ons and to call for surgical consultati on if symptoms develop. Aortic martin ve sclerosis 53647189 I35.8 Symptomati cande stable. Louder on exam today will reassess. Albuminuria 091630240 R8 0.9 Insomnia 227206433 G47.0 0 Pt has some risk factors for ROBBY but continues to decline screening at this time. Potential termite control servicer health consequenc es discussed. Doing well with gabapentin which makes sense with her chronic musculoske letal issues. Muscle cramps have been somewhat mitigated by HS muscle relaxant. Is out of zolpidem early and is not sure why. rx provided that she can fill for cadena until insurance will cover refill. [id number] Mariano Shirley MD Telehealt [facility] [address] [facility] [address] [place] [address] 08/31/2020 08:12:54 08/31/2020 10:31:47 Candidiasis of mouth 86569384 B37.0 no tolerate nystatin s&s in past, but has suraj. clot troches - so will rx c this [id number] Jasmin hopkins MD Main Office [address] [place] [address] 09/14/2020 13:10:56 09/14/2020 14:07:49 Laceration of lower leg 547970095 S81.812A Elevation of leg, keep clean and dry, start antibiotic for infection, has appt with vascular upcoming and will try to get wound care nydia. If worsening or not improving to call back . Recheck in a few days if unable to see wound care. Cellulitis of lower limb 367753946 L03.116 renew antibiotic , will try to get into wound care nydia, call if worsening and ED if acutely worse. Requires a tetanus booster 120504398 Z28.3 Td to be given today [id number] Arnaldo Chavez MD [facility] [address] [facility] [address] [place] [address] 09/20/2020 11:08:02 09/20/2020 14:22:30 Cellulitis of lower limb 169034905 L03.116 still has swelling, worsening redness, blood blister, she is concerned it is not healing. has 4.5 days left of doxy. Will add keflex BID x 7 days, continue probiotic. She declines XRay today. saw vascular yesterday and had ABIs and carotid study. She will see them again next week. Instructed to keep area clean and dry, elevate leg. use heat/ ice as needed. Peripheral vascular disease 803563563 I73.9 saw vascular yesterday Traumatic blister of knee 901015079 S80.221A large, on the knee, no drainage from it. [id number] Arnaldo Chavez MD [facility] [address] [facility] [address] [place] [address] 09/23/2020 09:40:53 09/23/2020 11:36:19 Cellulitis of lower limb 726144543 L03.116 She has been taking doxycyclin e since 09/14 and keflex since 09/20 but she is not improving. She required IV abx and skin grafting in the past for a cellulitis . She will go to the ER if it worsens and we will try to move her Wound Care appt to Friday the (from Friday the ). [id number] Mariano Shirley MD [facility] [address] [facility] [address] [place] [address] 10/27/2020 07:22:59 10/27/2020 11:53:02 Spinal stenosis of lumbar region 63705260 M48.[address] Rx renewed for 30 day supply as pt is going to [place] next [place] and will be there for 2-3 months. She will call with pharmacy informatio n once she settle in down there. Pt currently using meds appropriat sanjeev with improved level of function. Upper abdominal pain 831 63825 R10.10 Suspect constipati on. Will see if imaging confirms and try to manage it accordingl y. [id number] Mariano Shirley MD [facility] [address] [facility] [address] [facility] [place] [address] 01/19/2021 08:53:18 01/19/2021 13:54:47 Spinal stenosis of lumbar region 91113510 M48.062 Symptoms well controlled on current dose. Narcotic contract in place. Rx renewed for 90 day supply. Iliac artery stenosis 31 9071810 I77.1 Has appt with vascular in 2 weeks. Acute vaginitis 61027642 N76.0 Call inb/worse. Will need further evaluation then. Insomnia 500937485 G47.0 0 Pt has some risk factors for ROBBY but continues to decline screening at this time. Potential longterm health consequenc es discussed. Doing well with gabapentin which makes sense with her chronic musculoske letal issues. Will contineu to wean trazodone and see how it goes. [id number] Arnaldo Chavez MD [facility] [address] [facility] [address] [facility] [place] [address] 01/31/2021 12:56:47 01/31/2021 15:00:07 Dyspnea on exertion 46716599 R06.09 Needs repeat d-dimer and covid test -as COVID can cause elevated d-dimer- to get her infusion. will order repeat testing. Exposure t o viral disease 1423439025 50598 Z03.818 Immunodefi ciency disorder 028655691 D84.9 She has not had her IVIG infusion in [address] Schmitt is on vacation and due to elevated d-dimer another provider was unable to order it. She did have a CT scan and PE was ruled out. Asthma 366650546 J45.90 9 [id number] Mariano Shirley MD Main Office [address] [facility] [place] [address] 02/19/2021 13:35:04 02/19/2021 15:01:29 Cellulitis of left lower limb 7677967122 5643068 L03.116 Given appearance and risk factors will cover for possible pseudomona s with quinolone. Advised to call with any problems on abx. Open wound of left lower leg 0810805931 9238052 S81.802A Given appearance and risk factors will ask wound care for assistance . Pt will call to arrrange and let me know if there are any issues. [id number] Enzo Paris MD Main Office [address] [facility] [address] [facility] [place] [address] 02/23/2021 13:53:16 02/23/2021 14:47:51 Cellulitis of left lower limb 8665807696 7160424 L03.116 Given that there was no improvemen t with Levaquin and with the possibilit y of a discharge I believe that this is purulent cellulitis and thus have changed antibiotic s to Bactrim for MRSA coverage. The surroundin g area of erythema was marked patient was told that if this read further she should go to the hospital at that point for IV antibiotic s given her risk factors. A wound culture was taken however the results may be confounded given that she had applied some silver cell edema to the wound. Open wound of left lower leg 9716810220 2596168 S81.802A Patient reached out to the wound clinic and was not able to get an appointmen t till March 08 and thus I will have patient come in for wound check next week to ensure that there is improvemen t. Ulcer of l ower extremity 68500517 L97.909 [id number] Mariano Shirley MD Main Office [address] [facility] [address] [place] [address] 02/27/2021 12:46:38 02/27/2021 13:18:03 Cellulitis of left lower limb 2326144132 6904992 L03.116 Responding well to Bactrim alone, will continue. Wound was cleaned/dr antoine. Pt advised to try calmosepti ne. Open wound of left lower leg 4685960821 4481610 S81.802D Has wound care appt on 03/08. Advised to call with any new developmen ts or issues in the meantime. [id number] Mariano Shirley MD Telehealt h [address] [facility] [address] [facility] [place] [address] 04/12/2021 08:25:59 04/12/2021 15:43:44 Essential hypertension 81657697 I10 Well controlled . Continue current regimen. Atrial dilatation 934640 03 I51.7 Left, seen on recent echo which was requested and reviewed. Aortic valve disease has also progressed . History of spinal fusion 9602833767 9107 Z98.1 Insomnia 486167511 G47.0 0 Pt has some risk factors for ROBBY but continues to decline screening at this time. Potential longterm health consequenc es discussed. Doing well with gabapentin which makes sense with her chronic musculoske letal issues. Spinal estefany nosis of lumbar region 06462875 M48.062 Symptoms well controlled on current dose. Narcotic contract in place. Rx rewritten for 28 day supply. Aortic valve stenosis 60 815206 I35.0 Based on cardiology note and echo report review she needs a cardiac cath and cardiac surgery consultati on. [id number] Mariano Shirley MD Telehealt h [address] [facility] [address] [place] [address] 05/25/2021 11:38:58 05/25/2021 13:58:51 Spinal stenosis of lumbar region 72110712 M48.062 Symptoms well controlled on current dose. Narcotic contract in place. Rx rewritten for 28 day supply x 3 months of 2mg tablets. Aedvised to call with any problems. Aortic valve stenosis 60 850228 I35.0 Approach being considered . Pt has no concerning symptoms. Foreign body in hand 211 551871 S60.552A Will ask hand surgeon to assess further. Pt will schedule appt nydia and call with any problems. Pain of left heel 840352 6300 513047 M79.672 ? if orthopedic vs vascular vs neurologic . Will try using heel cushion and see if helps. Would check xr next if persistent /worse. [id number] Mariano Shirley MD Main Office [address] [facility] [address] [place] [address] 07/26/2021 09:19:04 07/26/2021 10:14:35 [id number] Mariano Shirley MD Main Office [address] [facility] [address] [place] [address] 08/01/2021 09:18:13 08/01/2021 22:48:43 [id number] Mariano Shirley MD Main Office [address] [facility] [address] [place] [address] 08/27/2021 09:26:52 08/27/2021 10:48:17 Adult health examination 406040156 Z00.00 Immunizati on status updated. Screening utd based on risk factors. Regular dental and ophtho care advised as well as seat belt and sunscreen use advised. Distracted driving discussed. Breast and cervical cancer screening are utd. Pt currently demonstrat es low risk for falls and no significan t cognitive decline. Advance directives discussed. Influenza vaccine needed 3590802297 106 Z23 Essential hypertension 71773309 I10 Well controlled . Continue current regimen. Hyperlipidemia 18698648 E78.01 Has been at goal and regimen well tolerated. Will reassess and continue current dose. Screening for malignant neoplasm of colon 647140435 Z12.11 Had negative cologuard testing in 2018 and previous colonoscop y negative. Based on age/comorb idities and lack of symptoms I feel that further screening is not warranted. Emphysemat ous bronchitis 315025403 J44.9 Hordeolum externum of upper eyelid of right eye 0705816515 69198 H00.011 See if warm compress and topical abx helps. Xerostomia 80016625 K11. 7 Screen for autoimmune disease. Consider medication trial depending on results and symptoms progressio n. Body mass index 30+ - obesity 226788924 E66.01 Z68.30 Carotid ar delvin stenosis 83204979 I65.29 Diffuse disease seen on recent CTA neck. Had f/u with cardiology and vascular in the next [facility]. CVA - cere brovascular accident due to cerebral artery occlusion 132221824 I63.50 Minimal residual symptoms. Continue to maintain risk factor control. [id number] Mariano Shirley MD Main Office [address] [facility] [address] [place] [address] 09/18/2021 08:46:50 09/18/2021 13:17:51 [id number] Mariano Shirley MD [facility] [address] [facility] [address] [place] [address] 09/21/2021 11:57:35 09/21/2021 14:47:22 Abdominal aortic aneurysm 539166264 I71.4 Has appt with vascular next week for further evaluation of 3cm AAA. Intestinal obstruction 41121673 K56.609 Likely related to infectious process but given this and that she has not had a colonoscop y since 2006 (negative cologuard in 2018) [place] ask GI for assessment . Constipation 17857501 K5 9.00 Will address post ileus constipati on with Miralax nydia and try senna for maintenanc e. Gastroesop hageal reflux disease 922579968 K21.9 Not as well controlled on pantoprazo le. WIll try titrating dose. Acute vaginitis 34823749 N76.0 Call inb/worse. Will need further evaluation then. [id number] Mariano Shirley MD Main Office [address] [facility] [address] [place] [address] 09/25/2021 10:39:32 09/25/2021 11:20:35 Lumbar radiculopathy 241307119 M54.16 Symptoms worsening. Using pain meds but has also responded to injections by PMR in the past. Pt will schedule f/u with Dr. Roman. Spinal estefany nosis of lumbar region 04583047 M48.062 Symptoms well controlled on current dose. Narcotic contract in place. Rx rewritten for 28 day supply x 2 months of 2mg tablets. Going to [place] on 10/27 so will send further refills there. She will call with location. Xerostomia 86784636 K11. 7 Screen for autoimmune disease. Will hold cetirizine and see if it helps. Consider holding diuretic next if no improvemen t. Drug-induc ed constipation 23612305 K59.03 Will titrate senna dose to avoid loose stool. [id number] Jasmin hopkins MD Main Office [address] [facility] [address] [place] [address] 10/25/2021 09:25:27 10/25/2021 09:37:49 Administration of pneumococcal vaccine 42526322 Z23 Advance di rective discussed with patient 252690054 Z71.89 [id number] Mariano Shirley MD [facility] [address] [facility] [address] [place] [address] 12/21/2021 08:49:38 12/21/2021 12:50:06 Lumbar radiculopathy 196093007 M54.16 Symptoms stable and medication s afford improved function. Pt is still in [place] so unable to send medication s for now. Will call when refill is needed and arrange office f/u upon return. Drug-induc ed constipation 37570550 K59.03 Will continue senna at current dose. Restless l egs syndrome 03293243 G25.81 Could be vascular or neurogenic . Taking gabapentin . Will arrange vascular f/u upon return to [place]. [id number] Mariano Shirley MD Main Office [address] [facility] [address] [place] [address] 01/15/2022 12:55:45 01/15/2022 14:02:18 Essential hypertension 72086989 I10 Not at goal but suspect that weight gain and diet are contributi ng. Will continue current regimen for now and reasess at f/u. Spinal estefany nosis of thoracic region 08749338 M48.04 Utox negative but pt has not been using medication regularly while waiting for appt. Laceration of left lower leg 0653671392 9508780 S81.812A Will use calmosepti ne and continue wound care. Given her vascular disease, will see if formal wound care can be arranged. No current evidence for infection to warrant further abx therapy. Insomnia 437541343 G47.0 0 Pt has some risk factors for ROBBY but continues to decline screening at this time. Potential longterm health consequenc es discussed. Doing well with gabapentin which makes sense with her chronic musculoske letal issues. Spinal estefany nosis of lumbar region 53576072 M48.062 Symptoms well controlled on current dose. Narcotic contract in place. Having persistent leg pain that may be neurogenic or vascular. See if increasing gabapentin dose helps. [id number] Mariano Shirley MD Main Office [address] [facility] [address] [place] [address] 03/27/2022 09:33:53 03/27/2022 10:14:10 [id number] Arnaldo [facility] [address] [facility] [address] [place] [address] 03/27/2022 14:14:49 03/28/2022 09:19:45 COVID-19 870017640 U07.1 Hydration, rest, if feeling better quarantine x 5 days then mask for 5 days. If not better after 5 days quarantine for full 10 days. Tylenol/ ibuprofen as needed, Call/ return for worsening sx or concerns. Counseling 334011685 Z71 .9 Health advice, education or counseling done for COVID 19 Diarrhea 59696829 R19.7 DO not take more immodium, stop augmentin, re-start daily probiotic, bland diet and advance as tolerated. Paxlovid can also cause diarrhea but she has risk factors so I recommend she continue paxlovid for now. If sx worsen or continue please call/ return. Dizziness 776399671 R42 took a dose of meclizine earlier today. Essential hypertension 20416480 I10 Notes BP is normal. [id number] Mariano Shirley MD Main Office [address] [facility] [address] [facility] [place] [address] 04/02/2022 10:47:10 04/02/2022 11:52:08 Chronic pain syndrome 177465874 G89.4 Stable, will continue current regimen. Essential hypertension 88439752 I10 Not at goal but suspect that weight gain and diet are contributi ng. Will continue current regimen for now and reassess at f/u. Prediabetes 719880324 R7 3.03 Will follow up on A1C of 5.9 in the hospital. Dizziness 792262070 R42 will d/c gabapentin , ? if related to volume depletion vs COVID infection will request recent echo report as murmur sounds prominent today. Pt has cardiology follow up. Impacted c erumen in right ear 1171344867 550882 H61.21 Successful irrigation /disimpact ion in office. Will see if symptoms improve. Spinal estefany nosis of lumbar region 92786838 M48.062 Symptoms well controlled on current dose. Narcotic contract in place. Lumbar radiculopathy 128 985231 M54.16 Symptoms stable and medication s afford improved function. [id number] Enzo Paris MD Main Office [address] [facility] [address] [facility] [place] [address] 04/10/2022 15:45:32 04/10/2022 16:35:56 Dizziness 727720562 R42 ? fluid in middle ear vs post covid syndrome. continue allergy medication , keep hydrated, and rest. f/u 3 weeks as scheduled Headache 72219178 R51.9 Likely post covid headache. pt can not take decongesta nts due to HTN. Cannot take NSAIDS due to use of blood thinners. will send in medrol dose pack as an antiinflam matory and pt. will also take . advise to take extra strength tylenol ever 6 hours. Drug-induc ed hypokalemia 862101792 E87.6 repeat K levels. Advised to take K and Mg supplement ation Essential hypertension 49922890 I10 sign up for [facility] . Pt to check BP 3-4 times a week. f/u 3 weeks as scheduled Post-acute COVID-19 1119 038007 U09.9 [id number] Mariano Shirley MD Main Office [address] [facility] [address] [place] [address] 04/25/2022 15:44:46 04/26/2022 09:08:54 Edema of lower extremity 019359734 R60.0 check d-dimer and u/s duplex to r/o dvt *update --- D-dimer negative/n ormal - dvt significan tly less likely Cellulitis of lower limb 277630135 L03.119 will empiricall y rx for cellulitis c keflex while awaiting results of above tests Peripheral arterial occlusive disease 584104474 I73.9 cont f/u c vasc Peripheral venous insufficiency 18175371 I87.2 cont f/u c vasc Hypokalemia 94573786 E87 .6 recheck bmp as above Essential hypertension 67942632 I10 bp stable - cont meds as dir [id number] Mariano Shirley MD Main Office [address] [facility] [address] [place] [address] 05/01/2022 10:28:06 05/01/2022 11:29:11 Dizziness 943634993 R42 no evidence of bppv or orthostasi s, she c/o mild nasal congestion - rec ns spray prn and cont flonase as dir, and f/u c neuro as dir by pulm (pt states saw pulm recently and he referred her to neuro) Edema of l ower extremity 341051164 R60.0 D-dimer and u/s duplex negative/n ormal - no evidence of dvt Cellulitis of lower limb 469766902 L03.116 LLE looking better but not fully resolved - finish abx as dir, see below Peripheral vascular disease 978737204 I73.9 ? has superficia l vasculitis - cont f/u c vasc tomorrow Essential hypertension 28277550 I10 bp & cr stable - cont meds as dir [id number] Mariano Shirley MD Main Office [address] [facility] [address] [facility] [place] [address] 06/04/2022 13:26:17 06/04/2022 14:14:09 Lumbar radiculopathy 761435115 M54.16 Symptoms stable and medication s afford improved function. Polyarthropathy 59947322 M13.0 Symptoms seem migratory and suggestive of a systemic process. Will screen for autoimmune /reactive arthropath ies. Consider extending steroid course if short course does not provide resolution . Refer to rheum if testing abnormal. Immunodefi ciency disorder 653376999 D84.9 Following with veterans service representative. May be resuming immunother apy. [id number] Mariano Shirley MD Tele[facility] [address] [facility] [address] [place] [address] 07/02/2022 08:36:43 07/02/2022 11:58:44 Open wound of left lower leg 9243038431 7239939 S81.802A due to the inherent limitation s of a TH encounter, advised her if cannot get into wound care timely (pt requested wound care eval - will attempt stat, last seen by them ~ 6 months ago) - then she should come into our office or go to [facility] to have her wound examined in person meanwhile, cont abx as dir by [facility] - doxy 100mg bid x 7 days, cont silver nitrate for 1-2 more days until no further bleeding - then changeover to calmosepti ne (has at home, has used before) or triple abx ointment, but then apply telfa pad and then cover c gauze Cough 31938258 R05.9 see above/aure obrien Hypogammaglobulinemia 11 1061249 D80.1 seen by imm yesterday - no note to review - cont doxy as dir by them - likely rx'ing for pna, could also help leg wound above Moderate p ersistent asthma 496612909 J45.40 see above [id number] JAMES GEIGER MD Main Office [address] [facility] [address] [place] [address] 07/05/2022 10:53:28 07/05/2022 11:37:40 Open wound of left lower leg 8108843594 9310730 S81.802A - pt does have a wound care appoitment on 07/30 however based on pateint's comorbidit ies would need a sooner appoitment - wound dressed today and pt was taught how to do dressing changes at home as well- supplies sent to pharmacy: gauze, non-adhere nt pads and bacitracin - pt has wound cleansing solution at home- ED precaution s given- antibiotic s switched because doxycyline was not helping, there is concern of patient developing cellulitis Candidiasis of mouth 797 15825 B37.0 - plaques noted in patient mouth that were easily scrapped off- pt on symbicort and hx of being immunocomp romised which could be causing infection- counselled on maintainin g oral hygiene Cellulitis of lower limb 519459533 L03.116 - left lower leg is swollen, erythemato us and warm- pt is immunocomp romised- doxycyline which was given for congestion heard in the lung by immunologi st is not helping- ordered bactrim BID for the next 10 days- ED precaution s given Blood pres sure above reference range 24888297 R03.0 - pt does have a history of essential hypertensi on currently on chlorthali done 25mg QD- BP today in office was 171/71- pt is in a lot of pain therefore could be contributi ng to the increase in BP- pt currently denies chest pain, headaches, heart palpitatio n's, dizziness or SOB- ED precaution s given- pt will return on 07/25 and if BP still elevated, medication regimen will be changed [id number] Jasmin hopkins MD Main Office [address] [facility] [address] [place] [address] 07/08/2022 10:54:36 07/09/2022 10:29:42 Dyspnea 547461854 R06.00 likely from COPD exacerbati on but cannot rule out PE, pneumonia, chf. [facility] called to see if they could do a visit tonight or tomorrow am. They will call to set up an appt .Confirmed pt will be seen tonight. Cellulitis 286357586 L03 .90 wound LLE, evaluate for need for IV antibiotic s or more immediate wound care evaluation . [id number] Mariano Shirley MD Main Office [address] [address] 07/15/2022 13:28:11 07/15/2022 14:22:59 Influenza vaccine needed [id number] 106 Z23 Cardiomegaly 4722488 I51 .7 Essential hypertension 64396493 I10 Not at goal with possible CHF. Will switch to stronger diuretic and check labs. Non-rheuma tic mitral valve stenosis 251034882 I34.2 Candidiasis of mouth 797 77745 B37.0 No evidence for recurrence based on todays exam. Dyspnea at rest 36291078 7 R06.00 Possibly just from her chronic pulmonary issues and COVID recovery, but given cardiac history that needs to be assessed as well. Will screen for CHF and anemia as well as try to move up echocardio gram. Emphysemat ous bronchitis 242494723 J44.9 Followed by pulmonary. COntinue current regimen. [id number] aMriano Shirley MD Main Office [address] [address] 08/06/2022 09:55:17 08/06/2022 10:57:29 Essential hypertension 75761544 I10 Well controlled . Conitnue current regimen. Chronic pain syndrome 37 7255511 G89.4 Stable, will continue current regimen. Candidiasis of mouth 797 17138 B37.0 No evidence for recurrence based on todays exam. Left lower quadrant pain 405186698 R10.32 Based on reported symptom developmen t and comorbidit ies screening for mesenteric ischemia is warranted. Lumbar radiculopathy 128 078017 M54.16 Symptoms stable and medication s afford improved function. Heart failure 91943815 I 50.9 Possible that elevated BNP is related to MV disease. ECHO done this AM. Will continue furosemide . [id number] Mariano Shirley MD Main Office [address] [facility] 207 [facility] [place] [address] 09/09/2022 08:51:27 09/09/2022 10:05:41 Adult health examination 467254191 Z00.00 Immunizati on status updated. Screening utd based on risk factors. Regular dental and ophtho care advised as well as seat belt and sunscreen use advised. Distracted driving discussed. Breast and cervical cancer screening are utd. Pt currently demonstrat es low risk for falls and no significan t cognitive decline. Advance directives discussed. Chronic sinusitis 150390 00 J32.9 Working with ENT, currently on abx. Essential hypertension 12656024 I10 Well controlled . Continue current regimen. Gastroesop hageal reflux disease 978548482 K21.9 Well controlled on pantoprazo le without warning signs. Continue current dose. Body mass index 30+ - obesity 237439636 Z68.30 E66.9 Immunodefi ciency disorder 326276345 D84.9 Following with veterans service representative. May be resuming immunother apy. Moderate p ersistent asthma 570634111 J45.40 Currently well controlled and managed by allergy. 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 Following with cards and pulm. 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 Urge incon tinence of urine 11782912 N39.41 Screen for retention/ obstructio n and discuss treatment accordingl y. Advance di rective discussed with patient 874986759 Z71.89 MOLST and HCP forms provided/r eviewed with pt again. She will return them at her next appt. Atheroscle rosis of superior mesenteric artery 9738316183 1237397 K55.1 Symptoms stable. Has vascular appt next month. [id number] Enzo Paris MD Main Office [address] [facility] [address] [place] [address] 10/16/2022 10:53:43 10/16/2022 11:56:44 Headache 46065116 R51.9 Likely post covid headache. pt can not take decongesta nts due to HTN. Cannot take NSAIDS due to use of blood thinners. At this point it's been several months. WE will have head CT to r/o intracrani al pathology and refer to neurologis t for headache management . Pt. agreed wit this plan. [id number] Mariano Shirley MD Main Office [address] [facility] 207 [facility] [place] [address] 10/24/2022 10:48:03 10/24/2022 11:42:22 Chronic pain syndrome 082200907 G89.4 Stable, will continue current regimen. Lumbar radiculopathy 128 779844 M54.16 Symptoms stable and medication s afford improved function. Narcotic contract in place. Insomnia 219772706 G47.0 0 Pt has some risk factors for ROBBY but continues to decline screening at this time. See if doxepin is effective to reduce need/use of hypnotic. Essential hypertension 78165596 I10 Wants to switch back to chlorthali done for diuretic therapy Asthma 352013027 J45.51 Currently on abx and steroid via pulm and veterans service representative. Vitals/sym ptoms currently stable. [id number] Mariano Shirley MD Main Office [address] [facility] 207 [facility] [place] [address] 10/31/2022 08:20:43 11/05/2022 08:41:34 [id number] Jasmin hopkins MD Main Office [address] [facility] 207 [place] [address] 11/01/2022 10:32:22 11/01/2022 11:40:45 Atrial fibrillation 80689211 I48.91 New onset afib with RVR, discharged 2 days ago with services. Pt is newly on digoxin and eliquis, HR in 80, Oxygen sat ok, feels improved overall. Called for cardiology appt, no changes in med at this time. Discussed remaining on both eliquis and plavix due to vascular condition and prev hx of stroke wit Dr Shirley. He advises remaining on both for now. Would like to do cardiac monitoring nydia. If any new inc SOB to call or go to ED Hypokalemia 23616200 E87 .6 lab today, currently off potassium as she is off lsix as well. Dyspnea on exertion 6084 5006 R06.09 BNP in hospital > 5000, will repeat to compare. Does not seem to be in clinical HF today. Right uppe r quadrant pain 212362911 R10.11 Mild to moderate, responds to anti gas med, To call or ED if acutel worse, Consider ultrasound if persistent . Cough 18036123 R05.9 hx asthma and recent RSV, cough persistent , check labs and if normal and cough is worsening to call and would do cxr. No pneumonia heard today, can try 1/3 to 1/2 dose albuterol if very wheezy and monitor HR. If > 100 stop. O2 sat normal today. Karine with up date on friday. [id number] Mariano Shirley MD Main Office [address] [facility] [address] [place] [address] 01/23/2023 11:32:03 01/23/2023 12:37:39 Insomnia 460200393 G47.00 pt requests refill Chronic pain syndrome 37 6186380 G89.4 pt to f/u c AW for chronic pain meds Atrial fibrillation 4943 6004 I48.91 cont f/u c card Obstructiv e sleep apnea syndrome 39701490 G47.33 had recent sleep study, pending get cpap Essential hypertension 76764388 I10 bp & cr stable - cont meds as dirbp ave 126/69 c RPM - cont as dir Diastolic heart failure 154098685 I50.30 seen by card yest - had elevated probnp & wt gain - resumed lasix, next ov c card next week advised pt to avoid salt! Hypokalemia 33022998 E87 .6 likely d/t diuretic and / or being off supplement recently - cont diuretic and potassium supplement as dir, recheck bmp ac see card next week c cc: card [id number] Mariano Shirley MD [facility] [address] [facility] [address] [place] [address] 02/21/2023 12:32:27 02/21/2023 14:06:42 Fracture of manubrium sterni 8925044750 0981822 S22.21XA Will increase her chronic narcotic dose and try short term NSAID therapy to help with pain control and hopefully minimize splinting. Has incentive spirometer and was encouraged to use it regularly. Reassess in 2 weeks. Advised to call if cough/feve r develop. Lumbar radiculopathy 128 M54.16 Symptoms stable and medication s afford improved function. Narcotic contract in place. Insomnia 777520378 G47.0 0 Pt has some risk factors for ROBBY but continues to decline screening at this time. Using hypnotic sparingly. [id number] Mariano Shirley MD [facility] [address] [place] [address] 02/25/2023 10:35:28 02/25/2023 12:01:41 Fracture of manubrium sterni 4667064265 5771868 S22.21XA Will increase her chronic narcotic dose and try short term NSAID therapy to help with pain control and hopefully minimize splinting. Has incentive spirometer and was encouraged to use it regularly. Reassess in 2 weeks. Advised to call if cough/feve r develop. 5.16.23 - advised pt about superimpos ed costochond ritis as well - see below - rec cont meds as dir, but add warm compress in between ice packs (alternate ice/heat) - if get significan tly better temp help c heat then change to heat only - also, rec get salonopas patches - apply to back by day (gettting radiating pain to there), remove at night, and apply salonpas patch to sternum at night, remove in a.m. Costal chondritis 456678 04 M94.0 [id number] Mariano Shirley MD [facility] [address] [place] [address] 03/14/2023 08:54:51 03/14/2023 10:02:41 Fracture of manubrium sterni 7057006016 1379916 S22.21XA Will continue her increased hydromopho ne her chronic narcotic dose and try short term NSAID therapy to help with pain control and hopefully minimize splinting. Has incentive spirometer and was encouraged to use it regularly. Reassess in 2 weeks. Advised to call if cough/feve r develop. Lumbar radiculopathy 128 M54.16 Symptoms stable and medication s afford improved function. Will resume usual pain med maintenanc e regimen once sternal fracture symptoms improve. Narcotic contract in place. Gastroesop hageal reflux disease 386830217 K21.9 On PPI but having worsening post meal symptoms. CT scan from ED reviewed and no obvious etiology determined . Will try adding H2B while on NSAID and if symptoms persist may need UGI. [id number] Mariano Shirley MD [facility] [address] [facility] [address] [place] [address] 03/21/2023 08:35:02 03/24/2023 09:16:39 Impairment of balance 052311184 R26.89 In patient with history of CVA/CVD as well as lower spine stenosis. Given her multitude of risk factors and recent CVA will ask neuro to help with eval and rule out cervical spine stenosis as contributi ng. Obstructiv e sleep apnea syndrome 35303121 G47.33 Has been referred to [facility] sleep medicine/betty thompson. Idiopathic progressive polyneuropathy 46209453 G60.3 Possible contributo r to other symptoms but not improving with replacemen t therapy. Will reassess with next round of lab work. Refill requested today. Insomnia 765338101 G47.0 0 Has new diagnosis of ROBBY but awaiting discussion of treatment options with sleep medicine. Using hypnotic sparingly. [id number] JAMES GEIGER MD Main Office [address] [facility] [address] [facility] [place] [address] 04/01/2023 14:51:05 04/01/2023 15:37:27 Low back pain 858009325 M54.50 - acute on chronic- pain could have been exacerbate d by yard work vs incident that occurred at end to february- will continue with hydromorph one TID at this time> please note pt mentions she never received script for TID placed on 03/14 and has been taking hydromorph one mostly BID> pt was advised that at next visit her dosage will most likely reduce back to BID- pt provided with steroid pack to help reduce inflammati on and pain- ordered MRI of the lumbar spine to ensure no new abnormalit ies of spine noted [id number] Mariano Shirley MD [facility] h [address] [facility] 207 [facility] [place] [address] 04/18/2023 08:40:34 05/15/2023 08:17:42 Chronic pain syndrome 004388703 G89.4 Has needed to escalate daily dosing following sternal fracture. Low back pain 236044751 M54.50 Will maintain current dosing while waiting for PMR eval and NSAID trial impact. History of spinal fusion 4453344301 9107 Z98.1 Has thoracic spine xray ordered, pt will go nydia. Spinal estefany nosis in cervical region 11471565 M48.02 Will see what PMR suggests regarding management . Fracture o f manubrium sterni 8075589810 0892053 S22.21XA Will continue her increased hydromopho ne her chronic narcotic dose and try short term NSAID therapy to help with pain control and hopefully minimize splinting. Esophageal dysphagia 408 98807 R13.19 ? if her sternal injury is impacting swallowing function or possibly contributi ng to tracheal bowing seen on Cspine MRI. Copy of report also forwarded to her pulmonolog ist (Dr. Tripathi). [id number] Mariano Shirley MD Main Office [address] [address] 05/27/2023 12:42:03 05/27/2023 13:27:47 Chronic pain syndrome 582866899 G89.4 Has needed to escalate daily dosing following sternal fracture which has settled down but pt continues to require a third pill on some days. Will prescribe quantity to allow for extra dose half of the month. Low back pain 089158493 M54.50 Has needed to escalate daily dosing following sternal fracture which has settled down but pt continues to require a third pill on some days. Will prescribe quantity to allow for extra dose half of the month. Constipation 43083899 K5 9.00 Will address post ileus constipati on with Miralax and see if probiotic helps. Arterioscl erotic vascular disease 13879535 K55.011 Seems to be having disease progressio n/complica tions. Will ask vascular to follow up with her sooner regarding leg lesions and abdominal pain. Open wound of left lower leg 6975397073 0392872 S81.802A Will cover for possible infection of LLE and try to arrange wound care to facilitate healing in context of her PVD. [id number] Mariano Shirley MD Main Office [address] [facility] [address] [place] [address] 06/30/2023 13:48:40 06/30/2023 14:41:28 Acute sinusitis 36644196 J01.90 recommend probiotics while on abxcont ns spray - see below Asthmatic bronchitis 405 861254 J45.909 to help keep pt out of the hospital, rec take pred pulse as wellalso rec mucinex Essential hypertension 44731752 I10 bp stable - cont meds as diradvised pt to stop prn sudafed d/t htnrather, take brenna or mucinex - see above Moderate p ersistent asthma 108567363 J45.40 cont symbicort as dir c prn alb - see above [id number] Mariano Shirley MD Main Office [address] [facility] [address] [place] [address] 07/09/2023 11:21:57 07/09/2023 12:20:42 Acute sinusitis 95864318 J01.90 recommend probiotics while on abxcont ns spray - see below 07.09.23 - better, finish abx as directed Low blood pressure 09640 003 I95.9 ? orthostasi s likely cause of above dizzinessr ec increase water intakeis on furosemide - has been on 20mg 2 tabs qd - cont as dir, but did gain 5 lbs in past week - see below Dizziness 955545174 R42 no evidence of bppv - see below Atrial fibrillation 4943 6004 I48.91 pt takes BB qd, but wonder if digoxin could be contributi ng to her dizziness - encouraged pt to call call (last seen 04.04) *will fwd copy of this ov note to card* Dyspnea 112798794 R06.00 ? has chf - strongly advised pt to call cardd probnp 1683 back on 11.01.22 - will recheck and cc: results to nhung mendes low salt diet [id number] Mariano Shirley MD Main Office [address] [facility] [address] [place] [address] 09/11/2023 09:32:39 09/11/2023 10:40:06 Adult health examination 987241817 Z00.00 Immunizati on status updated. Screening utd based on risk factors. Regular dental and ophtho care advised as well as seat belt and sunscreen use advised. Distracted driving discussed. Breast and cervical cancer screening are utd. Pt currently demonstrat es low risk for falls and no significan t cognitive decline. Advance directives discussed. Influenza vaccine needed 4696308330 106 Z23 Advance di rective discussed with patient 996407959 Z71.89 MOLST and HCP forms provided/r eviewed/co mpleted with pt. Administra tion of pneumococcal vaccine 43365934 Z23 Screening for malignant neoplasm of colon 750668077 Z12.11 Z12.12 Had negative cologuard testing in 2018 and previous colonoscop y negative. Based on age/comorb idities and lack of symptoms I feel that further screening is not warranted. Body mass index 30+ - obesity 107294727 E66.01 Z68.30 Hypogammaglobulinemia 11 8938683 D84.9 Continue treatment are via hematology to further minimize risk for perioperat haresh infectious complicati ons. Moderate c hronic obstructive pulmonary disease 698683437 J44.9 On controller med therpay and following with Dr. Tripathi. Fairly well controlled . 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 Vitals/sym ptoms currently stable. Persistent atrial fibrillation 766935793 I48.19 Dizziness 523399051 R42 Working with neuro and has f/u scheduled there and with cardiology . Given her cardiac history and this symptom will try to arrange echo prior to facilitate the process. Essential hypertension 82123703 I10 Wants to switch back to chlorthali done for diuretic therapy Gastroesop hageal reflux disease 297320648 K21.9 On PPI but having worsening post meal symptoms. CT scan from ED reviewed and no obvious etiology determined . Will try adding H2B while on NSAID and if symptoms persist may need UGI. History of mechanical aortic valve replacement 4288332371 90843 Z95.2 Last echo over 1 year ago. Will try to arrange prior to her upcoming cardiology appointmen t. At [facility] risk for falls 036281324 Z91.81 Will arrange PT after she returns from [place]. [id number] Mar[facility] [address] [place] [address] 09/26/2023 08:58:54 09/26/2023 10:21:51 Low back pain 361708281 M54.50 Chronic back pain is currently well controlled on this regimen and tolerated. Will provide enough prescripti ons to allow for her to not need a follow up visit until she returns [place]. Hyperlipidemia 47583708 E78.5 Well controlled but atorvastat in may be affording myalgias. Will hold and continue ezetemibe for now. If myalgias improve would switch to rosuvastat in 20mg Arterioscl erotic vascular disease 06276053 K55.011 Needs LDL <70 based on this and other comorbidit ies. History of mechanical aortic valve replacement 3554869192 25969 Z95.2 Recent BNP elevated. Last echo over 1 year ago. Will try to arrange prior to her leaving for [place]. [facility] unable to accommodat e so will try different cardiology group. [id number] Mariano Shirley MD Main Office [address] [place] [address] 01/02/2024 13:59:53 01/02/2024 14:10:37 [id number] Mariano Shirley MD Main Office [address] [place] [address] 01/13/2024 08:59:32 01/13/2024 09:54:04 Coronary arteriosclerosis 06290687 I25.10 Patient asymptomat ic. Will assess risk factor control, BP not ideal but diuretic regimen just modified. Chronic pain syndrome 37 3717200 G89.4 Has needed to escalate daily dosing following sternal fracture which has settled down but pt continues to require a third pill on some days. Will prescribe quantity to allow for extra dose half of the month. Cellulitis of left foot 7914334959 4384128 L03.116 s/p IV abx for left foot infection, completed course of cephalexin and Bactim, Has podiatry f/u today. Lumbar radiculopathy 128 565495 M54.16 Symptoms stable and medication s afford improved function. Will resume usual pain med maintenanc e regimen once sternal fracture symptoms improve. Narcotic contract in place. Atrial fibrillation 4943 6004 I48.91 On DOAC with good rate control. Continue current regimen. Congestive heart failure 45038593 I50.9 Currently compensate d. Being transition ed to torsemide by cardiology Prediabetes 882259753 R7 3.03 Will follow up on A1C of 5.9 in the hospital. Vitamin B1 2 deficiency (non anemic) 85781771 E53.8 On oral supplement , will confirm adequate dosing. [id number] Mariano Shirley MD Main Office [address] [place] [address] 04/05/2024 10:05:15 04/05/2024 11:02:57 Lumbar radiculopathy 518405096 M54.16 Symptoms stable and medication s afford improved function. Will resume usual pain med maintenanc e regimen once sternal fracture symptoms improve. Narcotic contract in place. Esophageal dysphagia 408 78757 R13.19 ? EoE or other dysmotilit y issues. Due for colonoscop y so will ask for assistance on this matter as well. Arterioscl erotic vascular disease 13220688 K55.011 s/p THEODORE, LDL <70 and BP control excellent, needs clopidogre l for 6 months. Adjustment disorder with depressed mood 90310374 F43.21 PHQ improved today. Recent health stressors likely impacting symptoms. Will monitor. [id number] Mariano Shirley MD Main Office [address] [address] 05/10/2024 11:10:26 05/10/2024 12:48:07 Cough 98356585 R05.9 x 1 wk - nonproduct haresh - rec mucinex or brenna == when better, switch to brenna dm or mucinex dmcheck cxr - if negative, wonder if cough d/t gerd - see below- if positive, will rx c abx Gastroesop hageal reflux disease 549210569 K21.9 worsening of gerd lately - pending see gi - advised pt to call gi for eval (took pic of gi phone #)meanwhil e, rec increase ppi to bid 30-60 min meals - hopefully will help above/belo w Esophageal dysmotility 851328619 K22.4 see above re: gi eval Moderate p ersistent asthma 578709919 J45.40 cont inhalers as dir c prn alb - see above, cont f/u c pulm [id number] Mariano Shirley MD Main Office [address] [place] [address] [place] [address] 07/12/2024 10:02:38 07/12/2024 10:51:50 Arteriosclerotic vascular disease 51769648 K55.011 s/p THEODORE, LDL <70 and BP control excellent, remains on clopidogre l CVA - cere brovascular accident due to cerebral artery occlusion 451438587 I63.50 Minimal residual symptoms. Continue to maintain risk factor control. Chronic pain syndrome 37 3556264 G89.4 Has needed to escalate daily dosing following sternal fracture which has settled down but pt continues to require a third pill on some days. Will prescribe quantity to allow for extra dose half of the month. Gastroesop hageal reflux disease 875715354 K21.9 On PPI but having worsening post meal symptoms. Has been seen by GI and another UGI was ordered/pe nding. Insomnia 694781765 G47.0 0 Using hypnotic sparingly. Lumbar radiculopathy 128 423458 M54.16 Symptoms stable and medication s afford improved function. Will resume usual pain med maintenanc e regimen once sternal fracture symptoms improve. Narcotic contract in place. Influenza vaccine needed 3734871425 106 Z23 65 YEARS AND OLDER Prediabetes 738122650 R7 3.03 Will follow up on before next appt. [id number] Arnaldo Chavez MD Main Office [address] [place] [place] [address] [place] [address] 08/25/2024 09:20:14 08/25/2024 09:52:40 Pruritus of vagina 09633142 L29.3 x1 week-has been on doxycyclin e for about 4 weeks now>given by vascular-s ymptoms of vaginal itching/di scomfort x1 week-denie s of any abnormal vaginal discharge, bleeding, or urinary symptoms-u rine dipstick, negative for UTI-will send out vg+ swab [id number] Mariano Shirley MD Main Office [address] [place] [address] [place] [address] 09/08/2024 08:45:26 09/08/2024 09:29:09 [id number] Mariano Shirley MD Main Office [address] [place] [address] 09/28/2024 10:15:17 09/28/2024 11:20:58 Adult health examination 827514153 Z00.00 Immunizati on status updated. Screening utd based on risk factors. Regular dental and ophtho care advised as well as seat belt and sunscreen use advised. Distracted driving discussed. Breast and cervical cancer screening are utd. Pt currently demonstrat es low risk for falls and no significan t cognitive decline. Advance directives discussed. Vitamin D deficiency 347 91186 E55.9 Screening for malignant neoplasm of breast 021744175 Z12.39 Anemia 668428062 D64.9 Body mass index 30+ - obesity 315977484 Z68.30 E66.9 Hypogammaglobulinemia 11 5465840 D80.1 Continue treatment are via hematology to further minimize risk for perioperat haresh infectious complicati ons. Persistent atrial fibrillation 192621056 I48.19 Moderate c hronic obstructive pulmonary disease 147318901 J44.9 On controller med therapy and following with Dr. Tripathi. Fairly well controlled . Essential hypertension 96495929 I10 Well controlled and currently being managed by cards. Diuretic dose being decrease Asthma 990012408 J45.51 Currently on abx and steroid via pulm and veterans service representative. Vitals/sym ptoms currently stable. Gastroesop hageal reflux disease 845506176 K21.9 On PPI but having worsening post meal symptoms. CT scan from ED reviewed and no obvious etiology determined . Will try adding H2B while on NSAID and if symptoms persist may need UGI. Screening for malignant neoplasm of colon 380588367 Z12.11 Z12.12 Had negative cologuard testing in 2018 and previous colonoscop y negative. Based on age/comorb idities and lack of symptoms I feel that further screening is not warranted. Morbid obesity 006143527 E66.01 Hypercoagu lability state 54958820 D68.69 On DOAC for CVA risk reduction. Tolerating well. [id number] Mariano Shirley MD [facility] [address] [place] [address] 10/22/2024 13:08:32 10/25/2024 15:35:02 Backache 482014145 M54.9 Essential hypertension 55718950 I10 Well controlled and currently being managed by cards. Diuretic dose being adjusted based on weight. Lumbar radiculopathy 128 493654 M54.16 Symptoms stable and medication s afford improved function. Will resume usual pain med maintenanc e regimen once sternal fracture symptoms improve. Narcotic contract in place. [id number] Arnaldo Chavez MD Main Office [address] [place] [address] 01/31/2025 13:35:26 01/31/2025 14:10:13 Asthma 747406341 J45.51 c/w current inhaler regimen Acute exac erbation of chronic obstructive pulmonary disease 692054035 J44.1 459616 -recently returned from a cruise 2 weeks ago-sympto ms of worsening cough>jimenez es of any fever, chills, red flag symptoms-p t reports she had left over prednisone and doxycyclin e at home, took both and notes of improvemen ts-c/w current inhaler regimen-wi ll provide 5 day course of prednisone -c/w OTC mucinex and conservati ve measuremen ts-discuss ed to contact office if no improvemen ts or worsening [id number] Arnaldo Chavez MD Main Office [address] [place] [address] 03/28/2025 14:24:40 03/28/2025 14:59:56 Pruritus of vagina 69660575 N89.8 510823 x1 week of vaginal irritation /burning-h as tried OTC yeast infection pills which provided relief, symptoms returned-w ill obtain swab- yeast infection vs. atrophic vaginitis> if swab is negative and symptoms persist, likely atrophic vaginitis and will provide estrogen gel [id number] Mariano Shirley MD Main Office [address] [place] [address] 04/18/2025 10:53:48 04/18/2025 11:41:33 Congestion of nasal sinus 21880411 R09.81 753429 rec stop zyrtec, but cont montelukas t as dirrec mucinex bid, ns spray oftencall if worse / no better - to consider abx - can tolerate doxy [id number] Mariano Shirley MD [facility] [address] [facility] [address] [place] [address] 05/13/2025 12:46:42 05/13/2025 15:33:03 Chronic pain syndrome 139203182 G89.4 Has needed to escalate daily dosing following sternal fracture which has settled down but pt continues to require a third pill on some days. Will prescribe quantity to allow for extra dose half of the month. Essential hypertension 83345498 I10 Well controlled on 2 diuretics. Will continue current regimen and arrange routine labs. Hyperlipidemia 36783448 E78.5 Well controlled but atorvastat in may be affording myalgias. Will hold and continue ezetemibe for now. If myalgias improve would switch to rosuvastat in 20mg Lumbar radiculopathy 128 195269 M54.16 Symptoms stable and medication s afford improved function. Will resume usual pain med maintenanc e regimen once sternal fracture symptoms improve. Narcotic contract in place. [id number] Mariano Shirley MD Main Office [address] [facility] [address] [place] [address] 06/17/2025 13:08:25 06/17/2025 13:54:27 Vulvovaginitis 41752773 N76.0 79701 secondary to oral antibiotic . Recom fluconazol e 150 1 tab , repeat in 72 hrs and external combinatio steroid -antifunga l cream for 7 days. Also, try estrogen cream after completed vaginitis treatment. If not relief or symptoms reoccur, refer to fagot heater. Atrophic vaginitis 33253 000 N95.2 03159 [id number] MD [facility] [address] [facility] [address] [place] [address] 07/01/2025 12:54:01 07/01/2025 16:03:20 History of operative procedure on foot [id number] 6083002 Z98.890 [id number] s/p bunionecto my on 06/29 warranting more pain control. Will titrate dose x 1 month to up to 4mg daily. Resume previous dosing next month. Lumbar radiculopathy 128 833265 M54.16 695901 Health Concerns Section Related Observation LastModified by Organization Detai ls LastModified Time None Recorded Concern Status LastModified by Organization Details LastModified Time None Recorded Advance Directives Directive Y: HCP/ -Martin, Dtr-Mo ra Payers Insurance Date Sequence Insurance Name Policy Number Policy Francis Covered Member ID Francis Member ID Guarantor Name 12/02/2024 1 [place] [employer] Barbi Hernandez [id number] Barbi Hernandez 06/04/2022 3 [place] [id number] Barbi Hernandez [id number] Barbi Hernandez 08/01/2025 2 [place] [id number] Barbi Hernandez [id number] Barbi Hernandez 08/01/2025 1 [place] [employer] Barbi Hernandez [id number] Barbi Hernandez 06/04/2022 2 [place] [facility] [id number] Barbi Hernandez [id number] Barbi Hernandez 06/04/2022 2 [place] [facility] ([facility] [id number] Barbi Hernandez [id number] Barbi Hernandez Notes Date Note Type Note Provider Name and Address Organization Details Recorded Time 03/28/2025 text/html ROS as noted in the HPI Barbi is an 79yr old F who presents for vaginal irritation. Endorses vaginal irritation, itching, burning sensation x1 week. Has tried OTC medication for yeast infection (3 day supply) which provided some relief, however symptoms did return. Denies of any abnormal vaginal bleeding, known trauma, or discharge. ARIEL AL [address] [address], [place], [address], [facility] 03/28/2025 14:56:07 04/18/2025 text/html Pt c/o sinus congestion since a couple of months, and tired after 2 hours of waking up since a couple of months everyday.markedly worse past 1-2 wks+ fatigueno dizziness, tooth/jaw paintaking zyrtec and montelukastrare pur nasal dc+ frontal sinus hano cough, wheezeseen by pulm last wk - normal exam Scott Pickard PA-C [address], [place], [address], [facility] 04/18/2025 12:38:32 05/13/2025 text/html InsomniaReported by PatientHPIFor context, patient reportsusing medications for sleep. For associated symptoms, patient reportssleep apnea. For severity, patient reportsimproving. For duration, patient reportsfrequent.Has been working with sleep medicine and recently given new mask which is leaking less and more effective at relieving symptoms. Back PainReported by PatientHPIFor quality, patient reportsdull. For location, patient reportspain is not radiating. For severity, patient reportssame. For duration, patient reportschronic. For context, patient reportsprior back problemsandused medications for back pain.Has established diagnosis of spinal stenosis. Had surgical repair x 2 over [id number]. Had been stable on dilaudid 1-2/day until 02/20/23 she sustained a traumatic injury to her anterior mid chest and went to [facility] [place] she was diagnosed with an acute fx of her manubrium. Still requiring hydromorphone TID on some days. Had an MRI of her Cspine which showed multilevel spondylosis and lower stenosis, for which she saw PMR and injections were offered but she declines for now. Thoracic spine xray showed fractured lumbar spine stabilizing rods. She discussed this with her surgeon's office and was advised that hardware removal/cement would be the only option to correct this. Medications help improve mobility. Coronary Artery Disease F/UReported by PatientHPIFor associated symptoms, patient reportsdyspnea with exertionbut reportsno chest pain. For severity, patient reportssymptoms are improving. For context, patient reportsnon-smoker.Had cardiac cath with Dr. Yates on 03/10/24 with THEODORE to LAD, BP and lipid control have been well controlled based on home monitoring. Need to reassess lipid control.ROS as noted in the HPI Mariano Shirley MD [address], [place], [address], [facility] 05/13/2025 14:03:28 06/17/2025 text/html ROS as noted in the HPI 79 year old female c/o recurrent vulvovaginal dryness and itching. This time she was on antibiotic for foot infection for 10 days and started with itching while on treatment. Reports no vaginal discharge, She has been told she would benefit from estrogen cream, but it was never prescribed. Last time evaluated for similar symptoms in March with negative nuswab.No discharge.She took last dose of cefadroxil today (for toe infection). Pamela Pickard PA-C [address] [facility] [address], [place], [address], [facility] 06/17/2025 13:57:06 07/01/2025 text/html Musculoskeletal PainReported by PatientHPIFor quality, patient reportsachinganddull. For severity, patient reportsworsening. For location, patient reportsright footandgreat toe. For duration, patient reportspresent <1 month. For timing, patient reportsconstant. For associated symptoms, patient reportsno feverandno weak limbs.Had right bunionectomy done on 06/29 and is on chronic hydromorphone for back pain. Narcotic contract in place and pt has been appropriate with use. Needs rx from co for pain meds, NSAID sent in by podiatry. Back PainReported by PatientHPIFor quality, patient reportsdull. For location, patient reportspain is not radiating. For severity, patient reportssame. For duration, patient reportschronic. For context, patient reportsprior back problemsandused medications for back pain.Has established diagnosis of spinal stenosis. Had surgical repair x 2 over [id number]. Had been stable on dilaudid 1-2/day until 02/20/23 she sustained a traumatic injury to her anterior mid chest and went to [facility] where she was diagnosed with an acute fx of her manubrium. Still requiring hydromorphone TID on some days. Had an MRI of her Cspine which showed multilevel spondylosis and lower stenosis, for which she saw PMR and injections were offered but she declines for now. Thoracic spine xray showed fractured lumbar spine stabilizing rods. She discussed this with her surgeon's office and was advised that hardware removal/cement would be the only option to correct this. Medications help improve mobility.ROS as noted in the HPI Maria R shirley [place] [facility] 07/13/2025 16:33:36 OBGyn Episode No OBEpisode recorded.
== END 2025-08-02 10:55 | disposition home or self-care (01) ==
LOC: HO.HSM 10:16
PROVIDERS: PCP Pediatrics; Referring Provider Physician Assistant Medical; Visit Provider Registered Nurse
DX: G44.209 Tension-type headache, unspecified, not intractable (principal); Z86.73 Personal history of transient ischemic attack (TIA), and cerebral infarction without residual deficits
CPT/HCPCS: 99214

== ENCOUNTER → 2025-08-02 10:15 | Outpatient (BNVA) | payer MEDICARE, SELFPAY | PROVIDERS: PCP Pediatrics; Referring Provider Physician Assistant Medical; Visit Provider Registered Nurse | DX: G44.209 Tension-type headache, unspecified, not intractable (principal); Z86.73 Personal history of transient ischemic attack (TIA), and cerebral infarction without residual deficits | CPT/HCPCS: 99212 ==

== ENCOUNTER 2025-09-22 10:23 | Outpatient (AMB) | payer MEDICARE, SELFPAY ==
--- NOTE | 2025-09-22 10:25 | A.OFFVIS_ITS ---
Intake Visit Reasons: 3m Allergies amoxicillin (From Augmentin) Allergy (Unknown, Verified 09/22/25 10:29) Unknown clarithromycin (From Biaxin) Allergy (Unknown, Verified 09/22/25 10:29) Unknown clavulanic acid (From Augmentin) Allergy (Unknown, Verified 09/22/25 10:29) Unknown codeine Allergy (Unknown, Verified 09/22/25 10:29) Unknown oxycodone Allergy (Unknown, Verified 09/22/25 10:29) Unknown pentazocine (From Talwin) Allergy (Unknown, Verified 09/22/25 10:29) Unknown salsalate (From Disalcid) Allergy (Unknown, Verified 09/22/25 10:29) Unknown Medication List - Last Reconciled 09/22/25 by Laila Shah CNP apixaban (Eliquis) 5 mg PO BID cholecalciferol (vitamin D3) (Vitamin D3) 25 mcg PO DAILY clopidogrel 75 mg PO DAILY cyanocobalamin (vitamin B-12) 1,000 mcg PO DAILY digoxin 125 mcg PO Q OTHER DAY empagliflozin (Jardiance) 10 mg PO QAM estradiol 0.01%(0.1mg/gram) vaginal ezetimibe 10 mg PO DAILY fluticasone furoate-vilanterol 100-25 mcg/dose (Breo Ellipta) 1 ea inhalation DAILY fluticasone propionate 50 mcg/actuation sprays intranasal hydromorphone mg PO metoprolol succinate ER 50 mg PO DAILY montelukast 10 mg PO QPM naproxen 500 mg PO Q12H PRN nortriptyline 25 mg PO BEDTIME pantoprazole 40 mg PO BID rosuvastatin 20 mg PO BEDTIME spironolactone 25 mg PO DAILY umeclidinium 62.5 mcg/actuation (Incruse Ellipta) 1 inh inhalation DAILY zolpidem 5 mg PO BEDTIME PRN HPI Comments Details: She was here with ongoing headaches and fatigue. She was taking nortriptyline at bedtime, but medication did not seem to be helping. She thought headaches may be related to allergies and she tried Mucinex, saline nasal spray, and Flonase for about 2 months which was recommended by her PCP without any change in headaches. Headaches were happening almost every day. Pain was usually frontal, above the eyes, and pressure-type. No photophobia, sonophobia, nausea, or vomiting. She usually felt okay when she woke up, but pain gradually started and increased as the day went on. She needed to lay down for about an hour to an hour and a half every day after lunch. If she could not lay down, headaches were worse and she felt very tired. After laying down and being able to close her eyes, headaches were ?less intense . Naproxen as needed was helping some. For the last few months, she has also been more tired during the day and her energy was not so good. Sleep was okay at night with CPAP. She had R foot surgery in 06/2025 and had Watchman procedure on 07/27/2025, on Plavix and Eliquis for now with plan to stop Eliquis in the future. Had double bypass surgery in 08/2024. Left leg is bit weaker. No stamina. Needs to nap by early afternoon. Sleeping about 9-10 hours/night, using CPAP. Gets some headaches, bifrontal pressure and eyes feel heavy. No photophobia, sonophobia, nausea, or vomiting. More headaches when cloudy or rainy. Barium swallow study was okay, pantoprazole increased to twice a day which has helped with swallowing and feeling of food getting stuck. No issues with speech. Headaches are a frontal pressure above eyes, head and eyes feel heavy with low energy and fatigue. More headaches when cloudy or rainy. No photophobia, sonophobia, nausea, or vomiting. Had cardiac cath with stent placement on 03/10/2024, was found to have 95% blockage. Was hospitalized x2 in 12/2022 while in [place] for CHF exacerbation, pulmonary infection, and foot infection. Reports hx of stroke in 07/2021 following aortic valve replacement, presented with word finding difficulty, seen at [facility]. No speech difficulties, occasional difficulty swallowing. Feels she has some issues with spatial perception as she will knock things over, unsure when this began. No new weaknes s, poor upper body/arm strength following bilateral rotator cuff repair around 2013 and 14 level spinal fusion in 2018. COVID positive x3, last 03/2022 with ongoing daily headaches and has been diagnosed with long COVID. Bifrontal headaches shortly after waking, lasting most of day. No associated symptoms such as photophobia, nausea, or vomiting. Was taking Tylenol 1000mg 1-2x/day for chronic back pain, no relief for headaches. Feels dizzy, describes as sensation of rocking back and forth, feeling unsteady even in sitting position. Tried meclizine without success. CT scan sinuses unremarkable. No significant hx of headaches prior to COVID, except for occasional sinus headache. [facility] Medical History (Updated 09/22/25 @ 10:44 by Laila Shah CNP) Presence of Watchman left atrial appendage closure device CHF (congestive heart failure) ROBBY on CPAP Afib IgG deficiency Asthma Post covid-19 condition, unspecified Surgical History (Updated 08/02/25 @ 12:01 by Laila Shah CNP) S/P foot surgery, right Status post double vessel coronary artery bypass H/O heart artery stent S/P spinal fusion S/P right rotator cuff repair S/P left rotator cuff repair S/P aortic valve replacement Review of Systems Const Denies chills, Denies daytime sleepiness, Denies difficulty sleeping, Reports fatigue, Denies fever(s), Denies frequent falls, Reports headache(s), Denies increased appetite, Denies poor appetite, Denies snoring, Denies weakness, Denies weight gain and Denies weight loss Eyes Denies loss of vision ENT Denies vertigo, Denies dizziness, Reports headache(s) and Reports neck pain Card Denies chest pain at rest, Denies chest pain with activity, Denies syncope, Denies leg edema, Denies palpitations, Denies dyspnea and Denies dyspnea on exertion Resp Denies cough, Denies dyspnea, Denies dyspnea on exertion and Denies snoring GI Denies abdominal pain, Denies constipation, Denies heartburn, Denies diarrhea and Denies nausea Denies urinary frequency, Denies urinary incontinence and Denies urinary urgency Musc Denies abnormal gait, Reports back pain, Reports myalgias, Denies arthralgias, Reports neck pain, Denies numbness and Denies tingling Neuro Denies abnormal gait, Denies vertigo, Denies dizziness, Denies syncope, Denies frequent falls, Reports headache(s), Denies lack of coordination, Denies loss of vision, Denies memory loss, Denies numbness, Denies Other visual disturbances, Denies restless legs, Denies seizure-like activity, Denies tingling, Denies paresthesias, Denies tremor(s) and Denies weakness Psych Reports anxiety, Denies depression, Denies auditory hallucinations, Denies memory loss and Denies visual hallucinations Endo Reports fatigue and Denies palpitations Physical Exam Const Other: General Appearance:? normal, in no acute distress. Heart:? S1, S2 normal, no murmurs. Lungs:? clear anteriorly and posteriorly. Musculoskeletal:? normal. Extremities:? no edema. Psych:? alert, oriented, cognitive function intact, cooperative with exam. 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 5-/5 L iliopsoas. With walker. Mental Status: alert and oriented X 3. Normal attention, orientation, memory, and affect. Cranial Nerves: Pupils are equal, round, and reactive to light. External ocular muscles are intact. Visual cobb are full, no ptosis. Face is symmetrical, no facial weakness or droop. Facial sensations are normal. Tongue protrudes in midline. Palate elevates symmetrically. Shoulder shrugging is normal Motor Examination: As above. Sensory Exam: Normal light touch, temperature, pinprick, vibration, and joint- position sensations. Rhomberg sign is absent. Coordination: No ataxia. No titubation. Gait Exam: With walker. Cerebellar Signs: Kybdxq-dd-ztmy is okay. Extrapyramidal System: No tremor, rigidity with normal facial expressions. No bradykinesia. No bradyphrenia. Normal arm swing and posture. No propulsion or retropulsion. Speech: Normal. Results Reviewed Results Reviewed: CTA head/neck at [facility] 07/2021: 1. No acute intracranial large vessel occlusion. 2. Atherosclerotic changes of the aortic arch and great vessels (Calcified plaque or embolus is noted within the left posterior sylvian fissue related to a left MCA branch vessel). 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 Focal hypodensity within the subcortical white matter of the left frontal lobe-centrum semioval which is nonspecific but given the clinical history could represent small recent ischemic infarction (reported). MRI brain WO at [facility] 07/2021: Acute-subacute left centrum semiovale, left posterior parietotemporal, and left putamen infarcts without hemorrhagic transfo rmation (reported) Assessment & Plan Assessment & Plan (1) Tension headache: Code(s): G44.209 - Tension-type headache, unspecified, not intractable Category: Medical Plan: Decrease nortriptyline 10mg 1-2 capsules at bedtime. Start topiramate 25mg 1 tablet at bedtime, use/side effects reviewed. Start rrtnjkdjlb-GONR-whdh 50-325-40mg 1 tablet q8h as needed for headaches #10 for 30 days, use/side effects reviewed. * Hold naproxen for now due to risk of bleeding with Eliquis and Plavix CT scan and labs ordered. May consider sleep titration study in the future. Follow up after testing or sooner as needed. (2) History of stroke: Comment: following aortic valve replacement in 07/2021 Code(s): Z86.73 - Personal history of transient ischemic attack (TIA), and cerebral infarction without residual deficits Category: Medical Plan: Continue statin, control blood pressure. Plan Meds tried: amitriptyline Orders: Orders Comprehensive Met. Panel Today G44.209 - Tension-type headache, unspecified, not intractable, R53.83 - Other fatigue Vitamin D 1,25 dihydroxy Today R53.83 - Other fatigue C Reactive Protein Today G44.209 - Tension-type headache, unspecified, not intractable Complete Blood Count Auto Diff Today G44.209 - Tension-type headache, unspecified, not intractable, R53.83 - Other fatigue TSH reflex Free T4 Today G44.209 - Tension-type headache, unspecified, not intractable, R53.83 - Other fatigue Vitamin B12 and Folate Today G44.209 - Tension-type headache, unspecified, not intractable, R53.83 - Other fatigue Erythrocyte Sedimentation Rate Today G44.209 - Tension-type headache, unspecified, not intractable CT head/brain wo IV con Today G44.209 - Tension-type headache, unspecified, not intractable, Z86.73 - Personal history of transient ischemic attack (TIA), and cerebral infarction without residual deficits Medications: New pxoklveopm-nauizardmbzsh-ryat 50-325-40 mg 1 tab PO Q8H PRN 10 tabs 2RF headache 30 days nortriptyline 10 - 20 mg (1 - 2 x 10 mg) PO BEDTIME 180 caps 0RF 90 days topiramate 25 mg PO BEDTIME 30 tabs 2RF 30 days Coding Level of Care Code Est Pt Level 4 (50245) Diagnoses Tension headache G44.209 History of stroke Z86.73
== END 2025-09-22 10:55 | disposition home or self-care (01) ==
LOC: HO.HSM 10:23
PROVIDERS: PCP Pediatrics; Visit Provider Registered Nurse
DX: G44.209 Tension-type headache, unspecified, not intractable (principal); Z86.73 Personal history of transient ischemic attack (TIA), and cerebral infarction without residual deficits
CPT/HCPCS: 99214

== ENCOUNTER → 2025-09-22 10:23 | Outpatient (BNVA) | payer MEDICARE, SELFPAY | PROVIDERS: PCP Pediatrics; Visit Provider Registered Nurse | DX: G44.209 Tension-type headache, unspecified, not intractable (principal); Z86.73 Personal history of transient ischemic attack (TIA), and cerebral infarction without residual deficits; R53.83 Other fatigue | CPT/HCPCS: 99212 ==